=== PATIENT | female | born 1975 | race Caucasian/White ===

== ENCOUNTER 2019-09-29 21:25 | Inpatient (IN) | payer MEDICARE, MEDICAID, SELFPAY ==
[2019-09-29 21:58] VITALS: BP 129/64; PULSE 98; RESP 28; TEMP 37.4; O2SAT 93
[2019-09-29] MEDS: LORAZEPAM INJ 2 MG/ML VIAL IM ×2 (22:00→22:33)
[2019-09-29] MEDS: HALOPERIDOL LACTATE 5 MG/ML VIAL IM ×2 (22:00→22:33)
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
--- NOTE | 2019-09-29 23:14 | PC.NURSE ---
REPORT PROVIDED TO ONCOMING RNFANG
[2019-09-29 23:27] LABS: Add Urine Microscopic? NO; Appearance Urine Clear (Clear); Bilirubin Urine Negative (Negative); Blood Urine Negative (Negative); Color Urine Yellow (Yellow); Glucose Urine UA Negative (Negative); Ketones Urine Negative (Negative); Leukocyte Esterase Ur Negative LEU/UL (Negative); Nitrate Urine Negative (Negative); Protein Urine Negative (Negative); Specific Grav Ur 1.015 (1.010-1.020); Urobilinogen Urine 0.2 mg/dL (0.2-1.0)
[2019-09-29 23:27] LABS: Basophils Absolute Auto 0.04 K/mm3 (0.00-0.10); Basophils Percent Auto 0.2 % (0.0-1.0); Hematocrit 43.2 % (35.0-49.0); Hemoglobin 14.2 g/dL (12.0-15.0); Immature Granulocyte Absolute 0.07 K/mm3 (0.00-0.00); Immature Granulocyte Percent A 0.4 % (0.0-0.0); Lymphocytes Absolute Auto 1.12 K/mm3 (1.10-4.50); Lymphocytes Percent Auto 6.9 % (18.0-42.0); Mean Corpuscular HGB Conc 32.9 g/dL (32.0-36.0); Mean Corpuscular Hemoglobin 30.8 pg (27.0-31.0); Mean Corpuscular Volume 93.7 fL (78.0-102.0); Mean Platelet Volume 10.1 fl (9.2-11.8); Monocytes Absolute Auto 1.17 K/mm3 (0.10-0.90); Monocytes Percent Auto 7.3 % (2.0-11.0); Neutrophils Absolute Auto 13.7 K/mm3 (1.7-7.2); Neutrophils Percent Auto 85.2 % (50.0-70.0); Platelet Count Result 265 K/mm3 (150-420); Red Blood Count 4.61 M/mm3 (4.20-5.40); Red Cell Distribution Width 12.6 % (11.6-14.4); White Blood Count 16.1 K/mm3 (4.8-10.8)
[2019-09-29 23:30] LABS: Pregnancy On Board Control Positive; Specific Gravity Ur 1.015 (1.010-1.035); Urine Pregnancy Test Negative
[2019-09-29 23:32] LABS: Amphetamine Screen Urine Negative (Negative); Barbiturate Screen Urine Negative (Negative); Benzodiazepines Screen Urine Negative (Negative); Cannabinoid Screen Urine Negative (Negative); Cocaine Screen Urine Negative (Negative); Methadone Screen Urine Negative (Negative); Opiate Screen Urine Negative (Negative); Phencyclidine Screen Urine Negative (Negative)
[2019-09-29 23:43] LABS: Alanine Aminotransferase 28 U/L (14-59); Albumin Level 3.6 g/dL (3.4-5.0); Alkaline Phosphatase 72 U/L (46-116); Anion Gap 17.3 mmol/L (7-16); Aspartate Amino Transferase 30 U/L (15-37); Bilirubin,Total 0.4 mg/dL (0.00-1.00); Blood Urea Nitrogen 18 mg/dL (7-18); Calcium 9.3 mg/dL (8.5-10.1); Carbon Dioxide 25 mmol/L (21-32); Chloride 106 mmol/L (98-108); Estimated CRCL calculation 47 ml/min; Estimated Glomerular Filt Rate 47; Glucose 95 mg/dL (70-99); Osmolality Calculated 299 mOsm/kg (285-295); Potassium 4.3 mmol/L (3.5-5.1); Salicylate 0.9 mg/dL (2.8-20.0); Sodium 144 mmol/L (136-145); Thyroid Stimulating Hormone 4.52 uIU/mL (0.36-3.74); Total Protein 6.8 g/dL (6.4-8.2)
[2019-09-29 23:44] LABS: Acetaminophen 0 ug/mL (10-30); Creatine Kinase 553 U/L (26-192); Ethanol < 3 mg/dL (0-6)
--- NOTE | 2019-09-29 23:55 | PC.NURSE ---
Call placed to [facility] and obtained their advice to transfer to [facility] where her Neuro Drs. and psychiatrists are located. Parents request transfer to [facility] where her DrBlaire is located and mom states she has Health care POA. Call placed by Dr. Tran to [facility] for consult and possible transfer.
[2019-09-29 23:59] VITALS: BP 103/50; PULSE 94; RESP 20; O2SAT 99
[2019-09-30] VITALS (8 sets, daily range): BP systolic 106–145; BP diastolic 70–90; PULSE 72–108; RESP 16–20; TEMP 36.3–36.6; O2SAT 97–100; BMI 23.6
--- NOTE | 2019-09-30 00:16 | PC.NURSE ---
ERP discussing case c hospitalist at [facility]. Advised consult c psych at [facility] for possible transfer and admit. ERP Dr. Tran to speak c psych intake at [facility].
--- NOTE | 2019-09-30 00:36 | PC.NURSE ---
Call placed to floor for ER hold until psych consult in AM per [facility] advice. May need to re-evaluate in AM and call back for psych transfer. Call placed to [facility] and report given. Pt. will go to Rm 206 for close obs and Hold until bed placement is found.
--- NOTE | 2019-09-30 01:17 | PC.NURSE ---
0100 Pt. moved to ED hold Rm 206 and kept on cot in restraints, protocol followed for restraints and report given to Mary Murdock and SAMY Denis.
--- NOTE | 2019-09-30 02:00 | PC.NURSE ---
0100 Pt to 206 as an ER hold. Pt is agitated and disoriented and in 4 point restraints. Pt is attempting to hit and kick at caregivers at this time.
--- NOTE | 2019-09-30 02:13 | PC.NURSE ---
0100 [facility] room 206 from ER via stretcher, accompanied by physician, ER nurse & sitter. Pt thrashing, kicking yelling. MICHAEL wrist and ankle restraints in place.
--- NOTE | 2019-09-30 02:36 | PC.NURSE ---
Spo2 @ 0230 97% pulse 84.
--- NOTE | 2019-09-30 03:02 | PC.NURSE ---
0300 Dr. Tran here to see pt. Pt was given haldol 5mg and ativan 2 mg IM to the right thigh to relieve agitation.
[2019-09-30] MEDS: HALOPERIDOL LACTATE 5 MG/ML VIAL IM ×2 (03:08→08:45)
[2019-09-30] MEDS: LORAZEPAM INJ 2 MG/ML VIAL IM ×2 (03:08→11:46)
--- NOTE | 2019-09-30 03:35 | PC.NURSE ---
Spo2 98% pulse 90.
--- NOTE | 2019-09-30 04:30 | PC.NURSE ---
Spo2 100% pulse 84
--- NOTE | 2019-09-30 05:34 | PC.NURSE ---
Spo2 98% pulse 62.
--- NOTE | 2019-09-30 06:27 | PC.NURSE ---
Spo2 99% pulse 62.
--- NOTE | 2019-09-30 07:40 | PC.NURSE ---
Patient cooperative with nurse taking vital signs. Patient mumbling incoherently, restraints loosened, pulses/circulation good. Patient denies any pain. Sitter continue in room with patient.
--- NOTE | 2019-09-30 08:11 | PC.NURSE ---
Pt. returned to ER psych hold rm 5 and placed c camera on and sitter in place outside door.
--- NOTE | 2019-09-30 08:19 | PC.NURSE ---
0800 SITTING IN ROOM WITH PATIENT. PATIENT GETS RESTLESS WITH ANY VOICE STIMULI SHE HEARS FROM HALLWAY, NURSES STATION, OR PEOPLE WALKING BY (THE DOOR IS CLOSED). PATIENT ALSO STARTS TALKING UNRATIONAL WHEN SHE HEARS VOICES OR SOUNDS. KEEPS REPEATING I HEAR YOU, I HEAR YOU, I KNOW WHAT YOU ARE SAYING. I'M GOING TO TAKE CARE IT. LOTS OF TIMES SHE WAS TALKING INSENSIBLE-RAMBLING ON FLIGHT OF IDEAS.
[2019-09-30] MEDS: LORAZEPAM INJ 2 MG/ML VIAL IV PUSH ×4 (08:57→23:54)
--- NOTE | 2019-09-30 09:02 | PC.NURSE ---
0850 Pt. continues to thrash and yell in bed and talking nonsensicle garbled speech. Pt. uncoop. c care and unable to redirect or reorient. Orders obtained for Haldol and Ativan per ERP order. VSS,
--- NOTE | 2019-09-30 09:04 | PC.NURSE ---
ERp called [facility] psych center for bed placement and possible transfer. No beds at this time, # given to fax info on pt. for review and will call back when bed available.
--- NOTE | 2019-09-30 10:01 | PC.NURSE ---
Call back from Dr. Peña, speaking c ERP and advises transfer to someplace in [place]. Dr. Peña states she will speak c pts. mom (POA) to explain need for transfer to another facility.
--- NOTE | 2019-09-30 10:46 | PC.NURSE ---
ERP and this RN spoke c NALLELYA, pts. mom about transfer to appropriate facility that can care for her neuropsych issues. Mom agreeable to transfer to facility in [place] at [facility] if able to accept. Call placed to [facility].
--- NOTE | 2019-09-30 11:54 | PC.NURSE ---
Report to Mary Cameron
--- NOTE | 2019-09-30 12:24 | PC.NURSE ---
Pt continues to thrash, nonsensical speech. sitter at bedside. pt has some redness to wrists from fighting with restraints despite proper calming therapies and close observation. Pt has bruising noted to bilateral legs. Pt does not make sense when she is trying to communicate with staff. Mother asked to step away while we attempt to calm pt.
--- NOTE | 2019-09-30 13:36 | PC.NURSE ---
[facility] called and asked if we would like to speak with psych at [facility], transfered to psych rn charge and message left.
--- NOTE | 2019-09-30 13:45 | PC.NURSE ---
[facility] declined to accept pt.
--- NOTE | 2019-09-30 14:03 | PC.NURSE ---
[facility] contacted about medical bed. Dr Cordova speaking with access line.
--- NOTE | 2019-09-30 14:22 | PC.NURSE ---
[facility] to [facility] contacted.
--- NOTE | 2019-09-30 14:42 | ECG_ITS ---
Measurements Intervals Winter Rate: 65 P: 67 GA: 136 QRS: 58 QRSD: 90 T: 52 QT: 425 QTc: 443 Interpretive Statements SINUS RHYTHM [address] ELEVATION IN DIFFUSE LEADS- PROBABLY EARLY REPOLARIZATION BORDERLINE ECG Electronically Signed On 10-01-2019 7:26:28 CDT by Ramu Zuluaga D.O.
[2019-09-30] MEDS: SODIUM CHLORIDE 0.9% IV 1,000 ML 999 ML IV CONT ×2 (14:59→15:50)
[2019-09-30] MEDS: HALOPERIDOL LACTATE 5 MG/ML VIAL IV PUSH (14:59)
--- NOTE | 2019-09-30 15:00 | PC.NURSE ---
[facility] returned call to state they have no bed available.
[2019-09-30 15:01] LABS: Basophils Absolute Auto 0.03 K/mm3 (0.00-0.10); Basophils Percent Auto 0.3 % (0.0-1.0); Eosinophils Absolute Auto 0.01 K/mm3 (0.02-0.50); Eosinophils Percent Auto 0.1 % (1.0-6.0); Hemoglobin 14.4 g/dL (12.0-15.0); Immature Granulocyte Absolute 0.04 K/mm3 (0.00-0.00); Immature Granulocyte Percent A 0.4 % (0.0-0.0); Lymphocytes Absolute Auto 1.93 K/mm3 (1.10-4.50); Lymphocytes Percent Auto 18.6 % (18.0-42.0); Mean Corpuscular HGB Conc 32.7 g/dL (32.0-36.0); Mean Corpuscular Hemoglobin 30.6 pg (27.0-31.0); Mean Corpuscular Volume 93.6 fL (78.0-102.0); Mean Platelet Volume 10.1 fl (9.2-11.8); Monocytes Percent Auto 8.7 % (2.0-11.0); Neutrophils Absolute Auto 7.5 K/mm3 (1.7-7.2); Neutrophils Percent Auto 71.9 % (50.0-70.0); Platelet Count Result 261 K/mm3 (150-420); Red Cell Distribution Width 12.7 % (11.6-14.4); White Blood Count 10.4 K/mm3 (4.8-10.8)
[2019-09-30 15:24] LABS: Alanine Aminotransferase 52 U/L (14-59); Albumin Level 3.6 g/dL (3.4-5.0); Alkaline Phosphatase 73 U/L (46-116); Aspartate Amino Transferase 94 U/L (15-37); Bilirubin,Total 0.7 mg/dL (0.00-1.00); Blood Urea Nitrogen 12 mg/dL (7-18); Carbon Dioxide 26 mmol/L (21-32); Chloride 106 mmol/L (98-108); Estimated CRCL calculation 56 ml/min; Estimated Glomerular Filt Rate 58; Glucose 84 mg/dL (70-99); Osmolality Calculated 292 mOsm/kg (285-295); Sodium 142 mmol/L (136-145); Total Protein 6.7 g/dL (6.4-8.2)
[2019-09-30 15:35] LABS: Ammonia < 10 umol/L (11-32)
--- NOTE | 2019-09-30 16:50 | PC.NURSE ---
Valproic acid infusion completed. 110ml infused.
[2019-09-30] MEDS: OLANZapine 10 MG INJ VIAL IM (21:08)
--- NOTE | 2019-09-30 21:29 | PC.NURSE ---
dr najera called to recheck restraints, informed she was continent and catheter was not needed at this time, pt is kicking in bed and sitting up tugging at restraints, mumbling incoherently, x2 nurses to give pt IM injection, koban taken off and reapplied to iv site, ankle restraints reapplied, ok per dr najera, questioned pt as to need for bed lambert to which she replied no, restraints removed and loosened on wrists then reapplied
[2019-10-01] VITALS (11 sets, daily range): BP systolic 104–160; BP diastolic 48–93; PULSE 65–96; RESP 16–22; TEMP 36.2–36.9; O2SAT 96–100
[2019-10-01] MEDS: OLANZapine 10 MG INJ VIAL IM (04:41)
[2019-10-01] MEDS: LORAZEPAM INJ 2 MG/ML VIAL IV PUSH ×7 (04:41→23:36)
--- NOTE | 2019-10-01 07:26 | PC.NURSE ---
Ivett RT in room to do EKG. Patient refused. patient stated I had one yesterday I don't need one again today.
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
[2019-10-01] MEDS: CLONAZEPAM 0.5 MG TAB 1 MG PO ×3 (08:46→17:10)
[2019-10-01] MEDS: FERROUS SULFATE 324 MG TABLET PO (08:48)
[2019-10-01] MEDS: lamoTRIgine 100 MG TABLET 200 MG PO (08:48)
[2019-10-01] MEDS: TOPIRAMATE 25 MG TABLET 50 MG PO ×2 (08:48→17:09)
[2019-10-01] MEDS: MORPHINE SULFATE 2 MG/ML INJ IV PUSH ×2 (08:49→19:19)
[2019-10-01] MEDS: METOPROLOL TARTRATE 25 MG TABLET PO ×2 (08:54→17:09)
[2019-10-01 10:57] LABS: Basophils Absolute Auto 0.04 K/mm3 (0.00-0.10); Basophils Percent Auto 0.5 % (0.0-1.0); Hematocrit 42.3 % (35.0-49.0); Hemoglobin 13.8 g/dL (12.0-15.0); Immature Granulocyte Absolute 0.04 K/mm3 (0.00-0.00); Immature Granulocyte Percent A 0.5 % (0.0-0.0); Lymphocytes Absolute Auto 1.42 K/mm3 (1.10-4.50); Lymphocytes Percent Auto 16.9 % (18.0-42.0); Mean Corpuscular HGB Conc 32.6 g/dL (32.0-36.0); Mean Corpuscular Volume 95.1 fL (78.0-102.0); Mean Platelet Volume 9.9 fl (9.2-11.8); Monocytes Absolute Auto 0.56 K/mm3 (0.10-0.90); Monocytes Percent Auto 6.7 % (2.0-11.0); Neutrophils Absolute Auto 6.3 K/mm3 (1.7-7.2); Neutrophils Percent Auto 75.4 % (50.0-70.0); Platelet Count Result 224 K/mm3 (150-420); Red Blood Count 4.45 M/mm3 (4.20-5.40); Red Cell Distribution Width 12.7 % (11.6-14.4); White Blood Count 8.4 K/mm3 (4.8-10.8)
--- NOTE | 2019-10-01 11:15 | PC.NURSE ---
Patients wrists released one at a time for ROM and relief. Patient incontinent. bed linens/gown changed, adult diaper put on.
--- NOTE | 2019-10-01 11:48 | PC.NURSE ---
Patient mother at bedside. Right wrist released from restraint. Using right arm and hand appropriately to drink water with. Will continue to closly monitor.
[2019-10-01 11:56] LABS: Magnesium 2.1 mg/dL (1.8-2.4); Phosphorus 4.1 mg/dL (2.6-4.7)
[2019-10-01 11:57] LABS: Troponin I < 0.02 ng/mL (0.00-0.056)
--- NOTE | 2019-10-01 12:00 | PCDIET ---
Jaimee WHITLEY notified of [facility] 9.8.
[2019-10-01 12:01] LABS: Anion Gap 15.5 mmol/L (7-16); Carbon Dioxide 23 mmol/L (21-32); Chloride 110 mmol/L (98-108); Potassium 4.5 mmol/L (3.5-5.1); Sodium 144 mmol/L (136-145)
[2019-10-01 12:02] LABS: Alanine Aminotransferase 51 U/L (14-59); Albumin Level 3.3 g/dL (3.4-5.0); Alkaline Phosphatase 82 U/L (46-116); Aspartate Amino Transferase 71 U/L (15-37); Bilirubin,Total 0.7 mg/dL (0.00-1.00); Blood Urea Nitrogen 11 mg/dL (7-18); Estimated CRCL calculation 62 ml/min; Estimated Glomerular Filt Rate > 60; Glucose 67 mg/dL (70-99); Osmolality Calculated 295 mOsm/kg (285-295); Total Protein 6.1 g/dL (6.4-8.2)
[2019-10-01] MEDS: DIVALPROEX SODIUM 250 MG TABEC PO ×2 (12:03→17:11)
--- NOTE | 2019-10-01 12:42 | PC.NURSE ---
Pt able to release right wrist restraint. bilateral wrist restraints replaced with assist of 2. skin intact. no redness noted.
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
[2019-10-01 14:43] LABS: Creatine Kinase > 1000 U/L (26-192)
[2019-10-01 14:44] LABS: Creatine Kinase > 1000 U/L (26-192)
--- NOTE | 2019-10-01 21:20 | PC.NURSE ---
notified that patient was extremely agitated. New order received.
--- NOTE | 2019-10-01 22:10 | PC.NURSE ---
MD notified that wrong dose of Depakote given. Will continue to monitor. Lab obtained per MD order.
--- NOTE | 2019-10-01 22:11 | PC.NURSE ---
Patient extremely agitated throughout shift. Attempts made to release restraints. Able to release hands and legs for short period of times, but patient becomes agitated again and restraints reapplied.
--- NOTE | 2019-10-01 23:40 | PC.NURSE ---
Patient yelling and kicking, required 3 staff and mother's help to give Ativan 2mg IVP for agitation. Mother requests MD called to have Ativan changed to oral doseage in future as IVP medication aggitates patient. Patien remains on 1:1 observation and 4 point restraints.
[2019-10-02] VITALS: BP 107/73; PULSE 91; RESP 22; TEMP 37.1; O2SAT 98
[2019-10-02 01:57] LABS: Hematocrit 42.4 % (35.0-49.0); Mean Corpuscular Hemoglobin 30.9 pg (27.0-31.0); Mean Corpuscular Volume 93.6 fL (78.0-102.0); Mean Platelet Volume 9.7 fl (9.2-11.8); Platelet Count Result 256 K/mm3 (150-420); Red Blood Count 4.53 M/mm3 (4.20-5.40); Red Cell Distribution Width 12.6 % (11.6-14.4)
--- NOTE | 2019-10-02 02:22 | PC.NURSE ---
Mother here and voicing concerns about patient medical management at [place], [place]. Would like patient to go to [facility] for differential diagnosis of symptoms.
[2019-10-02 02:42] LABS: Alanine Aminotransferase 55 U/L (14-59); Albumin Level 3.4 g/dL (3.4-5.0); Alkaline Phosphatase 79 U/L (46-116); Anion Gap 15.2 mmol/L (7-16); Aspartate Amino Transferase 63 U/L (15-37); Bilirubin,Total 0.5 mg/dL (0.00-1.00); Blood Urea Nitrogen 14 mg/dL (7-18); Calcium 8.9 mg/dL (8.5-10.1); Carbon Dioxide 24 mmol/L (21-32); Chloride 110 mmol/L (98-108); Estimated CRCL calculation 56 ml/min; Estimated Glomerular Filt Rate 59; Glucose 98 mg/dL (70-99); Osmolality Calculated 300 mOsm/kg (285-295); Potassium 4.2 mmol/L (3.5-5.1); Sodium 145 mmol/L (136-145); Total Protein 6.7 g/dL (6.4-8.2)
--- NOTE | 2019-10-02 02:45 | PC.NURSE ---
Mother states she would like Ativan held if patient sleeping to promote rest. States plan to sleep on couch; Patient remains on continuous observation.
--- NOTE | 2019-10-02 02:45 | PC.NURSE ---
Mother requests staff wait until patient wakes up for Vital Signs and Ativan.
[2019-10-02 03:13] LABS: Troponin I < 0.02 ng/mL (0.00-0.056)
--- NOTE | 2019-10-02 04:31 | PC.NURSE ---
Sleeping, mother in room, sleeping on couch. Skin pink, respirations easy/unlabored. Vital Signs and Ativan held until patient awakens.
--- NOTE | 2019-10-02 05:26 | PC.NURSE ---
Spoke with [employer] PharmacistJaimee regarding order clarification: Ativan 2mg po q4 hours then change Ativan 2mg IVP prn if refuses po Ativan.
--- NOTE | 2019-10-02 06:19 | PC.NURSE ---
Mother going home; patient remains in loose restraints and close observation.
[2019-10-02 08:00] VITALS: BP 102/46; PULSE 74; RESP 18; TEMP 36.4; O2SAT 98
[2019-10-02 09:25] VITALS: PULSE 82
[2019-10-02] MEDS: TOPIRAMATE 25 MG TABLET 50 MG PO ×2 (09:25→17:10)
[2019-10-02] MEDS: METOPROLOL TARTRATE 25 MG TABLET PO (09:25)
[2019-10-02] MEDS: CLONAZEPAM 0.5 MG TAB 1 MG PO ×2 (09:25→15:33)
[2019-10-02] MEDS: lamoTRIgine 100 MG TABLET 200 MG PO (09:26)
[2019-10-02] MEDS: LORAZEPAM 1 MG TABLET 2 MG PO ×3 (09:26→17:10)
[2019-10-02] MEDS: FERROUS SULFATE 324 MG TABLET PO (09:27)
[2019-10-02 10:54] LABS: Creatine Kinase > 1000 U/L (26-192)
--- NOTE | 2019-10-02 11:06 | PC.NURSE ---
Addendum entered by Marisa Chen RN 10/02/19 11:24: @0700 patient is sound asleep. resp even and unlabored. Original Note: @0900 patient remains calm and four point restraints removed sitting up in bed. talks but words are jumbled. talks to someone that is not there. @ x's a few choice words that are come out clear and then back to jumbled. feeding self and drinks all of juice and ensure. eating ice cream. did get oral am meds down. plays with her genitals and claims she is good girl 1015 she is getting more agitated. rocking in bed. playing with the air. her chants of unrecognizable words are getting louder and more angry sounding. starts throwing ensure container across room. declines need to use bathroom. back in four point restraints. sitter with her. 1120 sits up in bed off and on yelling at someone that is not here. jerks at restraints and lies back down. restraints are checked
--- NOTE | 2019-10-02 13:01 | PM.IMPN ---
Progress Note: A&P Assessment and Plan (1) Dementia associated with other underlying disease with behavioral disturbance: Onset Date: Unknown <Jaimee Almeida NP - Last Filed: 10/02/19 15:35> Code(s): F02.81 - Dementia in other diseases classified elsewhere with behavioral disturbance <Jaimee Almeida NP - Last Filed: 10/02/19 15:35> Status: Acute <Jaimee Almeida NP - Last Filed: 10/02/19 15:35> Assessment and Plan: MRI results was 4 years ago in 2016 and showed Advanced volume loss of brain matter for her age at that time. Her PCP was hoping for patient to get to [place] or [facility] or [facility] for further advanced workup of Neuro/Psych matters. currently A and O x1-2. incontinent voids Talks, moves extremities, eats, drinks, voids. Walking on September 28, restraints at this time. <Jaimee Almeida NP - Last Filed: 10/02/19 15:35> (2) Schizo-affective schizophrenia, chronic condition with acute exacerbation: Onset Date: ~09/29/19 <Jaimee Almeida NP - Last Filed: 10/02/19 15:35> Code(s): F25.9 - Schizoaffective disorder, unspecified <Jaimee Almeida NP - Last Filed: 10/02/19 15:35> Status: Acute <Jaimee Almeida NP - Last Filed: 10/02/19 15:35> Assessment and Plan: continued hallucinations and delusions (auditory and visual - seeing and hearing multiple other humans or personalities alongside her bed in her hospital room) disorganized speech persistent with intermittent periods of clear and understandable speech flat affect and inability to look you in the eye impaired attention unable to test memory - but mother /grit blaster stated that Marisa is currently at her Alert and Orientation Baseline (unable to tell you Month/Date/year/Location) for the last several months. treating with Clozapine and Olanzapine; also had haldol and depakote at admission. no concerning tardive dyskinesia noted at this time (her mother stated in the past with multiple Zyprexa doses that she had started to show). continuous nursing checks and monitoring, bed alarm on, room by nurses station. Safety/Suicide/Fall Risk precautions ordered. <Jaimee Almeida NP - Last Filed: 10/02/19 15:35> (3) Seizure disorder: Onset Date: Unknown <Jaimee Almeida NP - Last Filed: 10/02/19 15:35> Code(s): G40.909 - Epilepsy, unspecified, not intractable, without status epilepticus <Jaimee Almeida NP - Last Filed: 10/02/19 15:35> Status: Acute <Jaimee Almeida NP - Last Filed: 10/02/19 15:35> Assessment and Plan: Seizure precautions placed nursing monitoring and sitter watch room at nurses station mother and grit blaster reports no generalized seizures noted in several weeks/months. Monitoring CBC, CMP with K/Mag/PHos, Cardiac Panel, TSH, urine drug panel completed. <Jaimee Almeida NP - Last Filed: 10/02/19 15:35> (4) Acute exacerbation of psychosis: Onset Date: ~09/29/19 <Jaimee Almeida NP - Last Filed: 10/02/19 15:35> Code(s): F29 - Unspecified psychosis not due to a substance or known physiological condition <Jaimee Almeida NP - Last Filed: 10/02/19 15:35> Status: Acute <Jaimee Almeida NP - Last Filed: 10/02/19 15:35> Assessment and Plan: see plan for Schizoaffective disorder, acute on chronic PRN Haldol as needed. titrating psych and anti-anxiety medications as patient's behavior and status warrant. Monitoring CBC, CMP with K/Mag/PHos, Cardiac Panel, TSH, urine drug panel completed. Ordered MRI on Friday, CT head was already ordered at admission Blood and urine cultures, ABG and Lactic ordered. <Jaimee Almeida NP - Last Filed: 10/02/19 15:35> (5) Menopausal symptoms: Onset Date: Unknown <Jaimee Almeida NP - Last Filed: 10/02/19 15:35> Code(s): N95.1 - Menopausal and female climacteric states <Jaimee Almeiad NP - Last Filed: 10/02/19 15:35> Status:
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
[2019-10-02 15:00] LABS: Lactate Dehydrogenase 454 U/L (81-234)
--- NOTE | 2019-10-02 15:19 | PC.NURSE ---
mental health dontae fajardo is here to speak with mother and karolinaal pt, pt is yelling and refusing to take her po meds in ice cream
--- NOTE | 2019-10-02 15:21 | PC.NURSE ---
[facility] here to eval her.
[2019-10-02 16:00] VITALS: BP 130/83; PULSE 108; RESP 20; TEMP 37.3
--- NOTE | 2019-10-02 16:12 | PC.NURSE ---
pt stated she had to pee, attempted to put her on bedpan, pt became extremely agitated and refused, able to reattach diaper once she calmed down, mother breezy is in waiting room speaking with mental health
--- NOTE | 2019-10-02 17:57 | PC.NURSE ---
mother in room, pt took some of her pills after multiple attempts with ice cream, pt continues to scream incoherently, dr is aware we are unable to place tele or fluids on her at this time
--- NOTE | 2019-10-02 18:34 | PC.NURSE ---
mental health advocate, reginaldo, has had no luck finding placement, 11 hospitals called, 2 she is supposed to call back at 1999 and let us know, she is with breezy now giving her an update before she leaves, pt is sitting up in bed, kicking legs, mumbling to herself
[2019-10-02 20:00] VITALS: BP 147/100; PULSE 105; RESP 24; TEMP 37.2; O2SAT 98
[2019-10-02] MEDS: LORAZEPAM INJ 2 MG/ML VIAL IV PUSH (21:41)
--- NOTE | 2019-10-02 21:45 | PC.NURSE ---
4 nurses required to start new iv, iv in L foot, infiltrated iv removed in R AC, catheter intact, ankle restraints removed and then repositioned, pt is hysterical and attempting to kick staff, pt is incontinent of urine, gown changed
[2019-10-02] MEDS: SODIUM CHLORIDE 0.9% IV 500 ML 300 ML (22:04)
[2019-10-03] VITALS: BP 116/72; PULSE 64; RESP 16; TEMP 36.3; O2SAT 100
--- NOTE | 2019-10-03 | PC.NURSE ---
Restraint released. Changed sheets. Changed gown. Deoderant. Transferred patient from bed to commode.
[2019-10-03] MEDS: LORAZEPAM INJ 2 MG/ML VIAL IV PUSH ×3 (01:24→11:16)
--- NOTE | 2019-10-03 01:51 | PC.NURSE ---
pt thrashing around in bed. Sobbing and crying. rambling on about how she is a manager star, calls herself Meghan Julio and wants nurse to call Florinda De León and tell him that we have her confused with someone else. reality orientation provided, unsuccessful. 4 point restraints remain in place. Ativan was given IVP since patient refused oral. no evidence of pain. circulation to all extremities WNL. fluids offered, pt refused.
--- NOTE | 2019-10-03 04:33 | PC.NURSE ---
pt uncooperative with vitals check. thrashing around in bed. rambling non stop. delusional, speaking to people who are not present. pt has 2 different voices that she uses. She speaks to a Kylee and then speaks to a Marisa. continuous rambling about child molesters, sex offenders, and people touching her, looking at her and taking photos. crying off and on. 4 point restraints continue. circulation to all extremities WNL. pt refuses fluids when offered, screams and thrashes when nurse approaches. repositions self in the bed. under continuous monitoring for safety.
--- NOTE | 2019-10-03 05:14 | PC.NURSE ---
pt refused po ativan. attempted to put pills in majic cup, pt cont to refuse to take. IVP ativan given instead as per order.
--- NOTE | 2019-10-03 07:26 | PC.NURSE ---
Brushed patient's hair. Attempted wash patient's face. Patient refused.
[2019-10-03 07:50] VITALS: BP 156/89; PULSE 100; TEMP 36.5; O2SAT 98
[2019-10-03] MEDS: ENOXAPARIN 40 MG/0.4 ML SYRINGE SUB-Q (08:15)
--- NOTE | 2019-10-03 08:45 | PC.NURSE ---
Patient transferred back to bed. Restraints replaced
--- NOTE | 2019-10-03 09:20 | PC.NURSE ---
Yonathan fajardo aware and working on placement
--- NOTE | 2019-10-03 09:34 | PM.IMPN ---
Progress Note: A&P Assessment and Plan (1) Dementia associated with other underlying disease with behavioral disturbance: Onset Date: Unknown <Jaimee Almeida NP - Last Filed: 10/03/19 15:06> Code(s): F02.81 - Dementia in other diseases classified elsewhere with behavioral disturbance <Jaimee Almeida NP - Last Filed: 10/03/19 15:06> Status: Acute <Jaimee Almeida NP - Last Filed: 10/03/19 15:06> Assessment and Plan: MILD. CHRONIC. PROGRESSIVE. Functional/ambulatory and completing ADLs at home prior to this admission, lived with parents. MRI results was 4 years ago in 2016 and showed Advanced volume loss of brain matter for her age at that time. Her PCP was hoping for patient to get to [place] or [facility] or [facility] for further advanced workup of Neuro/Psych matters. currently A and O x1-2. incontinent and continent voids Talks, moves extremities, eats, drinks, voids. Walking on September 28, restraints at this time. <Jaimee Almeida NP - Last Filed: 10/03/19 15:06> (2) Schizo-affective schizophrenia, chronic condition with acute exacerbation: Onset Date: ~09/29/19 <Jaimee Almeida NP - Last Filed: 10/03/19 15:06> Code(s): F25.9 - Schizoaffective disorder, unspecified <Jaimee Almeida NP - Last Filed: 10/03/19 15:06> Status: Acute <Jaimee Almeida NP - Last Filed: 10/03/19 15:06> Assessment and Plan: ACUTE on CHRONIC. continued hallucinations and delusions (auditory and visual - seeing and hearing multiple other humans or personalities alongside her bed in her hospital room) disorganized speech persistent with intermittent periods of clear and understandable speech flat affect and inability to look you in the eye impaired attention unable to test memory - but mother /assembly technician stated that Marisa is currently at her Alert and Orientation Baseline (unable to tell you Month/Date/year/Location) for the last several months. treating with Clozapine and Olanzapine; also had haldol and depakote at admission. no concerning tardive dyskinesia noted at this time (her mother stated in the past with multiple Zyprexa doses that she had started to show). continuous nursing checks and monitoring, bed alarm on, room by nurses station. Safety/Suicide/Fall Risk precautions ordered. <Jaimee Almeida NP - Last Filed: 10/03/19 15:06> (3) Seizure disorder: Onset Date: Unknown <Jaimee Almeida NP - Last Filed: 10/03/19 15:06> Code(s): G40.909 - Epilepsy, unspecified, not intractable, without status epilepticus <Jaimee Almeida NP - Last Filed: 10/03/19 15:06> Status: Acute <Jaimee Almeida NP - Last Filed: 10/03/19 15:06> Assessment and Plan: History of..... CONTROLLED at this time. Patient has not had any s/s of seizures since ED/ER evaluation on 09/28. Seizure precautions placed nursing monitoring and sitter watch room near nurses station mother and assembly technician reports no generalized or partial seizures noted in several weeks/months. Monitoring CBC, CMP with K/Mag/PHos, Cardiac Panel, TSH, urine drug panel completed. <Jaimee Almeida NP - Last Filed: 10/03/19 15:06> (4) Acute exacerbation of psychosis: Onset Date: ~09/29/19 <Jaimee Almeida NP - Last Filed: 10/03/19 15:06> Code(s): F29 - Unspecified psychosis not due to a substance or known physiological condition <Jaimee Almeida NP - Last Filed: 10/03/19 15:06> Status: Acute <Jaimee Almeida NP - Last Filed: 10/03/19 15:06> Assessment and Plan: IMPROVED. see plan for Schizoaffective disorder, acute on chronic PRN Haldol as needed. titrating psych and anti-anxiety medications as patient's behavior and status warrant. Monitoring CBC, CMP with K/Mag/PHos, Cardiac Panel, TSH, urine drug panel completed. Ordered MRI on Friday, CT head was already ordered at admission Blood and urine cultures and Lactic ordered. <Jaimee Henson
--- NOTE | 2019-10-03 09:35 | PC.NURSE ---
Jaimee Almeida, RETENTION SPECIALIST in with patient at this time.
--- NOTE | 2019-10-03 09:45 | PC.NURSE ---
Attempting multiple times to get patient to take medication. Patient refusing. Patient refusing all care. Thrashes, screams.
[2019-10-03 11:03] LABS: Hematocrit 44.4 % (35.0-49.0); Hemoglobin 14.3 g/dL (12.0-15.0); Mean Corpuscular HGB Conc 32.2 g/dL (32.0-36.0); Mean Corpuscular Hemoglobin 30.4 pg (27.0-31.0); Mean Corpuscular Volume 94.3 fL (78.0-102.0); Mean Platelet Volume 9.9 fl (9.2-11.8); Platelet Count Result 256 K/mm3 (150-420); Red Blood Count 4.71 M/mm3 (4.20-5.40); Red Cell Distribution Width 12.7 % (11.6-14.4); White Blood Count 9.6 K/mm3 (4.8-10.8)
[2019-10-03 11:31] LABS: Alanine Aminotransferase 50 U/L (14-59); Albumin Level 3.5 g/dL (3.4-5.0); Alkaline Phosphatase 78 U/L (46-116); Anion Gap 11.7 mmol/L (7-16); Aspartate Amino Transferase 45 U/L (15-37); Bilirubin,Total 0.5 mg/dL (0.00-1.00); Blood Urea Nitrogen 15 mg/dL (7-18); Calcium 9.7 mg/dL (8.5-10.1); Carbon Dioxide 28 mmol/L (21-32); Chloride 112 mmol/L (98-108); Estimated CRCL calculation 57 ml/min; Estimated Glomerular Filt Rate 60; Glucose 106 mg/dL (70-99); Osmolality Calculated 304 mOsm/kg (285-295); Potassium 4.7 mmol/L (3.5-5.1); Sodium 147 mmol/L (136-145)
[2019-10-03 11:32] LABS: Troponin I < 0.02 ng/mL (0.00-0.056)
[2019-10-03 11:33] LABS: Creatine Kinase > 1000 U/L (26-192)
[2019-10-03 11:34] LABS: Ammonia 12 umol/L (11-32)
[2019-10-03 11:35] LABS: Lactate Dehydrogenase 383 U/L (81-234)
[2019-10-03 11:36] LABS: Lactic Acid 2.5 mmol/L (0.4-2.0)
[2019-10-03 12:00] VITALS: BP 133/100; PULSE 107; RESP 24; TEMP 36.8; O2SAT 99
--- NOTE | 2019-10-03 12:33 | PC.NURSE ---
Left wrist restraint removed. Patient eating lunch. Sitter at bedside.
[2019-10-03] MEDS: lamoTRIgine 100 MG TABLET 200 MG PO (13:06)
[2019-10-03] MEDS: TOPIRAMATE 25 MG TABLET 50 MG PO (13:06)
--- NOTE | 2019-10-03 13:27 | PC.NURSE ---
Patient hallucinating and delusional throughout day. Patient talking, yelling, screaming at people that are not there. Several different personalities noticed.
[2019-10-03 13:35] LABS: Bilirubin Direct 0.2 mg/dL (0-0.2)
--- NOTE | 2019-10-03 13:35 | PC.NURSE ---
Patient's mother in room. Attempted to give PO medications. Patient refused.
--- NOTE | 2019-10-03 13:54 | PC.NURSE ---
l@ this time [facility] has no luck with bed. still open bed. they claims she is to check back in a couple hours to [facility]. all other claims no beds. Kyung from [facility] claims there is a neuro unit in [place] and they may have openings on friday.
[2019-10-03] MEDS: OLANZapine 10 MG INJ VIAL IM (13:56)
--- NOTE | 2019-10-03 14:18 | PC.NURSE ---
Depend placed with assistance from mother of patient
[2019-10-03] MEDS: LORAZEPAM INJ 2 MG/ML VIAL IM (15:11)
[2019-10-03] MEDS: MORPHINE SULFATE 2 MG/ML INJ IM (15:15)
--- NOTE | 2019-10-03 15:34 | PC.NURSE ---
Patient resting in bed
[2019-10-03 16:46] VITALS: BP 132/95; PULSE 104; RESP 22; TEMP 36.6; O2SAT 98
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
--- NOTE | 2019-10-03 17:15 | PC.NURSE ---
Patient continues to yell and scream at mother, staff, hallucinations
[2019-10-03 18:15] LABS: Topiramate 1.6 mcg/mL (***)
[2019-10-03 18:28] VITALS: PULSE 104
[2019-10-03] MEDS: METOPROLOL TARTRATE 25 MG TABLET PO (18:28)
[2019-10-03] MEDS: LORAZEPAM 1 MG TABLET 2 MG PO ×2 (18:29→20:24)
[2019-10-03] MEDS: CLONAZEPAM 0.5 MG TAB 1 MG PO (18:29)
[2019-10-03 20:00] VITALS: BP 118/87; PULSE 96; RESP 16; TEMP 37; O2SAT 100
[2019-10-04] MEDS: OLANZapine 10 MG INJ VIAL IM ×2 (00:38→06:03)
[2019-10-04] MEDS: LORAZEPAM 1 MG TABLET 2 MG PO ×4 (00:39→23:21)
[2019-10-04 00:41] LABS: Lamotrigine Lamictal 6.3 mcg/mL (4.0-18.0)
--- NOTE | 2019-10-04 06:12 | PC.NURSE ---
pt has slept all shift. continues under direct supervision. 4 point restraints continue as well. released and circulation assessed frequently. IM zyprexa given, po ativan not given, pt refuses to take.
--- NOTE | 2019-10-04 07:30 | PC.NURSE ---
Patient sleeping quietly in bed at present. Showing no signs of distress. Breathing even and unlabored. Nurse continue to oberserve patient closely.
--- NOTE | 2019-10-04 08:30 | PC.NURSE ---
Patient sleeping quietly and restfully. No signs of distress. Medication being held until patient wakes up per STERILE PREPARATION TECHNICIAN Jaimee.
[2019-10-04 08:45] VITALS: PULSE 58; RESP 20; O2SAT 100
[2019-10-04 09:07] LABS: T4 Thyroxine 12.7 mcg/dL (5.1-11.9)
--- NOTE | 2019-10-04 09:35 | PM.IMPN ---
Progress Note: A&P Assessment and Plan (1) Dementia associated with other underlying disease with behavioral disturbance: Onset Date: Unknown Code(s): F02.81 - Dementia in other diseases classified elsewhere with behavioral disturbance Status: Acute Assessment and Plan: MILD. CHRONIC. PROGRESSIVE. Functional/ambulatory and completing ADLs at home prior to this admission, lived with parents. MRI results was 4 years ago in 2016 and showed Advanced volume loss of brain matter for her age at that time. Her PCP was hoping for patient to get to [place] or [facility] or [facility] for further advanced workup of Neuro/Psych matters. currently A and O x1-2. incontinent and continent voids Talks, moves extremities, eats, drinks, voids. Walking on September 28, restraints at this time. (2) Schizo-affective schizophrenia, chronic condition with acute exacerbation: Onset Date: ~09/29/19 Code(s): F25.9 - Schizoaffective disorder, unspecified Status: Acute Assessment and Plan: ACUTE on CHRONIC. continued hallucinations and delusions (auditory and visual - seeing and hearing multiple other humans or personalities alongside her bed in her hospital room) disorganized speech persistent with intermittent periods of clear and understandable speech flat affect and inability to look you in the eye impaired attention unable to test memory - but mother /heating engineer stated that Marisa is currently at her Alert and Orientation Baseline (unable to tell you Month/Date/year/Location) for the last several months. treating with Clonazepam (same home oral scheduled doses) and Olanzapine (now reduced 5mg Q8hr IM doses); also haldol and depakote were tried at admission. continue home doses of lamotrigine 200mg daily (confirmed with patient's mother and PCP Dr. Peña over the phone) no concerning tardive dyskinesia or blepharitis noted at this time (her mother stated in the past with multiple Zyprexa doses that she had started to show). continuous nursing checks and monitoring, bed alarm on, room by nurses station. Safety/Suicide/Fall Risk precautions ordered. (3) Acute exacerbation of psychosis: Onset Date: ~09/29/19 Code(s): F29 - Unspecified psychosis not due to a substance or known physiological condition Status: Acute Assessment and Plan: IMPROVED. see plan for Schizoaffective disorder, acute on chronic PRN Haldol as needed. titrating psych and anti-anxiety medications as patient's behavior and status warrant. Monitoring CBC, CMP with K/Mag/PHos, Cardiac Panel, TSH, UA, Lactic, blood cultures, urine drug panel completed - stable and improved. CT head ordered (4) Menopausal symptoms: Onset Date: Unknown Code(s): N95.1 - Menopausal and female climacteric states Status: Acute Assessment and Plan: IMPROVING, CONTROLLED, RESOLVED at this time. noted on the first 1 to 2 days of admission: having Somatic Hallucinations with feelings of being touched and Distracted by touching/manipulating her Vagina; moaning and yelling that she is a midaged women going through menopause - RESOLVED - none noted for last 3 days of hospitalization. her mother stated that Marisa had not had a pelvic exam in several years history of grandparent with ovarian cancer unable to complete a pelvic exam or Pap smear at this time. possible hormone changes affecting behavior and Psych medication absorption/effectiveness - Transfer for CONSULTATION inpatient Psychiatrist and/or Psychologist to titrate and manage appropriate Mental health Medications. can be further worked up after Psych behaviours better controlled and patient on a more functional path. DEFERRED. (5) Elevated creatine kinase level: Code(s): R74.8 - Abnormal levels of other serum enzymes Status: Acute Assessment and Plan: CONSISTENT IMPROVEMENT. She is medically stable and ready for Discharge to an Inpatient Psych hospitalization.
--- NOTE | 2019-10-04 09:45 | PC.NURSE ---
Patient sleeping quietly in bed. No signs of distress noted. Breathing unlabored. shows no distress. Medication being held until patient wakes up per FULLING MILL OPERATOR Jaimee.
--- NOTE | 2019-10-04 10:15 | PC.NURSE ---
Patient resting in bed. Restraints remain released at present.
[2019-10-04 10:30] VITALS: BP 115/76; PULSE 99; RESP 20; TEMP 36.7; O2SAT 96
[2019-10-04] MEDS: CLONAZEPAM 0.5 MG TAB 1 MG PO ×3 (11:05→17:07)
[2019-10-04] MEDS: ENOXAPARIN 40 MG/0.4 ML SYRINGE SUB-Q (11:05)
[2019-10-04] MEDS: TOPIRAMATE 25 MG TABLET 50 MG PO ×2 (11:05→17:07)
[2019-10-04] MEDS: FERROUS SULFATE 324 MG TABLET PO (11:05)
[2019-10-04] MEDS: lamoTRIgine 100 MG TABLET 200 MG PO (11:05)
--- NOTE | 2019-10-04 11:05 | PC.NURSE ---
Patient given medication in peanutbutter on garaham crackers. Patient took medication with no issues. Sitting up in bed awake. Pt. unable to follow commands.
--- NOTE | 2019-10-04 11:20 | PC.NURSE ---
Lab here to draw patients blood. This nurse and 3x other nurses required to restraint patient in order to draw blood for labs. Patient tolerated poor to fair. Patient calmed down once labs drawn. Patient remains unrestrained at present.
[2019-10-04 11:29] LABS: Hematocrit 43.6 % (35.0-49.0); Hemoglobin 13.7 g/dL (12.0-15.0); Mean Corpuscular HGB Conc 31.4 g/dL (32.0-36.0); Mean Corpuscular Hemoglobin 30.4 pg (27.0-31.0); Mean Corpuscular Volume 96.9 fL (78.0-102.0); Platelet Count Result 230 K/mm3 (150-420); White Blood Count 7.8 K/mm3 (4.8-10.8)
[2019-10-04 11:45] LABS: Alanine Aminotransferase 44 U/L (14-59); Albumin Level 3.3 g/dL (3.4-5.0); Alkaline Phosphatase 66 U/L (46-116); Anion Gap 14.9 mmol/L (7-16); Aspartate Amino Transferase 38 U/L (15-37); Bilirubin,Total 0.4 mg/dL (0.00-1.00); Blood Urea Nitrogen 14 mg/dL (7-18); Calcium 9.8 mg/dL (8.5-10.1); Carbon Dioxide 27 mmol/L (21-32); Chloride 110 mmol/L (98-108); Estimated CRCL calculation 54 ml/min; Estimated Glomerular Filt Rate 56; Glucose 192 mg/dL (70-99); Osmolality Calculated 309 mOsm/kg (285-295); Potassium 4.9 mmol/L (3.5-5.1); Sodium 147 mmol/L (136-145); Total Protein 6.5 g/dL (6.4-8.2)
[2019-10-04 11:46] LABS: Creatine Kinase 982 U/L (26-192); Lactate Dehydrogenase 289 U/L (81-234)
[2019-10-04 11:49] LABS: Lactic Acid 4.9 mmol/L (0.4-2.0)
--- NOTE | 2019-10-04 12:10 | PC.NURSE ---
[facility] called. spoke with Kyung. no beds available at [facility] at this time. She will check again with Fro[facility] in a few hours.
--- NOTE | 2019-10-04 12:10 | PC.NURSE ---
restraints reapplied due to patient jumping out of bed, risk of falling/harming herself. Patient toelrated fair. Resting in bed with hob elevated.
--- NOTE | 2019-10-04 13:00 | PC.NURSE ---
Patients mother here to visit with patient.
--- NOTE | 2019-10-04 13:25 | PC.NURSE ---
Ativan given in peanut butter on garaham cracker to help calm agitation. Patient is to have CT this afternoon.
--- NOTE | 2019-10-04 14:14 | PC.NURSE ---
Patient resting in bed with hob elevated. Mother continue in room. Patient took medication in peanut butter on garaham crackers, took medication with no issues. Pt. moderatly calm at present. Continue to talk to self. Occasionally kicking/pulling/picking at things.
[2019-10-04 14:30] VITALS: PULSE 95; RESP 20; O2SAT 98
--- NOTE | 2019-10-04 15:30 | PC.NURSE ---
Dr. Haines in room to see patient and speak with patients mother.
--- NOTE | 2019-10-04 15:45 | PC.NURSE ---
patient resting quietly in bed at present. Restraints continue per orders.
[2019-10-04 16:45] VITALS: BP 114/82; PULSE 108; RESP 20; TEMP 37; O2SAT 99
--- NOTE | 2019-10-04 16:45 | PC.NURSE ---
Patient tugging/pulling at restraints. Pt. becoming more agitated and irritated with restraints. Restraints released to help ease agitation of patient. Patients agitation decreased greatly with release of restraints. Patient sitting up in bed. Continue having auditory/visual hallucinations. Nurse to continue to monitor patient closely.
--- NOTE | 2019-10-04 17:17 | PC.NURSE ---
Addendum entered by Becca Wesley RN 10/04/19 18:37: auditory hallucinations. Original Note: Patient took medication in food with no issues. Sitting up in bed with hob elevated. Pt. having outburts every few minutes. Restraints remain released at present. Pt. has attempted to get out of bed 2x, but scoots back into bed when nurse comes into room without any ques. Pt. continues to have vocal and visual hallucinations, speaking/holding conversations with people who are not present. Pt. ate 100% of supper with minimal assist.
[2019-10-04 20:00] VITALS: BP 124/86; PULSE 88; RESP 20; TEMP 36.7; O2SAT 97
[2019-10-04] MEDS: METOPROLOL TARTRATE 25 MG TABLET 12.5 MG PO (21:05)
[2019-10-04] MEDS: DOCUSATE SODIUM 100 MG CAPSULE PO (21:06)
--- NOTE | 2019-10-04 22:12 | PC.NURSE ---
Patient accepted at [facility] in [place], [place]. Dr. Moulton is the acceptiing phycisian. Several phone calls made for transportation from this hospital to [place], [place]. [facility] stated they may have a crew available in A.M. and to call back. Gregoria from [facility] notified of the delay of transfer.
--- NOTE | 2019-10-04 22:16 | PC.NURSE ---
Chart faxed to [facility] in [place]. Call made to [facility] to be sure they received the fax. Charge Nurse verified paperwork was received.
--- NOTE | 2019-10-04 22:30 | PM.EVENT ---
Event Note Event Note Event Note: Patient slept overnight after she was placed on Zyprexa yesterday. Patient was order for restraints for a considerable time this afternoon. Patient had modest agitation on waking for exam this morning. Does not give direct answers to questions. Lungs clear, cardiovascular exam is normal with good distal pulses and warm dry extremities. Abdomen is nontender. Appears to be a partially healed ulceration on her tailbone. Awaiting placement in psych facility. Discussed her care with Dr. 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 Kidney function is stable and CK levels are still EA decreasing. Concerns about intake persist as her lactic acid is increased over the last 24 hours. Will carefully watch her who take is supplement with IV fluids as needed. I have examined the patient reviewed the chart. I discussed the patient's care with A Juan Pablo BLOOM and agree with her assessment and plan.
--- NOTE | 2019-10-04 23:21 | PC.NURSE ---
Very agitated. 4 Staff members Required to hold patient and reapplication of restraints because patients kicking and trying to throw self out of bed. Ativan 2mg po given with peanut butter and yazmin crackers and swallowed it with sips of pepsi.
[2019-10-04 23:56] VITALS: BP 104/70; PULSE 60; RESP 20; TEMP 36.9; O2SAT 100
--- NOTE | 2019-10-05 00:50 | PC.NURSE ---
0045 Pt out of the left wrist restraint and attempting to untie the other wrist restraint. Pt also observed to be picking at a sore on top of her scalp. Left wrist restraint reapplied by two staff members.
--- NOTE | 2019-10-05 01:18 | PC.NURSE ---
Pt alternates between laying down and sitting up in bed. She still has occasional outbursts of yelling.
--- NOTE | 2019-10-05 02:24 | PC.NURSE ---
0158 Pt continues to yell and cry out as well as kick and pick at herself. Pt becoming more agitated and restless. Pt was given diphenhydramine 50 mg PO in soda to promote rest. Side rails up x4 and restraints remain in place x4.
[2019-10-05] MEDS: LORAZEPAM 1 MG TABLET 2 MG PO ×3 (04:06→11:26)
--- NOTE | 2019-10-05 04:18 | PC.NURSE ---
0404 Pt given Ativan 2 mg and Zyprexa 5 mg PO in peanut butter with a cracker. Bed linens were changed as was pt's gown.
--- NOTE | 2019-10-05 04:35 | PC.NURSE ---
0415 Attempted to take pt's vital signs but she refused.
--- NOTE | 2019-10-05 04:52 | PC.NURSE ---
Pt kicking the mattress and yelling quit looking at me even though no one is in the room.
--- NOTE | 2019-10-05 05:08 | PC.NURSE ---
Pt is agitated and yelling out; Two staff nurses went in to take pt's vital signs and pt became belligerent and started hitting at staff. Pt remains uncooperative at this time.
--- NOTE | 2019-10-05 05:32 | PC.NURSE ---
Cuong from the [facility] called and inquired about pt. Explained to him the transportation problem and he asked that we call the intake line at when we have pt ready to be transported to their facility.
--- NOTE | 2019-10-05 06:38 | PC.NURSE ---
0611 Dr. Haines notified of pt's agitation and yelling. orders recieved and noted.
--- NOTE | 2019-10-05 06:39 | PC.NURSE ---
0632 Pt given ativan 2 mg and zyprexa 5 mg PO as ordered. Pt remains in restraints at this time.
[2019-10-05 07:00] VITALS: BP 132/84; PULSE 98; RESP 20; TEMP 37; O2SAT 97
--- NOTE | 2019-10-05 07:33 | PC.NURSE ---
Called [facility]. spoke with Aleyda about transport to [facility]. She stated she will call back shortly with possible availability to transport patient.
[2019-10-05 08:01] VITALS: PULSE 98
[2019-10-05] MEDS: CLONAZEPAM 0.5 MG TAB 1 MG PO (08:01)
[2019-10-05] MEDS: METOPROLOL TARTRATE 25 MG TABLET 12.5 MG PO (08:01)
[2019-10-05] MEDS: lamoTRIgine 100 MG TABLET 200 MG PO (08:02)
[2019-10-05] MEDS: DOCUSATE SODIUM 100 MG CAPSULE PO (08:02)
[2019-10-05] MEDS: TOPIRAMATE 25 MG TABLET 50 MG PO (08:02)
--- NOTE | 2019-10-05 08:40 | PC.NURSE ---
Mother here to sit with patient. Patient continue to have auditory/visual hallucinations. Kicking/hitting bed. Attempting to hit self and staff at times. Yelling/screaming out. Mother sitting at bedside. Pt. took medication in peanutbutter on a garaham cracker.
--- NOTE | 2019-10-05 10:55 | PM.DS ---
DS: Diagnosis Admitting Diagnosis Admitting Diagnosis: Dementia in other diseases classified elsewhere with behavioral disturbance <Jaimee Almeida NP - Last Filed: 10/05/19 14:20> Discharge Diagnosis (1) Dementia associated with other underlying disease with behavioral disturbance: Onset Date: Unknown <Jaimee Almeida NP - Last Filed: 10/05/19 14:20> Code(s): F02.81 - Dementia in other diseases classified elsewhere with behavioral disturbance <Jaimee Almeida NP - Last Filed: 10/05/19 14:20> Status: Acute <Jaimee Almeida NP - Last Filed: 10/05/19 14:20> Assessment and Plan: MILD. CHRONIC. PROGRESSIVE. Functional/ambulatory and completing ADLs at home prior to this admission, lived with parents. MRI results was 4 years ago in 2016 and showed Advanced volume loss of brain matter for her age at that time. Her PCP was hoping for patient to get to [place] or [facility] or [facility] for further advanced workup of Neuro/Psych matters. currently A and O x2-3 today. incontinent and continent voids Talks, moves extremities, eats, drinks, voids. Walking on September 28, restraints at this time. <Jaimee Almeida NP - Last Filed: 10/05/19 14:20> (2) Schizo-affective schizophrenia, chronic condition with acute exacerbation: Onset Date: ~09/29/19 <Jaimee Almeida NP - Last Filed: 10/05/19 14:20> Code(s): F25.9 - Schizoaffective disorder, unspecified <Jaimee Almeida NP - Last Filed: 10/05/19 14:20> Status: Acute <Jaimee Almeida NP - Last Filed: 10/05/19 14:20> Assessment and Plan: ACUTE on CHRONIC. continued hallucinations and delusions (auditory and visual - seeing and hearing multiple other humans or personalities alongside her bed in her hospital room) disorganized speech persistent with intermittent periods of clear and understandable speech flat affect and inability to look you in the eye impaired attention unable to test memory - but mother /wellness guide stated that Marisa is currently at her Alert and Orientation Baseline (unable to tell you Month/Date/year/Location) for the last several months. treating with Clonazepam (same home oral scheduled doses) and Olanzapine (now reduced 5mg Q8hr IM doses); also haldol and depakote were tried at admission. continue home doses of lamotrigine 200mg daily (confirmed with patient's mother and PCP Dr. Peña over the phone) no concerning tardive dyskinesia or blepharitis noted at this time (her mother stated in the past with multiple Zyprexa doses that she had started to show). continuous nursing checks and monitoring, bed alarm on, room by nurses station. Safety/Suicide/Fall Risk precautions ordered. <Jaimee Almeida NP - Last Filed: 10/05/19 14:20> (3) Acute exacerbation of psychosis: Onset Date: ~09/29/19 <Jaimee Almeida NP - Last Filed: 10/05/19 14:20> Code(s): F29 - Unspecified psychosis not due to a substance or known physiological condition <Jaimee Almeida NP - Last Filed: 10/05/19 14:20> Status: Acute <Jaimee Almeida NP - Last Filed: 10/05/19 14:20> Assessment and Plan: IMPROVED. see plan for Schizoaffective disorder, acute on chronic PRN Haldol as needed. titrating psych and anti-anxiety medications as patient's behavior and status warrant. Monitoring CBC, CMP with K/Mag/PHos, Cardiac Panel, TSH, UA, Lactic, blood cultures, urine drug panel completed - stable and improved. CT head ordered <Jaimee Almeida NP - Last Filed: 10/05/19 14:20> (4) Menopausal symptoms: Onset Date: Unknown <Jaimee Almeida NP - Last Filed: 10/05/19 14:20> Code(s): N95.1 - Menopausal and female climacteric states <Jaimee Almeida NP - Last Filed: 10/05/19 14:20> Status: Acute <Jaimee Almeida NP - Last Filed: 10/05/19 14:20> Assessment and Plan: IMPROVING, CONTROLLED, RESOLVED at this time. noted on the first 1 to 2 days of admi
[2019-10-05 11:10] LABS: Lactic Acid 1.1 mmol/L (0.4-2.0)
[2019-10-05 11:18] LABS: Lactate Dehydrogenase 344 U/L (81-234)
[2019-10-05 11:21] LABS: Creatine Kinase 1661 U/L (26-192)
[2019-10-05 11:24] LABS: Valproic Acid 77.4 mg/L (50.0-100.0)
[2019-10-05 11:24] LABS: Valproic Acid 39.9 mg/L (50.0-100.0)
--- NOTE | 2019-10-05 11:25 | PC.NURSE ---
Patient given medication in peanut butter on a garaham cracker. Patient took medication with no issues. Patient very tearlful at present. Patient is to be transfered within the hour. Ativan given to help with agitation. Patient currently resting in bed with restraints on, loosened. Patient continue to have auditory and visual hallucinations.
--- NOTE | 2019-10-05 12:58 | PM.EVENT ---
Event Note Event Note Event Note: At 1:00 p.m. the patient agitated. Spoke with pharmacy. Patient does not have an IV. Will give Haldol 5 mg IM. If no response than olanzapine 5 mg IM. Depakote 1000 mg was given before IV pre because of the patient's agitation IV placed will be very difficult. Ambulance he is here preparing to transfer
[2019-10-05] MEDS: HALOPERIDOL LACTATE 5 MG/ML VIAL IM (13:00)
[2019-10-06 02:58] LABS: Hepatitis A Antibody IgM Nonreactive; Hepatitis B Core Antibody Nonreactive (Nonreactive); Hepatitis B Surface Antigen Nonreactive (Nonreactive); Hepatitis C Virus Antibody Nonreactive (Nonreactive)
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
== END 2019-10-05 14:00 | DRG 885 ==
LOC: CHSED 09-30 14:58 → CHS2ND 10-04 06:52
PROVIDERS: Emergency Medicine; Family Medicine; Nurse Practitioner; Admitting Provider Emergency Medicine; Emergency Provider Emergency Medicine; Visit Provider Emergency Medicine
DX: F25.9 Schizoaffective disorder, unspecified (principal); F02.81 Dementia in other diseases classified elsewhere, unspecified severity, with behavioral disturbance; G40.909 Epilepsy, unspecified, not intractable, without status epilepticus; F31.9 Bipolar disorder, unspecified; T79.6XXA Traumatic ischemia of muscle, initial encounter; F06.8 Other specified mental disorders due to known physiological condition; R73.03 Prediabetes; N95.1 Menopausal and female climacteric states
CPT/HCPCS: 36415; 51701; 80053; 80074; 80164; 80165; 80175; 80201; 80307; 81003; 81025; 82140; 82248; 82550; 82553; 83605; 83615; 83735; 84100; 84436; 84443; 84484; 85025; 85027; 87040; 93005; 96361; 96365; 96372; 96375; 96376; 99285; A9270; J1200; J1630; J1650; J2060; J2270; J3360; J7030; J7040

== ENCOUNTER 2020-12-16 00:32 | Emergency (ER) | payer MEDICARE, MEDICAID, SELFPAY ==
--- NOTE | ~2020-12-16 | XR_ITS ---
EXAMINATION: XR chest 1V portable EXAM DATE: 12/16/2020 01:48 INDICATION: seizure,ams,unresponsive/combative,incontinence . TECHNIQUE: Portable AP frontal chest x-ray was obtained. There is no prior study for comparison. FINDINGS: Small amount of ill-defined bilateral atelectasis or pneumonia. The lungs are otherwise ene ar. There are no pleural effusions. Cardiac silhouette is prominent but magnified on this AP techn ique. There is no pneumothorax suspected. The bones and soft tissues are unremarkable. IMPRESSION: Small amount of bilateral ill-defined atelectasis or pneumonia. Reviewed, dictated and finalized at location A.
--- NOTE | ~2020-12-16 | CT_ITS ---
EXAMINATION: CT brain wo con EXAM DATE: 12/16/2020 01:49 INDICATION: Seizure. Altered mental status. Unresponsive. Incontinence. TECHNIQUE: Spiral CT of the head was performed without contrast. Axial, coronal and sagittal images were reviewed. The dose-length product (DLP) for this examination was 1035.92 mGy-cm. The exposure was tailored according to patient size, and iterative reconstruction (ASIR) was used as additional do se reduction technique. Patient was scanned twice due to motion. FINDINGS: Study is limited due to patient motion. No evidence of acute intracranial hemorrhage, no si zable extra-axial collection. No obstructive no definite brain mass. Small left frontal sinus mucous retention cyst. Soft tissue is unremarkable. IMPRESSION: Limited exam. No definite acute findings. Reviewed, dictated and finalized at location A.
[2020-12-16 00:35] VITALS: BP 150/66; PULSE 85; RESP 19; TEMP 36.2; O2SAT 99
--- NOTE | 2020-12-16 00:40 | ED.SEIZURE ---
HPI - Seizure General Chief Complaint: Seizure Stated Complaint: SEIZURE ACTIVITY Time Seen by Provider: 12/16/20 00:32 Source: family and EMS Mode of arrival: EMS Limitations: altered mental status History of Present Illness HPI Narrative: 45-year-old woman with a history of seizures, hyponatremia and schizoaffective disorder brought to the emergency department by EMS after having had seizures this evening. Family states that they heard gurgling noise when in her room and found her on the floor with vomitus some blood in her mouth. She was minimally responsive (once looked at her mother) and had a tonic-clonic generalized seizure. They states that seizure lasted less than 5 minutes. It resolved spontaneously. And she had another seizure shortly thereafter that was also as brief period EMS also witnessed a 4 minutes seizure at the scene after their arrival. She has not recovered alertness since the onset of her seizures. She has had no recent illness, head injury, drug or alcohol use, or fever according to the family. She is on a 4 L per day fluid restriction and the family states that she drank approximately 8 L today. She took her usual medications today. complaint: seizure Onset (ago): hour(s) (3) Description of Episode: loss of consciousness and bowel incontinence Duration of episode: 5 Trauma: No Seizure History: Yes Place: home Possible Precipitating Event: other ( noncompliance with water restriction) Treatments prior to arrival: none Related Data Home Medications Medication Instructions Recorded Confirmed clonazepam 1 mg PO TID 09/29/19 12/16/20 ferrous sulfate 325 mg PO DAILY 09/29/19 12/16/20 lamotrigine 200 mg PO DAILY 09/29/19 12/16/20 metoprolol tartrate 25 mg PO BID 09/29/19 12/16/20 topiramate 50 mg PO BID 09/29/19 12/16/20 Allergies Allergy/AdvReac Type Severity Reaction Status Date / Time No Known Allergies Allergy Verified 09/30/19 00:41 Review of Systems Review of Systems: ROS unobtainable: Yes unobtainable due to mental status PMFSH Past Medical History Medical History Acetaminophen overdose Bipolar disorder Epilepsy Generalized seizure History of pineal cyst Partial seizure Prediabetes Seizure disorder (Unknown) Suicidal ideation Family History Family History (Updated 10/01/19 @ 15:31 by Jaimee Almeida NP) Mother Hypertension Father Diabetes mellitus Type 2, insulin dependent now Heart disease CABG x 3 in 1999 Neuropathy Agent orange exposure Sibling Diabetes mellitus Type I - childhood diagnosis Grandparent Ovarian cancer Grandparent , in her 90s Lewy body dementia Social History Social History Smoking status: Unknown if ever smoked Gender identity (if verbalized by the patient): Female Spiritual care concerns: No Exam Const: Nutritional Appearance: obese Limitations: altered mental status ( obtunded, opens eyes and localizes withdrawal to pain. GCS 8) HENMT: Head: normal to inspection Ears: external ears normal, TM's normal bilaterally and EAC's normal General nose exam: Normal nares present Face and sinus: normal facial exam Mouth: Yes moist mucous membranes Throat: posterior oropharynx normal Eyes: Conjunctivae: conjunctivae normal Other: pupil sluggish but reactive and consensual Resp: Effort & Inspection: normal respiratory effort Auscultation: rales bilateral and diffuse and rhonchi Cardio: Rate: regular rate Rhythm: regular rhythm Heart sounds: no murmurs GI: GI Palp: Yes Soft to palpation and No Tenderness to palpation present (GI) Skin: General skin exam: normal color, no jaundice and no pallor Rashes: no rashes Extrem: General: normal to inspection and no clubbing, cyanosis or edema Course Course Emergency Course: Discussed findings
[2020-12-16 01:05] VITALS: BP 140/88; PULSE 87; RESP 18; O2SAT 98
[2020-12-16 01:06] LABS: Base Excess ABG -6.3 mmol/L (0-2); HCO3 ABG 17.9 mmol/L (23-29); Oxygen Content ABG 18.4 %vol (16.0-22.0); Oxyhemoglobin 97.6 % (94-100); PCO2 ABG 31.8 mmHg (35-45); PO2 ABG 112.1 mmHg (80-90); Total Hemoglobin 13.3 g/dL; pH ABG 7.37 (7.35-7.45)
[2020-12-16 01:13] LABS: Device ROOM AIR; Modified Allen's Test Pass; Site Drawn LEFT RADIAL
[2020-12-16 01:18] LABS: Basophils Absolute Auto 0.02 K/mm3 (0.00-0.10); Basophils Percent Auto 0.1 % (0.0-1.0); Hematocrit 34.3 % (35.0-49.0); Hemoglobin 12.6 g/dL (12.0-15.0); Immature Granulocyte Absolute 0.08 K/mm3 (0.00-0.00); Immature Granulocyte Percent A 0.6 % (0.0-0.0); Lymphocytes Absolute Auto 0.76 K/mm3 (1.10-4.50); Lymphocytes Percent Auto 5.6 % (18.0-42.0); Mean Corpuscular HGB Conc 36.7 g/dL (32.0-36.0); Mean Corpuscular Hemoglobin 31.5 pg (27.0-31.0); Mean Corpuscular Volume 85.8 fL (78.0-102.0); Mean Platelet Volume 9.7 fl (9.2-11.8); Monocytes Absolute Auto 0.53 K/mm3 (0.10-0.90); Monocytes Percent Auto 3.9 % (2.0-11.0); Neutrophils Absolute Auto 12.3 K/mm3 (1.7-7.2); Neutrophils Percent Auto 89.8 % (50.0-70.0); Platelet Count Result 281 K/mm3 (150-420); Red Cell Distribution Width 10.8 % (11.6-14.4); White Blood Count 13.7 K/mm3 (4.8-10.8)
[2020-12-16 01:26] LABS: Add Urine Microscopic? YES; Appearance Urine Clear (Clear); Bilirubin Urine Negative (Negative); Blood Urine Negative (Negative); Color Urine Yellow (Yellow); Glucose Urine UA 1+ (Negative); Ketones Urine Negative (Negative); Leukocyte Esterase Ur Negative LEU/UL (Negative); Nitrate Urine Negative (Negative); Protein Urine Negative (Negative); Urobilinogen Urine 0.2 mg/dL (0.2-1.0)
[2020-12-16 01:27] LABS: INR 1.1; Partial Thromboplastin Time 31.6 SEC (23.90-30.70); Prothrombin Time 11.3 Seconds (9.50-12.10)
[2020-12-16 01:28] LABS: Alanine Aminotransferase 22 U/L (14-59); Albumin Level 3.5 g/dL (3.4-5.0); Alkaline Phosphatase 101 U/L (46-116); Ammonia 34 umol/L (11-32); Anion Gap 14 mmol/L (8-16); Aspartate Amino Transferase 27 U/L (15-37); Bilirubin,Total 0.6 mg/dL (0.00-1.00); Blood Urea Nitrogen 4 mg/dL (7-18); Calcium 8.1 mg/dL (8.5-10.1); Carbon Dioxide 17 mmol/L (21-32); Chloride 80 mmol/L (98-108); Creatine Kinase 996 U/L (26-192); Estimated Glomerular Filt Rate > 60; Ethanol 8 mg/dL (0-6); Glucose 140 mg/dL (70-99); Osmolality Calculated 230 mOsm/kg (285-295); Potassium 4.4 mmol/L (3.5-5.1); Salicylate 0.4 mg/dL (2.8-20.0); Total Protein 6.7 g/dL (6.4-8.2)
[2020-12-16 01:30] VITALS: BP 150/67; PULSE 80; RESP 16; TEMP 36.6; O2SAT 97
[2020-12-16 01:30] LABS: Acetaminophen < 2 ug/mL (10-30)
[2020-12-16 01:32] LABS: Amphetamine Screen Urine Negative (Negative); Barbiturate Screen Urine Negative (Negative); Benzodiazepines Screen Urine Negative (Negative); Cannabinoid Screen Urine Negative (Negative); Cocaine Screen Urine Negative (Negative); Methadone Screen Urine Negative (Negative); Opiate Screen Urine Negative (Negative); Phencyclidine Screen Urine Negative (Negative)
[2020-12-16 01:32] LABS: Sodium 111 mmol/L (136-145)
[2020-12-16 01:39] LABS: RBC Urine None seen /hpf (0-2); WBC Urine None seen /hpf (0-3)
[2020-12-16 01:43] LABS: Lactic Acid Reflex 6.2 mmol/L (0.4-2.0)
[2020-12-16] MEDS: LORazepam INJ (*CRX) 2 MG/ML VIAL 1 MG IV PUSH (01:45)
[2020-12-16 01:51] LABS: Magnesium 1.4 mg/dL (1.8-2.4); Phosphorus 1.4 mg/dL (2.6-4.7)
[2020-12-16 02:00] VITALS: BP 129/82; PULSE 82; RESP 16; O2SAT 96
[2020-12-16 02:02] LABS: SARS-CoV-2 Ag Negative (Negative)
--- NOTE | 2020-12-16 02:11 | PC.NURSE ---
patient able to pinch staff, during care. None verbal, speech garbled
[2020-12-16 04:10] LABS: Reflex Lactic Acid Yes or No Add Lactic
[2020-12-16 04:17] VITALS: BP 150/70; PULSE 78; RESP 16; TEMP 36.6; O2SAT 96
== END 2020-12-16 04:21 | disposition short-term general hospital (02) ==
PROVIDERS: Emergency Provider Emergency Medicine
DX: G40.909 Epilepsy, unspecified, not intractable, without status epilepticus (principal); E87.1 Hypo-osmolality and hyponatremia; R41.82 Altered mental status, unspecified; Z79.899 Other long term (current) drug therapy
CPT/HCPCS: 36415; 36600; 70450; 71045; 80053; 80307; 81001; 82140; 82550; 82805; 83605; 83735; 84100; 85025; 85610; 85730; 87040; 87086; 87426; 96365; 96375; 99285; C9803; J2060; J2543

== ENCOUNTER 2021-03-03 18:54 | Emergency (ER) | payer MEDICARE, MEDICAID, SELFPAY ==
[2021-03-03 19:33] VITALS: BP 172/113; PULSE 118; RESP 20; TEMP 37; O2SAT 97
[2021-03-03 20:06] LABS: Basophils Absolute Auto 0.02 K/mm3 (0.00-0.10); Basophils Percent Auto 0.2 % (0.0-1.0); Hematocrit 38.9 % (35.0-49.0); Hemoglobin 13.6 g/dL (12.0-15.0); Immature Granulocyte Absolute 0.05 K/mm3 (0.00-0.00); Immature Granulocyte Percent A 0.4 % (0.0-0.0); Lymphocytes Absolute Auto 0.99 K/mm3 (1.10-4.50); Lymphocytes Percent Auto 8.9 % (18.0-42.0); Mean Corpuscular Hemoglobin 31.1 pg (27.0-31.0); Mean Platelet Volume 9.4 fl (9.2-11.8); Monocytes Absolute Auto 0.59 K/mm3 (0.10-0.90); Monocytes Percent Auto 5.3 % (2.0-11.0); Neutrophils Absolute Auto 9.5 K/mm3 (1.7-7.2); Neutrophils Percent Auto 85.2 % (50.0-70.0); Platelet Count Result 267 K/mm3 (150-420); Red Blood Count 4.37 M/mm3 (4.20-5.40); Red Cell Distribution Width 11.7 % (11.6-14.4); White Blood Count 11.1 K/mm3 (4.8-10.8)
[2021-03-03 20:28] LABS: Alanine Aminotransferase 26 U/L (14-59); Albumin Level 4.1 g/dL (3.4-5.0); Alkaline Phosphatase 99 U/L (46-116); Anion Gap 15 mmol/L (8-16); Aspartate Amino Transferase 17 U/L (15-37); Bilirubin,Total 0.4 mg/dL (0.00-1.00); Blood Urea Nitrogen 14 mg/dL (7-18); Calcium 9.2 mg/dL (8.5-10.1); Carbon Dioxide 20 mmol/L (21-32); Chloride 97 mmol/L (98-108); Estimated CRCL calculation 78 ml/min; Estimated Glomerular Filt Rate > 60; Glucose 103 mg/dL (70-99); Osmolality Calculated 274 mOsm/kg (285-295); Potassium 4.7 mmol/L (3.5-5.1); Sodium 132 mmol/L (136-145); Thyroid Stimulating Hormone 1.87 uIU/mL (0.36-3.74); Total Protein 7.6 g/dL (6.4-8.2)
--- NOTE | 2021-03-03 20:32 | ED.ANXIETY ---
HPI - Anxiety General Chief Complaint: Anxiety Stated Complaint: over fluid intake Source: patient and family History of Present Illness HPI narrative: This is a 45-year-old female with a history of schizoaffective disorder anxiety and psychosis with a history of hyponatremia and is currently on a fluid-restricted diet, her fluid restriction is 4000 mL daily and the patient according to the mother increased her food intake over an 8hour. Eight thousand and is concerned about hyponatremia. Currently the patient is doing well no headache no blurry vision no nausea vomiting no abdominal pain no dysuria. complaint: anxiety Onset (ago): hour(s) Severity: mild Quality: intermittent Place: home History of similar episodes: Yes Provoking factors: none known Relieving factors: medication Associated symptoms: denies other symptoms Related Data Home Medications Medication Instructions Recorded Confirmed lamotrigine 200 mg PO DAILY 09/29/19 12/16/20 benztropine 0.5 mg PO BID 03/03/21 03/03/21 haloperidol 10 mg PO HS 03/03/21 03/03/21 lorazepam 1.5 mg PO QACBREAK PRN 03/03/21 03/03/21 lorazepam 2 mg PO HS 03/03/21 03/03/21 quetiapine See Rx Instructions .ROUTE .COMPLEX 03/03/21 03/03/21 Allergies Allergy/AdvReac Type Severity Reaction Status Date / Time No Known Allergies Allergy Verified 03/03/21 19:47 Review of Systems Review of Systems: All systems reviewed & are unremarkable except as noted in HPI and below PMFSH Past Medical History Medical History Acetaminophen overdose Bipolar disorder Epilepsy Generalized seizure History of pineal cyst Partial seizure Prediabetes Seizure disorder (Unknown) Suicidal ideation Family History Family History Mother Hypertension Father Diabetes mellitus Type 2, insulin dependent now Heart disease CABG x 3 in 1999 Neuropathy Agent orange exposure Sibling Diabetes mellitus Type I - childhood diagnosis Grandparent Ovarian cancer Grandparent , in her 90s Lewy body dementia Social History Social History Smoking status: Unknown if ever smoked Gender identity (if verbalized by the patient): Female Spiritual care concerns: No Exam Const: General: no acute distress and alert Orientation/consciousness: patient oriented x3 HENMT: Head: normal to inspection Eyes: Conjunctivae: conjunctivae normal Pupils: Equal, round and reactive pupils present EOM: EOMs intact bilaterally Resp: Effort & Inspection: normal respiratory effort Cardio: Rate: regular rate Rhythm: regular rhythm GI: GI Palp: Yes Soft to palpation Percussion: Yes normal to percussion Back/Spine/Pelvis: Back: no CVA tenderness Skin: General skin exam: normal color Rashes: no rashes Neuro: General: patient oriented x3 and moves all extremities Extrem: General: normal to inspection and no pedal edema Psych: Appearance: grossly normal Mental Status: mental status grossly normal Affect: normal affect Course Course Emergency Course: Reassessment of patient, patient is doing well resting comfortably labs reviewed with patient and family. Vital Signs Vital signs: Vital Signs Temperature 37.0 C 03/03/21 19:33 Pulse Rate 118 H 03/03/21 19:33 Respiratory Rate 20 03/03/21 19:33 Blood Pressure 172/113 H 03/03/21 19:33 Pulse Oximetry 97 03/03/21 19:33 Temperature 37.0 C 03/03/21 19:33 Pulse Rate 118 H 03/03/21 19:33 Respiratory Rate 20 03/03/21 19:33 Blood Pressure 172/113 H 03/03/21 19:33 Pulse Oximetry 97 03/03/21 19:33 MDM - Anxiety Lab Data Result diagrams: 03/03/21 20:01 03/03/21 20:01 Labs: Lab Results 03/03/21 03/03/21 Range/Units 20:01 20:01 WBC 11.1 H (4.8-10.
[2021-03-03 20:33] VITALS: BP 158/98; PULSE 115; RESP 20; TEMP 36.7; O2SAT 97
== END 2021-03-03 20:43 | disposition home or self-care (01) ==
PROVIDERS: Emergency Provider Emergency Medicine
DX: F41.9 Anxiety disorder, unspecified (principal); Z79.899 Other long term (current) drug therapy
CPT/HCPCS: 36415; 80053; 84443; 85025; 99282; 99283

== ENCOUNTER 2021-05-12 19:08 | Emergency (ER) | payer MEDICARE, MEDICAID, SELFPAY ==
--- NOTE | ~2021-05-12 | XR_ITS ---
EXAMINATION: XR chest 1V portable EXAM DATE: 05/12/2021 21:58 INDICATION: Nausea and vomiting TECHNIQUE: Portable AP frontal chest x-ray was obtained. Comparison is made to prior examination from 12/16/2020. FINDINGS: The lungs are clear. There are no pleural effusions. The cardiomediastinal silhouette is within normal limits. There is no pneumothorax suspected. The bones and soft tissues are unremarkab le. IMPRESSION: No acute cardiopulmonary findings. Reviewed, dictated and finalized at location A.
--- NOTE | ~2021-05-12 | CT_ITS ---
EXAMINATION: CT brain wo con EXAM DATE: 05/12/2021 21:58 INDICATION: Seizure activity. TECHNIQUE: Spiral CT of the head was performed without contrast. Axial, coronal and sagittal images were reviewed. The dose-length product (DLP) for this examination was 1362.00 mGy-cm. The exposure was tailored according to patient size, and iterative reconstruction (ASIR) was used as additional do se reduction technique. Comparison is made to prior examination from 12/16/2020. FINDINGS: Study is limited due to patient motion, patient was scanned twice. There is no acute intrap arenchymal hemorrhage. No evidence of intraparenchymal brain mass lesion. No evidence of acute infa rction. There is no mass effect or midline shift. The ventricles are normal in size. There are no extra-axial collections. There are no acute calvarial fractures. The orbits are unremarkable. Soft tissue is unremarkable. The visualized sinuses and mastoid air cells are well aerated. IMPRESSION: No Limited exam but no acute intracranial findings identified. Reviewed, dictated and finalized at location A.
[2021-05-12 19:10] VITALS: BP 133/88; PULSE 72; RESP 20; TEMP 35.7; O2SAT 100
--- NOTE | 2021-05-12 19:20 | ECG_ITS ---
Measurements Intervals [place] Rate: 75 P: 70 MI: 161 QRS: 53 QRSD: 80 T: 56 QT: 371 QTc: 415 Interpretive Statements SINUS RHYTHM ATRIAL PREMATURE COMPLEX BASELINE ARTIFACT- I, II, AVR, AVL, AVF, V1-V6 BORDERLINE ECG Electronically Signed On 05-14-2021 7:49:39 CDT by Ramu Zuluaga D.O.
[2021-05-12] MEDS: LORazepam INJ (*CRX) 2 MG/ML VIAL IV PUSH (19:26)
[2021-05-12 19:30] VITALS: PULSE 72
[2021-05-12] MEDS: ONDANSETRON INJ 4 MG/2 ML VIAL IV PUSH (19:35)
[2021-05-12 19:46] LABS: Basophils Absolute Auto 0.02 K/mm3 (0.00-0.10); Basophils Percent Auto 0.1 % (0.0-1.0); Hematocrit 32.4 % (35.0-49.0); Hemoglobin 11.8 g/dL (12.0-15.0); Immature Granulocyte Absolute 0.07 K/mm3 (0.00-0.00); Immature Granulocyte Percent A 0.5 % (0.0-0.0); Lymphocytes Absolute Auto 0.95 K/mm3 (1.10-4.50); Lymphocytes Percent Auto 6.6 % (18.0-42.0); Mean Corpuscular HGB Conc 36.4 g/dL (32.0-36.0); Mean Corpuscular Hemoglobin 31.3 pg (27.0-31.0); Mean Corpuscular Volume 85.9 fL (78.0-102.0); Mean Platelet Volume 9.5 fl (9.2-11.8); Monocytes Absolute Auto 0.55 K/mm3 (0.10-0.90); Monocytes Percent Auto 3.8 % (2.0-11.0); Neutrophils Absolute Auto 12.8 K/mm3 (1.7-7.2); Platelet Count Result 200 K/mm3 (150-420); Red Blood Count 3.77 M/mm3 (4.20-5.40); Red Cell Distribution Width 11.7 % (11.6-14.4); White Blood Count 14.4 K/mm3 (4.8-10.8)
[2021-05-12 20:02] LABS: Alanine Aminotransferase 29 U/L (14-59); Albumin Level 3.5 g/dL (3.4-5.0); Alkaline Phosphatase 91 U/L (46-116); Anion Gap 9 mmol/L (8-16); Aspartate Amino Transferase 25 U/L (15-37); Bilirubin,Total 0.8 mg/dL (0.00-1.00); Blood Urea Nitrogen 6 mg/dL (7-18); Calcium 7.3 mg/dL (8.5-10.1); Carbon Dioxide 23 mmol/L (21-32); Chloride 78 mmol/L (98-108); Estimated Glomerular Filt Rate > 60; Glucose 130 mg/dL (70-99); Osmolality Calculated 229 mOsm/kg (285-295); Total Protein 6.3 g/dL (6.4-8.2)
[2021-05-12 20:04] LABS: Sodium 110 mmol/L (136-145)
[2021-05-12 20:05] LABS: Creatine Kinase 309 U/L (26-192)
[2021-05-12 20:05] LABS: Ethanol < 3 mg/dL (0-6)
[2021-05-12] MEDS: SODIUM CHLORIDE 3% 500 ML 50 ML IV CONT (20:25)
--- NOTE | 2021-05-12 20:30 | PC.NURSE ---
Call placed to [facility] for ICU bed. Pts has neuro Drs. in [place], No beds available in [facility] or [facility]. Call placed to [facility] for transfer to ICU. Spoke to william Kidd and will await callback from
--- NOTE | 2021-05-12 20:53 | ED.SEIZURE ---
HPI - Seizure General Chief Complaint: Seizure Stated Complaint: unknown Source: patient, family and EMS Mode of arrival: EMS Limitations: altered mental status History of Present Illness HPI Narrative: this is a 45-year-old female that presents to the emergency department via EMS with altered mental status and short duration of seizure disorder that occurred earlier this afternoon, the patient appears to be postictal ictal with some history of seizures, history of primary polydipsia and history of psychosis with temporal lobe dementia, the patient apparently is on a fluid restriction and occasionally is attempted and drink some more fluid than usual. Apparently family states that she does drink more water at times than she should and today this was the case and she developed seizure activity according to her mother that lasted 10 to 15 seconds but subsequent and later on during the day the patient did develop an altered mental status an EMS was called. Patient's vital or stable she is incoherent but awake alert responsive but mumbling and not making any sense verbally. The patient O2 sats 100% did have an episode of vomiting, there is currently no fever or chills patient is afebrile with a stable blood pressure. Patient takes seizure medication is on a fluid restricted diet secondary to primary polydipsia history of psychosis. MD complaint: seizure Onset (ago): hour(s) Description of Episode: loss of consciousness and tonic-clonic movement -: second(s) Witnessed: Yes - by Bystander Trauma: No Seizure History: Yes Place: home Possible Precipitating Event: other ( hyponatremia) Associated symptoms: weakness Related Data Home Medications Medication Instructions Recorded Confirmed lamotrigine 300 mg PO DAILY 09/29/19 05/12/21 benztropine 0.5 mg PO BID 03/03/21 05/12/21 haloperidol 10 mg PO HS 03/03/21 05/12/21 lorazepam 1.5 mg PO BID 03/03/21 05/12/21 lorazepam 2 mg PO HS 03/03/21 05/12/21 quetiapine See Rx Instructions .ROUTE .COMPLEX 03/03/21 05/12/21 cholecalciferol (vitamin D3) 25 mcg PO DAILY 05/12/21 05/12/21 [Vitamin D3] Allergies Allergy/AdvReac Type Severity Reaction Status Date / Time carbamazepine [From Tegretol] Allergy Unknown Verified 05/12/21 19:52 olanzapine [From Zyprexa] Allergy Unknown Verified 05/12/21 19:53 trifluoperazine Allergy Unknown Verified 05/12/21 19:53 Review of Systems Review of Systems: All systems reviewed & are unremarkable except as noted in HPI and below PMFSH Past Medical History Medical History Acetaminophen overdose Bipolar disorder Epilepsy Generalized seizure History of pineal cyst Partial seizure Prediabetes Seizure disorder (Unknown) Suicidal ideation Family History Family History Mother Hypertension Father Diabetes mellitus Type 2, insulin dependent now Heart disease CABG x 3 in 1999 Neuropathy Agent orange exposure Sibling Diabetes mellitus Type I - childhood diagnosis Grandparent Ovarian cancer Grandparent , in her 90s Lewy body dementia Social History Social History Smoking status: Unknown if ever smoked Gender identity (if verbalized by the patient): Female Spiritual care concerns: No Exam Const: General: no acute distress and ill appearing Orientation/consciousness: confusion Limitations: altered mental status HENMT: Head: normal to inspection Eyes: Conjunctivae: conjunctivae normal Pupils: Equal, round and reactive pupils present Neck: Neck: normal visual inspection, no lymphadenopathy and no meningeal signs Chest: Chest palpation & inspection: normal inspection of the chest Resp: Effort & Inspection: normal respiratory effort Auscultation: clear to auscultation bilaterally Cardio: Rat
[2021-05-12 21:25] LABS: Sodium 116 mmol/L (136-145)
[2021-05-12] MEDS: SODIUM CHLORIDE 0.9% IV 1,000 ML 50 ML IV CONT (21:40)
[2021-05-12] MEDS: LORazepam INJ (*CRX) 2 MG/ML VIAL 1 MG IV PUSH ×2 (21:46→23:00)
--- NOTE | 2021-05-12 21:52 | PC.NURSE ---
Pt taken to Xray c assist of 3 staff and moved to table for head CT. Pt is incoherent and unable to follow commands. Pt keeps attempting to roll to Lt side and unable to comprehend any instructions given. Pt kept safe c pillows and padding to side rails. Monitor shows NSR, VSS at this time. ERP Dr Cordova spoke c folder and notcher Dr Ortega who accepts for transfer. Awaiting call back for bed placement.
[2021-05-12 22:40] VITALS: BP 140/94; PULSE 78; RESP 20; TEMP 35.7; O2SAT 99
--- NOTE | 2021-05-12 23:00 | PC.NURSE ---
Pt remains in incoherent state and unable to comprehend instructions. Pt loaded to [facility] cot for transfer.
== END 2021-05-12 23:14 | disposition short-term general hospital (02) ==
PROVIDERS: Emergency Provider Emergency Medicine
DX: E87.1 Hypo-osmolality and hyponatremia (principal); G40.909 Epilepsy, unspecified, not intractable, without status epilepticus
CPT/HCPCS: 36415; 70450; 71045; 80053; 80307; 82550; 84295; 85025; 93005; 96361; 96374; 96375; 96376; 99285; J2060; J2405; J7030; J7131

== ENCOUNTER 2021-05-13 01:18 | Inpatient (IN) | payer MEDICARE, MEDICAID, SELFPAY ==
[2021-05-13] VITALS (18 sets, daily range): BP systolic 137–160; BP diastolic 64–101; PULSE 85–103; RESP 12–21; TEMP 36.7–38.7; O2SAT 97–100; BMI 29.7
--- NOTE | ~2021-05-13 | XR_ITS ---
EXAMINATION: XR barium swallow modified EXAM DATE: 05/18/2021 13:31 INDICATION: Dysphagia. Seizure. TECHNIQUE: Modified barium esophagram was performed by speech pathologist with radiologist Dr. Rusty Mosher present to administered fluoroscopy. Speech pathologist administered barium in varying consis tencies as per speech pathologist documentation. This was recorded on tape. There was total fluorosc opic time of 1.2 minutes. The DAP for this procedure was 1.4 Gycm2. A total of 1 images sent to PAC S from the exam. FINDINGS: Oral stage: Adequate function. Pharyngeal phase: Sinus residual. Laryngeal penetration: None. Aspiration: None. Laryngeal sensitivity: Present. IMPRESSION: Patient tolerated oral feedings in the upright position. Please refer to speech patholo gist findings and specific feeding recommendations. Reviewed, dictated and finalized at location A. IMPRESSION: Patient tolerated oral feedings in the upright position. Please r efer to speech pathologist findings and specific feeding recommendations.
--- NOTE | ~2021-05-13 | XR_ITS ---
EXAMINATION: XR chest 1V portable EXAM DATE: 05/13/2021 05:47 INDICATION: AMS, Transient Alteration Of Awareness. TECHNIQUE: Portable AP frontal chest x-ray was obtained. Comparison is made to prior examination from 05/12/2021. FINDINGS: The lungs are clear. There are no pleural effusions. The cardiomediastinal silhouette is within normal limits. There is no pneumothorax suspected. The bones and soft tissues are unremarkab le. IMPRESSION: No acute cardiopulmonary findings. Reviewed, dictated and finalized at location A.
[2021-05-13] MEDS: HALOPERIDOL LACTATE 5 MG/ML VIAL IM ×2 (00:15)
--- NOTE | 2021-05-13 00:44 | PC.NURSE ---
Addendum entered by Yanira Jacobs RN 05/13/21 00:45: Patient arrived on 05/12/2021 at 2338. Original Note: This patient, aMrisa Deleon, was admitted to Intensive Care Unit-7 as a direct admit from [place]. Report received from Chastity SOLIS. Patient/family oriented to hospital policies and general routines including ID bracelet, bed and alarms, visiting hours, pain management, procedures, bathroom and other care routines, personal items, smoking policy, room service/diet, and visiting hours. Information on how to activate the Rapid Response Team has been discussed. Patient/Family are encouraged to report perceived risks to care and to ask questions if they do not understand what they are told or what they should do.
[2021-05-13 01:15] LABS: Sodium 121 mmol/L (137-145)
--- NOTE | 2021-05-13 01:17 | PM.IMHP ---
H&P: HPI History of Present Illness Date/Time: 05/13/21 01:17 Chief Complaint: Seizure Narrative: This is a 45-year-old female with past medical history significant for 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 Patient came as a transfer from [facility] where she was taken after she suffered a seizure at home upon arrival to emergency room status showed that her sodium was 110 patient was placed on 3% NS and decision was made to transfer the patient to our hospital for further management evaluation and treatment. At the time of my visit Marisa was in bed under restraints she was moving her legs and trying to sitting bed her eyes were closed and she was pronouncing unintelligible words. As per history that I gather from a emergency room doctor patient had been drinking large amounts of plain water and had a seizure she is known to have this problem before. Rest of workup has been and essentially nonrevealing. Review of Systems Review of Systems: ROS unobtainable: Yes unobtainable due to medical condition (Patient with frontotemporal dementia) and unobtainable due to mental status PMFSH Past Medical History Medical History Acetaminophen overdose Bipolar disorder Epilepsy Generalized seizure History of pineal cyst Partial seizure Prediabetes Seizure disorder (Unknown) Suicidal ideation Family History Family History Mother Hypertension Father Diabetes mellitus Type 2, insulin dependent now Heart disease CABG x 3 in 1999 Neuropathy Agent orange exposure Sibling Diabetes mellitus Type I - childhood diagnosis Grandparent Ovarian cancer Grandparent , in her 90s Lewy body dementia Social History Social History Smoking status: Unknown if ever smoked Alcohol intake: unknown Substance use: unknown Gender identity (if verbalized by the patient): Female Spiritual care concerns: No Meds Home Medications and Allergies Home Medications Medication Instructions Recorded Confirmed Type lamotrigine 300 mg PO DAILY 09/29/19 05/13/21 History benztropine 0.5 mg PO BID 03/03/21 05/13/21 History haloperidol 10 mg PO HS 03/03/21 05/13/21 History lorazepam 1.5 mg PO BID 03/03/21 05/13/21 History lorazepam 2 mg PO HS 03/03/21 05/13/21 History cholecalciferol (vitamin D3) 25 mcg PO BID 05/12/21 05/13/21 History [Vitamin D3] quetiapine 200 mg PO QAM 05/13/21 05/13/21 History quetiapine 300 mg PO QNOON 05/13/21 05/13/21 History quetiapine 400 mg PO HS 05/13/21 05/13/21 History Allergies Allergy/AdvReac Type Severity Reaction Status Date / Time carbamazepine [From Tegretol] Allergy Unknown Verified 05/12/21 19:52 olanzapine [From Zyprexa] Allergy Unknown Verified 05/12/21 19:53 trifluoperazine Allergy Unknown Verified 05/12/21 19:53 Exam Const: General: well developed and other (Delirious) Nutritional Appearance: average body habitus Orientation/consciousness: Other orientation findings (Delirious) HENMT: Head: normal to inspection, normocephalic and atraumatic Ears: hearing grossly normal bilaterally General nose exam: Normal external nose present Face and sinus: normal facial exam Mouth: Yes Normal oral and palatal mucosa present Eyes: General: appearance normal, both eyes and all related structures Alignment and Position: alignment normal Pupils: Equal, round and reactive pupils present and Dilated pupils bilaterally (4 mm) EOM: EOMs intact bilaterally Neck: Neck: normal visual inspection, full ROM, no lymphadenopathy, supple and no JVD Thyroid: thyroid normal Lymphatic: no lymphadenopathy noted Resp: Effort & Inspection: normal respiratory effort and able to speak in complete sentences Auscult
--- NOTE | 2021-05-13 01:20 | ECG_ITS ---
Measurements Intervals [place] Rate: 91 P: 69 MI: 141 QRS: 54 QRSD: 93 T: 48 QT: 372 QTc: 458 Interpretive Statements SINUS RHYTHM BASELINE ARTIFACT- I, II, III, AVR, AVL, AVF, V4-V6 NORMAL ECG Electronically Signed On 05-13-2021 7:38:02 CDT by Ramu Zuluaga D.O.
[2021-05-13] MEDS: DEXTROSE 5% IN WATER 500 ML 250 ML IV CONT ×2 (02:31→13:39)
[2021-05-13] MEDS: DESMOPRESSIN ACETATE 4 MCG/ML AMP 2 MCG IV PUSH ×3 (02:33→18:53)
[2021-05-13 04:58] LABS: Hematocrit 39.6 % (37.0-47.0); Hemoglobin 14.2 g/dL (12.0-15.0); Mean Corpuscular HGB Conc 35.9 g/dl (32-36); Mean Corpuscular Hemoglobin 31.7 pg (26-34); Mean Corpuscular Volume 88.4 fl (80-100); Mean Platelet Volume 9.9 fl (7.4-10.4); Platelet Count Result 239 k/mm3 (150-375); Red Blood Count 4.48 M/mm3 (4.2-5.4); White Blood Count 15.4 K/mm3 (4.5-10.0)
[2021-05-13 05:12] LABS: Anion Gap 10 mmol/L (8-16); Blood Urea Nitrogen 5 mg/dL (7-17); Calcium 9.1 mg/dL (8.4-10.2); Carbon Dioxide 22 mmol/L (22-30); Chloride 92 mmol/L (98-107); Estimated CRCL calculation 103 ml/min; Estimated Glomerular Filt Rate > 60; Glucose 154 mg/dL (65-110); Magnesium 1.9 mg/dL (1.6-2.3); Phosphorus 2.6 mg/dL (2.5-4.5); Potassium 4.2 mmol/L (3.4-5.0); Sodium 124 mmol/L (137-145)
[2021-05-13] MEDS: DEXTROSE 5% 250 ML IV CONT ×2 (05:49→09:56)
--- NOTE | 2021-05-13 06:42 | PM.CNNEP ---
Assessment and Plan Assessment and plan (1) Hyponatremia: Code(s): E87.1 - Hypo-osmolality and hyponatremia Status: Acute Assessment and Plan: the patient has severe hyponatremia. She had a seizure at home. In the chart there is a past history of seizures. It is unclear whether these are related to former episodes of hyponatremia or if she has just a primary seizure disorder. The patient did receive 3% saline in the emergency room because of the seizures. the amount of hypertonic saline should have just corrected her sodium by about 3. However the sodium corrected up to 116. The patient was making lots of urine when she came in. Fact that she overcorrected and was making lots of urine and has a history of psychogenic polydipsia suggest that this is another episode of the same. she still has mental status changes. It is very likely that the hyponatremia has been going on for a few days because it is difficult to drink enough fluid to overwhelm the kidneys capability of free water excretion and bring it down to 110 within just a day or 2. So I think it is safest to assume that this is not acute hyponatremia. Therefore we should not have the Sodium corrected by more than 8 per day. The patient has overcorrected. Most of this was spontaneous because of her urine osmolality due to the nature of this disorder. She has been given DDAVP and her urine output has decreased substantially. She is currently getting D5W to bring the sodium back down to about 116 are 117 and then we will proceed from there. The patient will get 3 hours of D5W at 3 mils per kg per hour and repeat the sodium level after that. the nurse will call me with the sodium level. (2) Encephalopathy due to metabolic factor or toxin: Status: Acute Assessment and Plan: Most likely due to the hyponatremia. CT brain was done at [facility]. The report is not back yet. Just looking at the images, there is a lot of motion artifact but there does not seem to be any major mass affect or bleeding. (3) Elevated creatine kinase level: Code(s): R74.8 - Abnormal levels of other serum enzymes Status: Acute Assessment and Plan: her CPK may be due to the seizure. Will repeat 1 later today and tomorrow. It is not high enough to cause any damage to the kidneys. (4) Dementia associated with other underlying disease with behavioral disturbance: Onset Date: Unknown Code(s): F02.81 - Dementia in other diseases classified elsewhere with behavioral disturbance Status: Acute Assessment and Plan: This is apparently unchanged (5) Schizo-affective schizophrenia, chronic condition with acute exacerbation: Onset Date: ~09/29/19 Code(s): F25.9 - Schizoaffective disorder, unspecified Status: Acute Assessment and Plan: she is on multiple medicines for this (6) Fever: Code(s): R50.9 - Fever, unspecified Status: Acute Assessment and Plan: the patient has a fever. Blood cultures were checked and she is on vancomycin plus Zosyn. Perhaps she aspirated. Will also check a urinalysis History of Present Illness Reason for Consult Consult date: 05/13/21 Chief Complaint Chief complaint: Hyponatremia History of Present Illness Narrative: Marisa is an unfortunate 47-year-old lady who has multiple medical problems including frontal temporal dementia, potomania, bipolar disorder, pre diabetes, seizure disorder, history of Tylenol overdose. Information was gleaned from the chart. The patient cannot give a history The patient has been in out of various hospitals due to hyponatremia. This is due to her psychogenic polydipsia. None of these admissions have been here at [place]. She typically goes to [facility] in [place]. The patient has been drinking a lot of water lately. she had a seizure at home on the day of admission and so EMS was called and she was t
[2021-05-13 08:25] LABS: Add Urine Microscopic? YES; Appearance Urine Clear (Clear); Bilirubin Urine Negative (Negative); Blood Urine Negative (Negative); Color Urine Yellow (Yellow); Glucose Urine UA 1+ mg/dL (Negative); Ketones Urine Negative (Negative); Leukocyte Esterase Ur Negative LEU/UL (NEGATIVE); Mucus Urine Rare /lpf; Nitrate Urine Negative (Negative); Protein Urine 1+ mg/dL (Negative); Specific Grav Ur 1.024 (1.001-1.035); Squamous Epithelial Cell Urine Rare /hpf (Few); Urobilinogen Urine Negative mg/dL (<2.0); WBC Urine 0-3 /hpf (0-3)
[2021-05-13 08:26] LABS: Creatinine Urine 104.7 mg/dL; Total Protein Urine Random 21 mg/dL
[2021-05-13 08:29] LABS: Sodium Urine Random 121 meq/L
[2021-05-13] MEDS: ENOXAPARIN 40 MG/0.4 ML SYRINGE SUB-Q (09:08)
[2021-05-13] MEDS: PANTOPRAZOLE SODIUM IV 40 MG VIAL IV PUSH (09:08)
[2021-05-13 09:39] LABS: Sodium 120 mmol/L (137-145)
--- NOTE | 2021-05-13 11:01 | PM.IMPN ---
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 Patient came as a transfer from [facility] where she was taken after she suffered a seizure at home upon arrival to emergency room status showed that her sodium was 110 patient was placed on 3% NS and decision was made to transfer the patient to our hospital for further management evaluation and treatment. At the time of my visit Marisa was in bed under restraints she was moving her legs and trying to sitting bed her eyes were closed and she was pronouncing unintelligible words. As per history that I gather from a emergency room doctor patient had been drinking large amounts of plain water and had a seizure she is known to have this problem before. Rest of workup has been and essentially nonrevealing. 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 Haldol p.r.n. for agitation or restlessness (4) Schizo-affective schizophrenia, chronic condition with acute exacerbation: Onset Date: ~09/29/19 Code(s): F25.9 - Schizoaffective disorder, unspecified Status: Acute Assessment and Plan: Likely brought up due to hyponatremia Patient was drinking copious amounts of plain water at home (5) Seizure disorder: Onset Date: Unknown Code(s): G40.909 - Epilepsy, unspecified, not intractable, without status epilepticus Status: Acute Assessment and Plan: Exacerbated by hyponatremia Received Ativan Seizure-free while at our facility Subjective Date/time seen: 05/13/21 11:01 Chief Complaint: Seizure Narrative: This is a 45-year-old female with past medical history significant for 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 Patient came as a transfer from [facility] where she was taken after she suffered a seizure at home upon arrival to emergency room status showed that her sodium was 110 patient was placed on 3% NS and decision was made to transfer the patient to our hospital for further management evaluation and treatment. At the time of my visit Marisa was in bed under restraints she was moving her legs and trying to sitting bed her eyes were closed and she was pronouncing unintelligible words. As per history that I gather from a emergency room doctor patient had been drinking large amounts of plain water and had a seizure she is known to have this problem before. Rest of workup has been and essentially nonrevealing. 05/13/2021 Interval history: patient with history recurrent hyponatremia
--- NOTE | 2021-05-13 11:09 | WPDCNINT ---
Assessment and Plan Assessment and plan (1) Hyponatremia: Code(s): E87.1 - Hypo-osmolality and hyponatremia Status: Acute Assessment and Plan: Patient with hyponatremia likely related to psychogenic polydipsia, according to the mother the patient drinks a lot of water daily basis and this has happened multiple times the past with having to be admitted to the hospital for hyponatremia -appreciate Nephrology following the patient -sodium levels trending up gradually -would like sodium levels to increase by 8-12 mEq in 24 hours -patient was also given DDAVP (2) Encephalopathy due to metabolic factor or toxin: Status: Acute Assessment and Plan: Encephalopathy could be related to sepsis, hyponatremia -CT scan of the brain did not show any acute intracranial processes (3) Seizure disorder: Onset Date: Unknown Code(s): G40.909 - Epilepsy, unspecified, not intractable, without status epilepticus Status: Acute Assessment and Plan: History of seizure disorders, patient on lamotrigine and Ativan 0 home -will start patient on Keppra IV, continue p.r.n. Ativan (4) Schizo-affective schizophrenia, chronic condition with acute exacerbation: Onset Date: ~09/29/19 Code(s): F25.9 - Schizoaffective disorder, unspecified Status: Acute Assessment and Plan: Patient on p.o. Seroquel which is currently on hold, will restart once patient is awake and able to take oral medications (5) Dementia associated with other underlying disease with behavioral disturbance: Onset Date: Unknown Code(s): F02.81 - Dementia in other diseases classified elsewhere with behavioral disturbance Status: Acute (6) Fever: Code(s): R50.9 - Fever, unspecified Status: Acute Assessment and Plan: Patient febrile, likely related to seizures, could be also related to aspiration pneumonitis -continue vancomycin and Zosyn Additional Plan Code status: Full code Critical care time spent: 41 minutes This dictation may have been done utilizing a voice recognition system. Attempts have been made to correct errors. However, there may be uncorrected grammatical, spelling, and recognition errors present. Due to a high probability of clinically significant, life threatening deterioration, the patient required my highest level of preparedness to intervene emergently and I personally spent this critical care time directly and personally managing the patient. This critical care time included obtaining a history; examining the patient; pulse oximetry; ordering and review of studies; arranging urgent treatment with development of a management plan; evaluation of patient's response to treatment; frequent reassessment; and discussions with other providers. It was exclusive of separately billable procedures and treating other patients and teaching time. Please see Assessment and Plan section and the rest of the note for further information on patient assessment and treatment Emergency Medical Service Manager Consult Note Consult date: 05/13/21 Time Seen: 06:54 Reason for consult: Severe acute hyponatremia, seizures HPI: Marisa Deleon is a 45 year old female with significant past medical history of bipolar disorder, seizures, hyponatremia, suicideal behavior, psychogenic polydipsia presented to the ED at [facility] after having seizures at home. Patient lives with her mother who stated that she has had seizures when she has low sodium levels and has been intubated to various hospitals for hyponatremia but none of these admissions have been here at [facility]. Typically goes to [facility] in [facility]. At the outside hospital was sodium was 110 and was given 3% saline, 200 mL. When she arrived to our ICU her sodium levels of 121 in a short amount of time it patient was given DDAVP on free water. Later the sodium levels increased to 124 was given another round of D5
[2021-05-13] MEDS: levETIRAcetam 1000MG/NACL100ML 1,000 MG/100 ML BAG 400 MG IVPB ×2 (12:18→21:38)
[2021-05-13 12:35] LABS: Creatine Kinase 1212 U/L (30-135); Sodium 119 mmol/L (137-145)
[2021-05-13] MEDS: LORazepam INJ (*CRX) 2 MG/ML VIAL 0.5 MG IV PUSH (13:05)
[2021-05-13 17:41] LABS: Sodium 124 mmol/L (137-145)
[2021-05-13] MEDS: DEXTROSE 5% 1,000 ML 1,000 ML 300 ML IV CONT (18:00)
[2021-05-13] MEDS: ONDANSETRON INJ 4 MG/2 ML VIAL IV PUSH (20:48)
[2021-05-13] MEDS: SALINE LOCK FLUSH 10 ML IV PUSH (21:46)
[2021-05-13 23:15] LABS: Sodium 113 mmol/L (137-145)
[2021-05-14] VITALS (15 sets, daily range): BP systolic 134–159; BP diastolic 67–110; PULSE 58–89; RESP 14–23; TEMP 36.6–37.1; O2SAT 97–100
[2021-05-14 00:26] LABS: Sodium 113 mmol/L (137-145)
[2021-05-14] MEDS: DESMOPRESSIN ACETATE 4 MCG/ML AMP 2 MCG IV PUSH ×4 (00:54→17:29)
[2021-05-14] MEDS: SODIUM CHLORIDE 3% 150 ML 50 ML IV CONT (01:13)
[2021-05-14 05:25] LABS: Hematocrit 31.4 % (37.0-47.0); Hemoglobin 11.8 g/dL (12.0-15.0); Mean Corpuscular HGB Conc 37.6 g/dl (32-36); Mean Corpuscular Hemoglobin 31.5 pg (26-34); Mean Corpuscular Volume 83.7 fl (80-100); Mean Platelet Volume 9.7 fl (7.4-10.4); Platelet Count Result 268 k/mm3 (150-375); Red Blood Count 3.75 M/mm3 (4.2-5.4); Red Cell Distribution Width 11.9 % (11.5-14.5); White Blood Count 10.3 K/mm3 (4.5-10.0)
[2021-05-14] MEDS: ONDANSETRON INJ 4 MG/2 ML VIAL IV PUSH ×2 (05:25→19:47)
[2021-05-14] MEDS: SALINE LOCK FLUSH 10 ML IV PUSH ×3 (05:28→21:53)
[2021-05-14 05:51] LABS: Lactic Acid Reflex 0.8 mmol/L (0.7-2.1)
[2021-05-14 06:19] LABS: Albumin Level 3.8 g/dL (3.5-5.1); Anion Gap 8 mmol/L (8-16); Blood Urea Nitrogen 3 mg/dL (7-17); Calcium 8.5 mg/dL (8.4-10.2); Carbon Dioxide 24 mmol/L (22-30); Chloride 83 mmol/L (98-107); Creatine Kinase 1368 U/L (30-135); Estimated CRCL calculation 121 ml/min; Estimated Glomerular Filt Rate > 60; Glucose 150 mg/dL (65-110); Magnesium 1.4 mg/dL (1.6-2.3); Phosphorus 1.9 mg/dL (2.5-4.5); Potassium 3.3 mmol/L (3.4-5.0); Sodium 115 mmol/L (137-145)
[2021-05-14] MEDS: levETIRAcetam 1000MG/NACL100ML 1,000 MG/100 ML BAG 400 MG IVPB ×2 (07:41→21:55)
[2021-05-14] MEDS: PANTOPRAZOLE SODIUM IV 40 MG VIAL IV PUSH (07:44)
[2021-05-14] MEDS: ENOXAPARIN 40 MG/0.4 ML SYRINGE SUB-Q (07:44)
[2021-05-14 08:41] LABS: Sodium 113 mmol/L (137-145)
[2021-05-14] MEDS: SODIUM CHLORIDE 3% 500 ML 70 ML IV CONT (09:17)
[2021-05-14 12:37] LABS: Sodium 122 mmol/L (137-145)
--- NOTE | 2021-05-14 13:30 | WPDINTPN ---
Progress Note: A&P Assessment and Plan (1) Hyponatremia: Code(s): E87.1 - Hypo-osmolality and hyponatremia Status: Acute Assessment and Plan: Patient with hyponatremia likely related to psychogenic polydipsia, according to the mother the patient drinks a lot of water daily basis and this has happened multiple times the past with having to be admitted to the hospital for hyponatremia -appreciate Nephrology following the patien monitoring and managing the sodium levels -sodium levels trending up gradually -would like sodium levels to increase by 8 mEq in 24 hours -patient on DDAVP -patient being given 3% saline today (2) Encephalopathy due to metabolic factor or toxin: Status: Acute Assessment and Plan: Encephalopathy could be related to sepsis, hyponatremia -CT scan of the brain did not show any acute intracranial processes (3) Seizure disorder: Onset Date: Unknown Code(s): G40.909 - Epilepsy, unspecified, not intractable, without status epilepticus Status: Acute Assessment and Plan: History of seizure disorders, patient on lamotrigine and Ativan 0 home -will start patient on Keppra IV, continue p.r.n. Ativan (4) Schizo-affective schizophrenia, chronic condition with acute exacerbation: Onset Date: ~09/29/19 Code(s): F25.9 - Schizoaffective disorder, unspecified Status: Acute Assessment and Plan: Patient on p.o. Seroquel which is currently on hold, will restart once patient is awake and able to take oral medications (5) Dementia associated with other underlying disease with behavioral disturbance: Onset Date: Unknown Code(s): F02.81 - Dementia in other diseases classified elsewhere with behavioral disturbance Status: Acute (6) Fever: Code(s): R50.9 - Fever, unspecified Status: Acute Assessment and Plan: Patient febrile, likely related to seizures, could be also related to aspiration pneumonitis -continue vancomycin and Zosyn -05/13/2021: Blood cultures x2 negative Additional Plan Code status: Full code Critical care time spent: 32 minutes This dictation may have been done utilizing a voice recognition system. Attempts have been made to correct errors. However, there may be uncorrected grammatical, spelling, and recognition errors present. Due to a high probability of clinically significant, life threatening deterioration, the patient required my highest level of preparedness to intervene emergently and I personally spent this critical care time directly and personally managing the patient. This critical care time included obtaining a history; examining the patient; pulse oximetry; ordering and review of studies; arranging urgent treatment with development of a management plan; evaluation of patient's response to treatment; frequent reassessment; and discussions with other providers. It was exclusive of separately billable procedures and treating other patients and teaching time. Please see Assessment and Plan section and the rest of the note for further information on patient assessment and treatment Subjective Date/time seen: 05/14/21 13:30 Interval history: Reason for consult: Severe acute hyponatremia, seizures 05/14/2021: Patient seen and examined the ICU, opens her eyes, is awake but confused, does not answer questions, moves all extremities spontaneously patient is hemodynamically stable, on room air with good O2 sats, urine output has been adequate, afebrile. White count is down. Sodium levels increased yesterday but patient was given D5 water as the rate of increase of sodium was high. Nephrology is managing the sodium levels Review of Systems Review of Systems: ROS unobtainable: Yes unobtainable due to medical condition and unobtainable due to mental status Exam Const: General: no acute distress and uncomfortable HENMT: Mouth: Yes moist mucous membranes Eyes: Sclera: sclerae normal Pupils: Eq
--- NOTE | 2021-05-14 14:08 | PM.PNNEP ---
Progress Note: A&P Assessment and Plan (1) Hyponatremia: Code(s): E87.1 - Hypo-osmolality and hyponatremia Status: Acute Assessment and Plan: the patient has severe hyponatremia. This is psychogenic polydipsia. This auto corrected too quickly. So she was given DDAVP and D5W. she still continued to correct in spite of D5W infusion but then suddenly her sodium went down to 113. This was repeated and still was 113 so she was given a small amount of 3% saline to get her up to the goal level of 116. This morning her sodium dropped to 113 again so she is being given some hypertonic saline. She had a seizure at home. She is getting Keppra. discussed with Dr. Ortega (2) Encephalopathy due to metabolic factor or toxin: Status: Acute Assessment and Plan: Most likely due to the hyponatremia. CT brain was done at [facility]. Limited exam but no acute intracranial findings identified. (3) Elevated creatine kinase level: Code(s): R74.8 - Abnormal levels of other serum enzymes Status: Acute Assessment and Plan: her CPK may be due to the seizure. CK a little bit higher. (4) Dementia associated with other underlying disease with behavioral disturbance: Onset Date: Unknown Code(s): F02.81 - Dementia in other diseases classified elsewhere with behavioral disturbance Status: Acute Assessment and Plan: This is apparently unchanged (5) Schizo-affective schizophrenia, chronic condition with acute exacerbation: Onset Date: ~09/29/19 Code(s): F25.9 - Schizoaffective disorder, unspecified Status: Acute Assessment and Plan: she is on multiple medicines for this (6) Fever: Code(s): R50.9 - Fever, unspecified Status: Acute Assessment and Plan: the patient has a fever. Blood cultures are negative. on antibiotics Subjective Date/time seen: 05/14/21 14:08 Interval history: Roxi is resting comfortably. Not quite is agitated. She opens her eyes when I call her name and she fix it is a little bit on some objects in the room but does not answer questions or follow commands. Exam Narrative: WDWN in NAD skin no rash head ncat lungs clear cor reg no rub abd BS+ nontender and soft ext no edema. Objective Data Vital Signs Vital Signs: Vital Signs - 24 hr 05/13/21 16:00 05/13/21 18:00 05/13/21 20:00 Temperature 37.2 C 37.2 C Pulse Rate 96 99 85 Respiratory Rate 16 12 18 Blood Pressure 156/98 H 153/82 H 160/87 H Pulse Oximetry 100 97 99 05/13/21 22:00 05/14/21 00:00 05/14/21 02:00 Temperature 36.6 C Pulse Rate 90 89 62 Respiratory Rate 16 14 16 Blood Pressure 148/81 H 149/67 H 134/87 Pulse Oximetry 99 98 99 05/14/21 04:00 05/14/21 06:00 05/14/21 07:36 Temperature 36.6 C Pulse Rate 84 76 79 Respiratory Rate 16 16 16 Blood Pressure 146/93 H 150/90 H Pulse Oximetry 99 99 99 05/14/21 08:00 05/14/21 10:00 05/14/21 11:17 Temperature 36.8 C Pulse Rate 78 77 75 Respiratory Rate 23 H 23 H 15 Blood Pressure 157/110 H 152/103 H Pulse Oximetry 97 99 99 05/14/21 12:00 05/14/21 14:00 Temperature 36.9 C Pulse Rate 74 66 Respiratory Rate 16 15 Blood Pressure 151/106 H 159/103 H Pulse Oximetry 99 100 Intake/Output Intake/Output: Intake & Output 05/11/21 05/12/21 05/13/21 05/14/21 23:59 23:59 23:59 23:59 Intake Total 4250 560 Output Total 4300 750 Balance -50 -190 Meds/Results Medications: Active Medications Generic Name Dose Route Start Last Admin Trade Name Ze PRN Reason Stop Dose Admin Benztropine Mesylate 0.5 mg 05/13/21 09:00 05/13/21 11:25 Benztropine Mesylate 0.5 Mg Tablet PO Not Given BID MILLIE Desmopressin Acetate 2 mcg 05/13/21 18:00 05/14/21 12:17 Desmopressin Acetate 4 Mcg/Ml Amp IV PUSH 2 mcg Q6HR MILLIE Administration Enoxaparin Sodium 40 mg 05/13/21 09:00 05/14/21 07:44 Enoxaparin 40 Mg/0.
[2021-05-14 16:50] LABS: Sodium 117 mmol/L (137-145); Vancomycin Trough 5.4 ug/mL (10.0-20.0)
[2021-05-14 18:50] LABS: Sodium 118 mmol/L (137-145)
[2021-05-14] MEDS: SODIUM CHLORIDE 3% 70 ML IV CONT (19:27)
[2021-05-14 22:49] LABS: Sodium 119 mmol/L (137-145)
--- NOTE | 2021-05-14 23:17 | PC.NURSE ---
[id number] rodgers regarding Na level. orders received.
[2021-05-14] MEDS: DESMOPRESSIN ACETATE 4 MCG/ML AMP 1 MCG IV PUSH (23:59)
[2021-05-15] VITALS (13 sets, daily range): BP systolic 145–166; BP diastolic 91–104; PULSE 56–97; RESP 14–21; TEMP 36.6–37.2; O2SAT 99–100; BMI 28.8
[2021-05-15 04:59] LABS: Hematocrit 34.5 % (37.0-47.0); Hemoglobin 12.8 g/dL (12.0-15.0); Mean Corpuscular HGB Conc 37.1 g/dl (32-36); Mean Corpuscular Volume 86.3 fl (80-100); Mean Platelet Volume 9.3 fl (7.4-10.4); Platelet Count Result 224 k/mm3 (150-375); Red Cell Distribution Width 11.9 % (11.5-14.5); White Blood Count 13.5 K/mm3 (4.5-10.0)
[2021-05-15] MEDS: DESMOPRESSIN ACETATE 4 MCG/ML AMP 1 MCG IV PUSH ×4 (05:18→23:30)
[2021-05-15] MEDS: SALINE LOCK FLUSH 10 ML IV PUSH ×3 (05:18→21:30)
[2021-05-15 05:47] LABS: Anion Gap 9 mmol/L (8-16); Blood Urea Nitrogen 5 mg/dL (7-17); Calcium 8.8 mg/dL (8.4-10.2); Carbon Dioxide 23 mmol/L (22-30); Chloride 88 mmol/L (98-107); Creatine Kinase 1510 U/L (30-135); Estimated CRCL calculation 80 ml/min; Estimated Glomerular Filt Rate > 60; Glucose 102 mg/dL (65-110); Magnesium 1.7 mg/dL (1.6-2.3); Phosphorus 2.7 mg/dL (2.5-4.5); Potassium 3.3 mmol/L (3.4-5.0); Sodium 120 mmol/L (137-145)
[2021-05-15] MEDS: levETIRAcetam 1000MG/NACL100ML 1,000 MG/100 ML BAG 400 MG IVPB ×2 (08:35→21:28)
[2021-05-15] MEDS: PANTOPRAZOLE SODIUM IV 40 MG VIAL IV PUSH (08:36)
[2021-05-15] MEDS: ENOXAPARIN 40 MG/0.4 ML SYRINGE SUB-Q (08:36)
--- NOTE | 2021-05-15 09:34 | WPDINTPN ---
Progress Note: A&P Assessment and Plan (1) Encephalopathy due to metabolic factor or toxin: Status: Acute Assessment and Plan: Encephalopathy could be related to sepsis, hyponatremia -CT scan of the brain did not show any acute intracranial processes -she is improving slowly. I am not sure what is her baseline is but she is awake alert and follows commands. She is not oriented but does answer questions seems to be improvement over her presentation. -in light of improvement will hold further imaging and testing at this point and continue to monitor. -avoid sedatives (2) Hyponatremia: Code(s): E87.1 - Hypo-osmolality and hyponatremia Status: Acute Assessment and Plan: Patient with hyponatremia likely related to psychogenic polydipsia, according to the mother the patient drinks a lot of water daily basis and this has happened multiple times the past with having to be admitted to the hospital for hyponatremia -appreciate Nephrology following the patient and monitoring and managing the sodium levels -sodium levels trending up gradually -patient on DDAVP -patient being given 3% saline today (3) Seizure disorder: Onset Date: Unknown Code(s): G40.909 - Epilepsy, unspecified, not intractable, without status epilepticus Status: Acute Assessment and Plan: History of seizure disorders, patient on lamotrigine and Ativan at home -continue Keppra IV, continue p.r.n. Ativan -will resume lamotrigine (4) Schizo-affective schizophrenia, chronic condition with acute exacerbation: Onset Date: ~09/29/19 Code(s): F25.9 - Schizoaffective disorder, unspecified Status: Acute Assessment and Plan: Patient on p.o. Seroquel which is currently on hold, will restart (5) Dementia associated with other underlying disease with behavioral disturbance: Onset Date: Unknown Code(s): F02.81 - Dementia in other diseases classified elsewhere with behavioral disturbance Status: Acute (6) Fever: Code(s): R50.9 - Fever, unspecified Status: Acute Assessment and Plan: Patient febrile, likely related to seizures, could be also related to aspiration pneumonitis -05/13/2021: Blood cultures x2 negative -DC vancomycin but continue Zosyn at this time (7) Electrolyte abnormality: Code(s): E87.8 - Other disorders of electrolyte and fluid balance, not elsewhere classified Status: Acute Assessment and Plan: Replace low potassium (8) Elevated creatine kinase level: Code(s): R74.8 - Abnormal levels of other serum enzymes Status: Acute Assessment and Plan: Patient has mild rhabdomyolysis on presentation which could be from seizures and hyponatremia Fluid management has been conservative due to hyponatremia to avoid significant shift since sodium Monitor renal function Additional Plan Code status: Full code DVT prophylaxis -Lovenox subQ Critical care time spent: 30 minutes This dictation may have been done utilizing a voice recognition system. Attempts have been made to correct errors. However, there may be uncorrected grammatical, spelling, and recognition errors present. Due to a high probability of clinically significant, life threatening deterioration, the patient required my highest level of preparedness to intervene emergently and I personally spent this critical care time directly and personally managing the patient. This critical care time included obtaining a history; examining the patient; pulse oximetry; ordering and review of studies; arranging urgent treatment with development of a management plan; evaluation of patient's response to treatment; frequent reassessment; and discussions with other providers. It was exclusive of separately billable procedures and treating other patients and teaching time. Please see Assessment and Plan section and the rest of the note for further information on patient assessment and treat
--- NOTE | 2021-05-15 09:45 | PM.PNNEP ---
Progress Note: A&P Assessment and Plan (1) Hyponatremia: Code(s): E87.1 - Hypo-osmolality and hyponatremia Status: Acute Assessment and Plan: the patient has severe hyponatremia. This is psychogenic polydipsia. Early on had auto correction so placed on DDAVP. In last 24hours things have settled down. Sodium level was in the high teens for the last 24hours. So I am giving 3% saline him to bring the sodium level up to the low 120s. Sodium level 120 today repeat this at noon after the 3% saline (2) Encephalopathy due to metabolic factor or toxin: Status: Acute Assessment and Plan: Most likely due to the hyponatremia. CT brain was done at [place]. Limited exam but no acute intracranial findings identified. (3) Elevated creatine kinase level: Code(s): R74.8 - Abnormal levels of other serum enzymes Status: Acute Assessment and Plan: her CPK angelica again slightly. UA showed no blood (4) Dementia associated with other underlying disease with behavioral disturbance: Onset Date: Unknown Code(s): F02.81 - Dementia in other diseases classified elsewhere with behavioral disturbance Status: Acute Assessment and Plan: This is apparently unchanged (5) Schizo-affective schizophrenia, chronic condition with acute exacerbation: Onset Date: ~09/29/19 Code(s): F25.9 - Schizoaffective disorder, unspecified Status: Acute Assessment and Plan: she is on multiple medicines for this (6) Fever: Code(s): R50.9 - Fever, unspecified Status: Acute Assessment and Plan: the patient had a fever. Blood cultures are negative. on antibiotics no fevers the last 48 hours Subjective Date/time seen: 05/15/21 09:45 Interval history: Roxi is resting comfortably. Calmer. Her glasses are on. She maintains eye contact and answers some question but speech is somewhat garbled. Exam Narrative: WDWN in NAD skin no rash head ncat lungs clear bilaterally cor reg no rub or gallop abd BS+ nontender and soft ext no edema. Objective Data Vital Signs Vital Signs: Vital Signs - 24 hr 05/14/21 10:00 05/14/21 11:17 05/14/21 12:00 Temperature 36.9 C Pulse Rate 77 75 74 Respiratory Rate 23 H 15 16 Blood Pressure 152/103 H 151/106 H Pulse Oximetry 99 99 99 05/14/21 14:00 05/14/21 15:09 05/14/21 16:00 Temperature 37.1 C Pulse Rate 66 74 72 Respiratory Rate 15 19 14 Blood Pressure 159/103 H 155/99 H Pulse Oximetry 100 100 100 05/14/21 18:00 05/14/21 20:00 05/14/21 22:00 Temperature 36.9 C Pulse Rate 65 74 72 Respiratory Rate 20 18 16 Blood Pressure 156/98 H 153/96 H 155/100 H Pulse Oximetry 100 100 100 05/15/21 00:00 05/15/21 02:00 05/15/21 04:00 Temperature 36.9 C 36.6 C Pulse Rate 71 70 72 Respiratory Rate 18 18 16 Blood Pressure 147/94 H 159/97 H 154/102 H Pulse Oximetry 100 100 100 05/15/21 06:00 05/15/21 08:00 Temperature 36.7 C 37.2 C Pulse Rate 56 L 68 Respiratory Rate 14 18 Blood Pressure 149/99 H 153/103 H Pulse Oximetry 100 100 Intake/Output Intake/Output: Intake & Output 05/12/21 05/13/21 05/14/21 05/15/21 23:59 23:59 23:59 23:59 Intake Total 4250 1210 550 Output Total 4300 1950 1250 Balance -50 740 -700 Meds/Results Medications: Active Medications Generic Name Dose Route Start Last Admin Trade Name Freq PRN Reason Stop Dose Admin Benztropine Mesylate 0.5 mg 05/13/21 09:00 05/13/21 11:25 Benztropine Mesylate 0.5 Mg Tablet PO Not Given BID MILLIE Desmopressin Acetate 1 mcg 05/15/21 00:00 05/15/21 08:36 Desmopressin Acetate 4 Mcg/Ml Amp IV PUSH 1 mcg Q6HR MILLIE Administration Enoxaparin Sodium 40 mg 05/13/21 09:00 05/15/21 08:36 Enoxaparin 40 Mg/0.4 Ml Syringe SUB-Q 40 mg DAILY MILLIE Administration Haloperidol 10 mg 05/13/21 21:00 Haloperidol 5 Mg Tablet PO 06/12/21 20:59 HS MILLIE Piperacillin/
[2021-05-15] MEDS: MAGNESIUM SULF 2 GM/WATER 50ML 2 GM/50 ML BAG IVPB (11:01)
[2021-05-15 11:21] LABS: Sodium 126 mmol/L (137-145)
--- NOTE | 2021-05-15 12:50 | PCSTNOTE ---
Please refer to the Bedside Swallow Evaluation in the EMR. Please note, silent aspiration cannot be ruled out at bedside.
[2021-05-15] MEDS: POTASSIUM CHLORIDE 20 MEQ PACKET (FOR LIQUID) 40 MEQ PO (13:55)
--- NOTE | 2021-05-15 16:59 | PM.IMPN ---
Progress Note: A&P Assessment and Plan (1) Acute hyponatremia: Code(s): E87.1 - Hypo-osmolality and hyponatremia Status: Acute (2) Encephalopathy due to metabolic factor or toxin: Status: Acute (3) History of epilepsy: Code(s): Z86.69 - Personal history of other diseases of the nervous system and sense organs Status: Acute (4) Rhabdomyolysis: Qualifiers: Rhabdomyolysis type: traumatic Encounter type: initial encounter Qualified Code(s): T79.6XXA - Traumatic ischemia of muscle, initial encounter Code(s): M62.82 - Rhabdomyolysis Status: Acute (5) Dementia associated with other underlying disease with behavioral disturbance: Onset Date: Unknown Code(s): F02.81 - Dementia in other diseases classified elsewhere with behavioral disturbance Status: Acute (6) Schizo-affective schizophrenia, chronic condition with acute exacerbation: Onset Date: ~09/29/19 Code(s): F25.9 - Schizoaffective disorder, unspecified Status: Acute (7) Seizure disorder: Onset Date: Unknown Code(s): G40.909 - Epilepsy, unspecified, not intractable, without status epilepticus Status: Acute (8) Psychogenic polydipsia: Code(s): R63.1 - Polydipsia; F54 - Psychological and behavioral factors associated with disorders or diseases classified elsewhere Status: Acute (9) Leukocytosis: Qualifiers: Leukocytosis type: unspecified Qualified Code(s): D72.829 - Elevated white blood cell count, unspecified Code(s): D72.829 - Elevated white blood cell count, unspecified Status: Acute (10) Fever: Qualifiers: Fever type: unspecified Qualified Code(s): R50.9 - Fever, unspecified Code(s): R50.9 - Fever, unspecified Status: Acute Additional Plan 1. Acute hyponatremia: -presented with acute hyponatremia secondary to psychogenic polydipsia -initially received 3% saline, however then Na was noted to have corrected rather too fast and hence patent received D5 at that time. She later continued to require another dose of 3% saline - She is currently on DDAVP for hyponatremia management as per Nephrology recommendation - today her Na level is better and appropriately corrected to 120 - nephrology recommendations are appreciated 2. Episode of fever: - was started on Vanc and Zosyn and is now continued with Zosyn monotherapy due to concerns with aspiration pneumonia - CXR is stable at this time however would likely be repeated regularly to monitor for changes 3. Rhabdomyolysis: - possibly sec to seizures - continue to monitor - unable to liberalize IV fluids or free water at this time 4. Polyuria: - noted after Na was started to be corrected; concluded ti be secondary to possibly free water diuresis - Nephrology following - less likely DI, however is receiving DDAVP Time Spent With Patient Time with patient: 15 - 25 minutes Subjective Date/time seen: 05/15/21 16:59 Interval history: 45-year-old female with past medical history significant for temporal lobe seizures, psychogenic polydipsia, bipolar disorder, some concerning history of frontotemporal dementia presented with complains of seizures and altered mental status. Patient was managed for seizures secondary to hyponatremia, given sodium levels of 110 on arrival. Patient is being followed by Nephrology and is currently being managed in the ICU. Her sodium level is noted to be finally correcting gradually and today it is noted to be 120. She is also noted to have rhabdomyolysis with CK level was elevated to 1500. Some moderate WBC elevation is noted as well. Review of Systems Review of Systems: A 10 point review of systems conducted was otherwise negative Exam Narrative: General: no acute distress and uncomfortable Mouth: Yes moist mucous membranes Eyes: pupils Equal, round and reactive pupils present Neck: supple Lungs: clear to auscultation sina
[2021-05-15 17:22] LABS: Sodium 127 mmol/L (137-145)
[2021-05-15] MEDS: ONDANSETRON INJ 4 MG/2 ML VIAL IV PUSH (21:36)
[2021-05-15 22:48] LABS: Sodium 129 mmol/L (137-145)
[2021-05-16] VITALS (15 sets, daily range): BP systolic 115–170; BP diastolic 85–106; PULSE 56–108; RESP 14–21; TEMP 36.8–37.1; O2SAT 98–100
[2021-05-16] MEDS: DESMOPRESSIN ACETATE 4 MCG/ML AMP 1 MCG IV PUSH ×3 (05:01→17:00)
[2021-05-16] MEDS: SALINE LOCK FLUSH 10 ML IV PUSH ×3 (05:01→20:21)
[2021-05-16 05:02] LABS: Hematocrit 34.3 % (37.0-47.0); Hemoglobin 12.6 g/dL (12.0-15.0); Mean Corpuscular HGB Conc 36.7 g/dl (32-36); Mean Corpuscular Hemoglobin 32.4 pg (26-34); Mean Corpuscular Volume 88.2 fl (80-100); Mean Platelet Volume 9.3 fl (7.4-10.4); Platelet Count Result 234 k/mm3 (150-375); Red Blood Count 3.89 M/mm3 (4.2-5.4); Red Cell Distribution Width 12.3 % (11.5-14.5)
[2021-05-16 05:16] LABS: Alanine Aminotransferase 28 U/L (4-35); Albumin Level 3.9 g/dL (3.5-5.1); Alkaline Phosphatase 80 U/L (38-126); Anion Gap 8 mmol/L (8-16); Aspartate Amino Transferase 39 U/L (14-36); Bilirubin,Total 0.5 mg/dL (0.2-1.3); Blood Urea Nitrogen 6 mg/dL (7-17); Calcium 8.8 mg/dL (8.4-10.2); Carbon Dioxide 24 mmol/L (22-30); Chloride 97 mmol/L (98-107); Creatine Kinase 1328 U/L (30-135); Estimated CRCL calculation 65 ml/min; Estimated Glomerular Filt Rate 60; Glucose 105 mg/dL (65-110); Magnesium 2.3 mg/dL (1.6-2.3); Phosphorus 3.1 mg/dL (2.5-4.5); Potassium 3.2 mmol/L (3.4-5.0); Sodium 129 mmol/L (137-145)
[2021-05-16 05:57] LABS: Vancomycin Trough < 5.0 ug/mL (10.0-20.0)
[2021-05-16] MEDS: levETIRAcetam 1000MG/NACL100ML 1,000 MG/100 ML BAG 400 MG IVPB ×2 (08:10→20:20)
[2021-05-16] MEDS: PANTOPRAZOLE SODIUM IV 40 MG VIAL IV PUSH (08:11)
[2021-05-16] MEDS: ENOXAPARIN 40 MG/0.4 ML SYRINGE SUB-Q (08:11)
[2021-05-16] MEDS: lamoTRIgine 100 MG TABLET 300 MG PO (09:30)
[2021-05-16] MEDS: CHOLECALCIFEROL 1,000 UNITS TABLET 1000 UNITS PO (09:30)
[2021-05-16] MEDS: POTASSIUM CHLORIDE 20 MEQ PACKET (FOR LIQUID) 40 MEQ PO (09:30)
[2021-05-16] MEDS: hydrALAZINE HCL 20 MG/ML VIAL IV PUSH ×2 (10:04→21:35)
--- NOTE | 2021-05-16 10:15 | WPDINTPN ---
Progress Note: A&P Assessment and Plan (1) Encephalopathy due to metabolic factor or toxin: Status: Acute Assessment and Plan: Encephalopathy could be related to sepsis, hyponatremia -CT scan of the brain did not show any acute intracranial processes -she is improving. I am not sure what is her baseline is but she is awake alert and follows commands. She is not oriented but does answer questions seems to be improvement over her presentation. -in light of improvement will hold further imaging and testing at this point and continue to monitor. - Continue to avoid sedatives (2) Hyponatremia: Code(s): E87.1 - Hypo-osmolality and hyponatremia Status: Acute Assessment and Plan: Patient with hyponatremia likely related to psychogenic polydipsia, according to the mother the patient drinks a lot of water daily basis and this has happened multiple times the past with having to be admitted to the hospital for hyponatremia -appreciate Nephrology following the patient and monitoring and managing the sodium levels -sodium levels 129 - patient is will get 500 cc of D5 water and repeat sodium is ordered for later today -patient was on DDAVP and 3% saline earlier in the course (3) Seizure disorder: Onset Date: Unknown Code(s): G40.909 - Epilepsy, unspecified, not intractable, without status epilepticus Status: Acute Assessment and Plan: History of seizure disorders, patient on lamotrigine and Ativan at home -continue Keppra IV, continue p.r.n. Ativan -will resume lamotrigine (4) Schizo-affective schizophrenia, chronic condition with acute exacerbation: Onset Date: ~09/29/19 Code(s): F25.9 - Schizoaffective disorder, unspecified Status: Acute Assessment and Plan: Patient on p.o. Seroquel which is currently on hold, will restart once able to take p.o. Patient will be transferred to inpatient psychiatry once her medical issues are resolved (5) Fever: Qualifiers: Fever type: unspecified Qualified Code(s): R50.9 - Fever, unspecified Code(s): R50.9 - Fever, unspecified Status: Acute Assessment and Plan: Patient febrile, likely related to seizures, could be also related to aspiration pneumonitis -05/13/2021: Blood cultures x2 negative -DC vancomycin but continue Zosyn at this time. will continue for 7 days. I will change antibiotics to p.o. once patient consistently starts taking her p.o. medications (6) Electrolyte abnormality: Code(s): E87.8 - Other disorders of electrolyte and fluid balance, not elsewhere classified Status: Acute Assessment and Plan: Replace low potassium and phosphate (7) Elevated creatine kinase level: Code(s): R74.8 - Abnormal levels of other serum enzymes Status: Acute Assessment and Plan: Patient has mild rhabdomyolysis on presentation which could be from seizures and hyponatremia Fluid management has been conservative due to hyponatremia to avoid significant shift since sodium Monitor renal function (8) Dysphagia: Code(s): R13.10 - Dysphagia, unspecified Status: Acute Assessment and Plan: partly secondary to encephalopathy and partly lack of cooperation with by patient. I spoke to patient again emphasized the importance of nutrition and taking her pills and timely fashion. Speech will again evaluate patient today. requested nurse danial try to give her medications with applesauce.. I would like to avoid placing NG unless absolutely have to. Additional Plan Code status: Full code DVT prophylaxis -Lovenox subQ Subjective Date/time seen: 05/16/21 10:15 overnight events reviewed. Vital signs stable except elevated blood pressure. Yesterday patient had a swallow eval but she was not fully cooperative. Patient was started on pills with applesauce but patient is reluctant to take any medication despite several requests by nurse. This morning
[2021-05-16 13:37] LABS: Sodium 129 mmol/L (137-145)
--- NOTE | 2021-05-16 13:39 | PCDIET ---
Nutrition Follow-Up Complete: Nutrition Diagnosis: Inadequate oral intake related to mental status as evidenced by NPO x 3 days. Nutrition Goal: Patient to meet estimated nutritional needs. Goal not met. No recommendation for diet advancement today, per [facility]. Continue to recommend tube feeding if unable to advance diet. Last recorded weight is 77.4 kg which is down from last review. -I/O. Bowel Motility: No documented BM as of yet. Labs Reviewed: WBC (11.0), RBC (3.89), Hct (34.3), BUN (6), K (3.2), Na (129) Meds Noted: Ddvap Injection, KCl, Vitamin D, Keppra, Protonix, Zosyn Additional Notes: No documented skin breakdown. Will continue to monitor with same goal. Nutrition Monitoring and Evaluation: Follow up every 3 days. Follow daily in ICU rounds.
[2021-05-16] MEDS: DEXTROSE 5% IN WATER 500 ML 240 ML IV CONT (14:49)
[2021-05-16] MEDS: LORazepam INJ (*CRX) 2 MG/ML VIAL 0.5 MG IV PUSH (14:52)
--- NOTE | 2021-05-16 15:56 | PM.PNNEP ---
Progress Note: A&P Assessment and Plan (1) Hyponatremia: Code(s): E87.1 - Hypo-osmolality and hyponatremia Status: Acute Assessment and Plan: the patient has severe hyponatremia. This is psychogenic polydipsia. Early on had auto correction so placed on DDAVP. sodium level stable during the day yesterday. Given 3% saline to bring the sodium up a little bit. It came up to 126. This morning was 129. I would prefer not to be this high so I will give her D5W to bring it down. repeat the sodium after the D5W (2) Encephalopathy due to metabolic factor or toxin: Status: Acute Assessment and Plan: Most likely due to the hyponatremia. CT brain was done at [place]. Limited exam but no acute intracranial findings identified. (3) Elevated creatine kinase level: Code(s): R74.8 - Abnormal levels of other serum enzymes Status: Acute Assessment and Plan: her CPK angelica again slightly. UA showed no blood (4) Dementia associated with other underlying disease with behavioral disturbance: Onset Date: Unknown Code(s): F02.81 - Dementia in other diseases classified elsewhere with behavioral disturbance Status: Acute Assessment and Plan: This is apparently unchanged (5) Schizo-affective schizophrenia, chronic condition with acute exacerbation: Onset Date: ~09/29/19 Code(s): F25.9 - Schizoaffective disorder, unspecified Status: Acute Assessment and Plan: she is on multiple medicines for this (6) Fever: Qualifiers: Fever type: unspecified Qualified Code(s): R50.9 - Fever, unspecified Code(s): R50.9 - Fever, unspecified Status: Acute Assessment and Plan: the patient had a fever. Blood cultures are negative. white cell count is a little bit high. She is on antibiotics no fevers the last 48 hours Subjective Date/time seen: 05/16/21 15:56 Interval history: Roxi is resting comfortably. She seems more with that today. she knows she is in a hospital. Still has a delay and response. Exam Narrative: WDWN in NAD skin no rash head ncat lungs clear bilaterally cor reg no rub or gallop abd BS+ nontender and soft ext no edema. Objective Data Vital Signs Vital Signs: Vital Signs - 24 hr 05/15/21 16:00 05/15/21 18:00 05/15/21 20:00 Temperature 37.0 C 36.6 C Pulse Rate 74 83 63 Respiratory Rate 19 18 16 Blood Pressure 153/98 H 156/96 H 149/97 H Pulse Oximetry 100 99 99 05/15/21 22:00 05/16/21 00:00 05/16/21 02:00 Temperature 37.1 C Pulse Rate 72 62 68 Respiratory Rate 16 16 14 Blood Pressure 145/95 H 141/106 H 115/85 Pulse Oximetry 99 100 100 05/16/21 04:00 05/16/21 06:00 05/16/21 08:00 Temperature 36.9 C Pulse Rate 70 56 L 63 Respiratory Rate 16 16 Blood Pressure 149/101 H 149/92 H Pulse Oximetry 99 100 05/16/21 08:12 05/16/21 09:57 05/16/21 10:00 Temperature 36.9 C Pulse Rate 63 67 74 Respiratory Rate 19 21 H Blood Pressure 153/94 H 170/94 H Pulse Oximetry 99 100 05/16/21 12:00 05/16/21 13:58 05/16/21 14:00 Temperature 37.1 C Pulse Rate 101 H 98 91 Respiratory Rate 14 20 Blood Pressure 157/104 H 167/106 H Pulse Oximetry 99 98 Intake/Output Intake/Output: Intake & Output 05/13/21 05/14/21 05/15/21 05/16/21 23:59 23:59 23:59 23:59 Intake Total 4250 1210 1220 750 Output Total 4300 1950 2500 650 Balance -50 -850 1280 100 Meds/Results Medications: Active Medications Generic Name Dose Route Start Last Admin Trade Name Ze PRN Reason Stop Dose Admin Benztropine Mesylate 0.5 mg 05/13/21 09:00 05/13/21 11:25 Benztropine Mesylate 0.5 Mg Tablet PO Not Given BID MILLIE Desmopressin Acetate 1 mcg 05/15/21 00:00 05/16/21 12:08 Desmopressin Acetate 4 Mcg/Ml Amp IV PUSH 1 mcg Q6HR MILLIE Administration Enoxaparin Sodium 40 mg 05/13/21 09:00 05/16/21 08:11 Enoxaparin 40 Mg/0
[2021-05-16 17:15] LABS: Sodium 128 mmol/L (137-145)
[2021-05-16] MEDS: DEXTROSE 5% 1,000 ML 1,000 ML 240 ML IV CONT (18:00)
[2021-05-16 19:34] LABS: Albumin 4.1 g/dL (3.8-4.8); Alpha 1 Globulin 0.3 g/dL (0.2-0.3); Alpha 2 Globulin 0.6 g/dL (0.5-0.9); Beta 1 Globulin 0.5 g/dL (0.4-0.6); Gamma Globulin 0.8 g/dL (0.8-1.7); Protein, Total 6.5 g/dL (6.1-8.1)
[2021-05-16 21:05] LABS: Sodium 127 mmol/L (137-145)
[2021-05-17] VITALS (13 sets, daily range): BP systolic 129–165; BP diastolic 78–111; PULSE 57–124; RESP 14–23; TEMP 36.6–37.1; O2SAT 97–99
[2021-05-17] MEDS: DESMOPRESSIN ACETATE 4 MCG/ML AMP 1 MCG IV PUSH ×3 (00:08→10:02)
[2021-05-17 04:02] LABS: Hemoglobin 12.5 g/dL (12.0-15.0); Mean Corpuscular HGB Conc 35.7 g/dl (32-36); Mean Corpuscular Hemoglobin 32.1 pg (26-34); Mean Corpuscular Volume 89.7 fl (80-100); Platelet Count Result 268 k/mm3 (150-375); White Blood Count 11.9 K/mm3 (4.5-10.0)
[2021-05-17 04:24] LABS: Anion Gap 9 mmol/L (8-16); Blood Urea Nitrogen 5 mg/dL (7-17); Calcium 8.6 mg/dL (8.4-10.2); Carbon Dioxide 25 mmol/L (22-30); Chloride 95 mmol/L (98-107); Glucose 123 mg/dL (65-110); Phosphorus 2.7 mg/dL (2.5-4.5); Potassium 3.1 mmol/L (3.4-5.0); Sodium 129 mmol/L (137-145)
[2021-05-17] MEDS: SALINE LOCK FLUSH 10 ML IV PUSH ×3 (05:41→22:51)
[2021-05-17 08:13] LABS: Estimated CRCL calculation 148 ml/min; Estimated Glomerular Filt Rate > 60
[2021-05-17] MEDS: PANTOPRAZOLE SODIUM IV 40 MG VIAL IV PUSH (09:57)
[2021-05-17] MEDS: ENOXAPARIN 40 MG/0.4 ML SYRINGE SUB-Q (09:57)
[2021-05-17] MEDS: levETIRAcetam 1000MG/NACL100ML 1,000 MG/100 ML BAG 400 MG IVPB ×2 (09:57→23:22)
[2021-05-17] MEDS: POTASSIUM CHLORIDE 20 MEQ PACKET (FOR LIQUID) 40 MEQ PO ×2 (09:58→15:47)
[2021-05-17] MEDS: lamoTRIgine 100 MG TABLET 300 MG PO (13:11)
[2021-05-17] MEDS: CHOLECALCIFEROL 1,000 UNITS TABLET 1000 UNITS PO ×2 (13:12→17:55)
--- NOTE | 2021-05-17 13:53 | PM.PNNEP ---
Progress Note: A&P Assessment and Plan (1) Hyponatremia: Code(s): E87.1 - Hypo-osmolality and hyponatremia Status: Acute Assessment and Plan: the patient has severe hyponatremia. This is psychogenic polydipsia. Early on had auto correction so placed on DDAVP. Sodium level dropped down to 127 yesterday. Now it is 129. I will decrease the DDAVP to q.12 hours. Will check another sodium level now. (2) Encephalopathy due to metabolic factor or toxin: Status: Acute Assessment and Plan: Most likely due to the hyponatremia. CT brain was done at [place]. Limited exam but no acute intracranial findings identified. Slowly improving. (3) Elevated creatine kinase level: Code(s): R74.8 - Abnormal levels of other serum enzymes Status: Acute Assessment and Plan: her CPK angelica again slightly. UA showed no blood (4) Dementia associated with other underlying disease with behavioral disturbance: Onset Date: Unknown Code(s): F02.81 - Dementia in other diseases classified elsewhere with behavioral disturbance Status: Acute Assessment and Plan: This is apparently unchanged (5) Schizo-affective schizophrenia, chronic condition with acute exacerbation: Onset Date: ~09/29/19 Code(s): F25.9 - Schizoaffective disorder, unspecified Status: Acute Assessment and Plan: she is on multiple medicines for this (6) Fever: Qualifiers: Fever type: unspecified Qualified Code(s): R50.9 - Fever, unspecified Code(s): R50.9 - Fever, unspecified Status: Acute Assessment and Plan: the patient had a fever. Blood cultures are negative. white cell count is a little bit high. She is on antibiotics no fevers lately. Subjective Date/time seen: 05/17/21 13:53 Interval history: Roxi is resting comfortably. She seems more with that today. Speech is a little more fluent today. Still has a delayed response. Exam Narrative: WDWN in NAD skin no rash or subQ nodules head ncat lungs clear bilaterally cor reg no rub or gallop abd BS+ nontender and soft ext no edema. Or cyanosis Objective Data Vital Signs Vital Signs: Vital Signs - 24 hr 05/16/21 13:58 05/16/21 14:00 05/16/21 16:00 Temperature 37.1 C Pulse Rate 98 91 89 Respiratory Rate 20 19 Blood Pressure 167/106 H 156/93 H Pulse Oximetry 98 99 05/16/21 18:00 05/16/21 20:00 05/16/21 22:00 Temperature 36.8 C Pulse Rate 86 81 108 H Respiratory Rate 16 15 19 Blood Pressure 158/104 H 160/101 H 157/96 H Pulse Oximetry 99 100 98 05/17/21 00:00 05/17/21 02:00 05/17/21 04:00 Temperature 37.1 C 36.9 C Pulse Rate 104 H 99 79 Respiratory Rate 23 H 22 H 14 Blood Pressure 162/99 H 147/83 H 137/88 Pulse Oximetry 98 99 98 05/17/21 06:00 05/17/21 08:00 05/17/21 10:00 Temperature 37.1 C Pulse Rate 60 57 L 86 Respiratory Rate 20 18 19 Blood Pressure 133/78 148/88 H 154/96 H Pulse Oximetry 97 98 98 Intake/Output Intake/Output: Intake & Output 05/14/21 05/15/21 05/16/21 05/17/21 23:59 23:59 23:59 23:59 Intake Total 1210 1220 1380 100 Output Total 1950 2500 1500 900 Balance -740 -1280 -120 -800 Meds/Results Medications: Active Medications Generic Name Dose Route Start Last Admin Trade Name Ze PRN Reason Stop Dose Admin Benztropine Mesylate 0.5 mg 05/13/21 09:00 05/13/21 11:25 Benztropine Mesylate 0.5 Mg Tablet PO Not Given BID MILLIE Desmopressin Acetate 1 mcg 05/17/21 09:00 05/17/21 10:02 Desmopressin Acetate 4 Mcg/Ml Amp IV PUSH 1 mcg Q12HR MILLIE Administration Enoxaparin Sodium 40 mg 05/13/21 09:00 05/17/21 09:57 Enoxaparin 40 Mg/0.4 Ml Syringe SUB-Q 40 mg DAILY MILLIE Administration Haloperidol 10 mg 05/13/21 21:00 Haloperidol 5 Mg Tablet PO 06/12/21 20:59 HS MILLIE Hydralazine HCl 20 mg 05/15/21 20:30 05/16/21 21:35 Hydralazine Hcl 20
--- NOTE | 2021-05-17 14:04 | WPDINTPN ---
Progress Note: A&P Assessment and Plan (1) Encephalopathy due to metabolic factor or toxin: Status: Acute Assessment and Plan: Encephalopathy could be related to sepsis, hyponatremia -CT scan of the brain did not show any acute intracranial processes -she is improving. I am not sure what is her baseline is but she is awake alert and follows commands. She is partially oriented but does answer questions seems to be improvement over her presentation. - Continue to avoid sedatives (2) Hyponatremia: Code(s): E87.1 - Hypo-osmolality and hyponatremia Status: Acute Assessment and Plan: Patient with hyponatremia likely related to psychogenic polydipsia, according to the mother the patient drinks a lot of water daily basis and this has happened multiple times the past with having to be admitted to the hospital for hyponatremia -appreciate Nephrology following the patient and monitoring and managing the sodium levels -sodium levels 129 today (3) Seizure disorder: Onset Date: Unknown Code(s): G40.909 - Epilepsy, unspecified, not intractable, without status epilepticus Status: Acute Assessment and Plan: History of seizure disorders, patient on lamotrigine and Ativan at home -continue Keppra IV, continue p.r.n. Ativan - resumed lamotrigine (4) Schizo-affective schizophrenia, chronic condition with acute exacerbation: Onset Date: ~09/29/19 Code(s): F25.9 - Schizoaffective disorder, unspecified Status: Acute Assessment and Plan: Patient on p.o. Seroquel which is currently on hold, will restart once able to take p.o. Patient will be transferred to inpatient psychiatry once her medical issues are resolved (5) Fever: Qualifiers: Fever type: unspecified Qualified Code(s): R50.9 - Fever, unspecified Code(s): R50.9 - Fever, unspecified Status: Acute Assessment and Plan: Patient febrile, likely related to seizures, could be also related to aspiration pneumonitis -05/13/2021: Blood cultures x2 negative -DC vancomycin but continue Zosyn at this time. will continue for 7 days. I will change antibiotics to p.o. once patient consistently starts taking her p.o. medications (6) Electrolyte abnormality: Code(s): E87.8 - Other disorders of electrolyte and fluid balance, not elsewhere classified Status: Acute Assessment and Plan: Replace low potassium and phosphate (7) Elevated creatine kinase level: Code(s): R74.8 - Abnormal levels of other serum enzymes Status: Acute Assessment and Plan: Patient has mild rhabdomyolysis on presentation which could be from seizures and hyponatremia Fluid management has been conservative due to hyponatremia to avoid significant shift since sodium Monitor renal function (8) Dysphagia: Code(s): R13.10 - Dysphagia, unspecified Status: Acute Assessment and Plan: partly secondary to encephalopathy and partly lack of cooperation with by patient. I spoke to patient again today emphasized the importance of nutrition and taking her pills in timely fashion. she states she is willing to eat food and would like to have applesauce this morning. Speech will again evaluate patient today. Requested nurse to try to give her medications with applesauce. I would like to avoid placing NG unless absolutely have to. Additional Plan Code status: Full code DVT prophylaxis -Lovenox subQ Transfer out of ICU today Subjective Date/time seen: 05/17/21 14:04 Patient states she feels fine and denies any medical complaints. She Answers no to all questions for review of systems. She states she would like to eat some applesauce this morning. Her orientation is slightly better as she is aware of where she is right now Review of Systems Review of Systems: All systems reviewed & are unremarkable except as noted in HPI and below (Subjective) Exam Const: General:
[2021-05-17 15:21] LABS: Sodium 130 mmol/L (137-145)
[2021-05-17] MEDS: LORazepam INJ (*CRX) 2 MG/ML VIAL 0.5 MG IV PUSH (16:16)
[2021-05-17] MEDS: hydrALAZINE HCL 20 MG/ML VIAL IV PUSH (16:34)
--- NOTE | 2021-05-17 18:35 | PC.NURSE ---
This patient, Marisa Deleon, was received from ICU 7 on 05/17/21 at 1835. Patient/family oriented to unit policies and routines.
--- NOTE | 2021-05-17 18:50 | PC.NURSE ---
Report given to IRMA Dukes. Patient transferred to 204 via bed. Belongings sent with patient.
[2021-05-18] VITALS (14 sets, daily range): BP systolic 135–172; BP diastolic 77–110; PULSE 60–110; RESP 16–22; TEMP 36.5–37.5; O2SAT 98–100
[2021-05-18] MEDS: SALINE LOCK FLUSH 10 ML IV PUSH ×3 (06:41→21:28)
[2021-05-18] MEDS: SALINE LOCK FLUSH 20 ML IV PUSH (06:42)
--- NOTE | 2021-05-18 09:29 | PM.IMPN ---
Progress Note: A&P Assessment and Plan (1) Encephalopathy due to metabolic factor or toxin: Status: Acute Assessment and Plan: Encephalopathy could be related to sepsis, hyponatremia -CT scan of the brain did not show any acute intracranial processes -she is improving. I am not sure what is her baseline is but she is awake alert and follows commands. She is partially oriented but does answer questions seems to be improvement over her presentation. - Continue to avoid sedatives (2) Hyponatremia: Code(s): E87.1 - Hypo-osmolality and hyponatremia Status: Acute Assessment and Plan: Patient with severe hyponatremia likely related to psychogenic polydipsia, according to the mother the patient drinks a lot of water daily basis and this has happened multiple times the past with having to be admitted to the hospital for hyponatremia -appreciate Nephrology following the patient and monitoring and managing the sodium levels -sodium levels gone up to 130 yesterday will repeat the levels and monitor (3) Seizure disorder: Onset Date: Unknown Code(s): G40.909 - Epilepsy, unspecified, not intractable, without status epilepticus Status: Acute Assessment and Plan: History of seizure disorders, patient on lamotrigine and Ativan at home -continue Keppra IV, continue p.r.n. Ativan - resumed lamotrigine (4) Schizo-affective schizophrenia, chronic condition with acute exacerbation: Onset Date: ~09/29/19 Code(s): F25.9 - Schizoaffective disorder, unspecified Status: Acute Assessment and Plan: Patient on p.o. Seroquel which is currently on hold, will restart once able to take p.o. Patient will be transferred to inpatient psychiatry once her medical issues are resolved voluntarily (5) Fever: Qualifiers: Fever type: unspecified Qualified Code(s): R50.9 - Fever, unspecified Code(s): R50.9 - Fever, unspecified Status: Acute Assessment and Plan: Patient febrile, likely related to seizures, could be also related to aspiration pneumonitis -05/13/2021: Blood cultures x2 negative -DC vancomycin but continue Zosyn at this time. will continue for 7 days. I will change antibiotics to p.o. once patient consistently starts taking her p.o. medications (6) Electrolyte abnormality: Code(s): E87.8 - Other disorders of electrolyte and fluid balance, not elsewhere classified Status: Acute Assessment and Plan: Replace low potassium and phosphate (7) Elevated creatine kinase level: Code(s): R74.8 - Abnormal levels of other serum enzymes Status: Acute Assessment and Plan: Patient has mild rhabdomyolysis on presentation which could be from seizures and hyponatremia Fluid management has been conservative due to hyponatremia to avoid significant shift since sodium Monitor renal function (8) Dysphagia: Code(s): R13.10 - Dysphagia, unspecified Status: Acute Assessment and Plan: partly secondary to encephalopathy and partly lack of cooperation with by patient. Discussed by previous physician regarding the importance of nutrition and taking her pills in timely fashion. She remains NPO and will go for modified barium swallow test for further evaluation. Additional Plan Code status: Full code DVT prophylaxis -Lovenox subQ Subjective Date/time seen: 05/18/21 09:29 Interval history: 45-year-old female with past medical history significant for temporal lobe seizures, psychogenic polydipsia, bipolar disorder, some concerning history of frontotemporal dementia presented with complains of seizures and altered mental status. Patient was managed for seizures secondary to hyponatremia, given sodium levels of 110 on arrival. Patient is being followed by Nephrology She is also noted to have rhabdomyolysis with CK level was elevated to 1500. Some moderate WBC elevation is noted as well. Interval history is she
[2021-05-18] MEDS: lamoTRIgine 100 MG TABLET 300 MG PO (09:36)
[2021-05-18] MEDS: CHOLECALCIFEROL 1,000 UNITS TABLET 1000 UNITS PO ×2 (09:36→18:45)
[2021-05-18] MEDS: levETIRAcetam 1000MG/NACL100ML 1,000 MG/100 ML BAG 400 MG IVPB ×2 (09:37→21:28)
[2021-05-18] MEDS: PANTOPRAZOLE SODIUM IV 40 MG VIAL IV PUSH (09:38)
[2021-05-18] MEDS: ENOXAPARIN 40 MG/0.4 ML SYRINGE SUB-Q (09:38)
--- NOTE | 2021-05-18 09:40 | PCDIET ---
Nutrition Follow-Up Complete: Nutrition Diagnosis: Inadequate oral intake related to mental status as evidenced by NPO x 3 days. Nutrition Goal: Patient to meet estimated nutritional needs. Goal in progress. Patient remains NPO with plan for [facility] to re-evaluate today. If unable to safely advance diet, continue to recommend Two Yoel HN at goal of 40mL/hr. Last recorded weight is 77.1 kg which is stable with last review. -I/O. Bowel Motility: Last documented BM on 05/14/21. Labs Reviewed: Pending. Meds Noted: Ddavp Injection, Haldol, Protonix, Zosyn, Apresoline, Lamictal, Keppra, Vitamin D Additional Notes: No documented skin breakdown. Will continue to monitor with same goal. Nutrition Monitoring and Evaluation: Follow up every 3 days.
[2021-05-18 09:57] LABS: Anion Gap 7 mmol/L (8-16); Blood Urea Nitrogen 6 mg/dL (7-17); Calcium 9.8 mg/dL (8.4-10.2); Carbon Dioxide 29 mmol/L (22-30); Chloride 101 mmol/L (98-107); Estimated CRCL calculation 59 ml/min; Estimated Glomerular Filt Rate 54; Glucose 108 mg/dL (65-110); Potassium 3.6 mmol/L (3.4-5.0); Sodium 137 mmol/L (137-145)
[2021-05-18] MEDS: DESMOPRESSIN ACETATE 4 MCG/ML AMP 1 MCG IV PUSH ×2 (10:02→21:25)
[2021-05-18] MEDS: DEXTROSE 5% IN WATER 500 ML 250 ML IV CONT (12:40)
[2021-05-18 13:47] LABS: Anion Gap 10 mmol/L (8-16); Blood Urea Nitrogen 6 mg/dL (7-17); Calcium 9.4 mg/dL (8.4-10.2); Carbon Dioxide 26 mmol/L (22-30); Chloride 99 mmol/L (98-107); Estimated CRCL calculation 64 ml/min; Estimated Glomerular Filt Rate 60; Glucose 127 mg/dL (65-110); Potassium 3.5 mmol/L (3.4-5.0); Sodium 135 mmol/L (137-145)
--- NOTE | 2021-05-18 14:25 | PC.NURSE ---
On 05/18/21, the student, [Bev Wright], provided care and completed [facility] documentation on this patient. I have reviewed the student's documentation and agree with the findings.
--- NOTE | 2021-05-18 14:42 | PCSTNOTE ---
Please refer to the Modified Barium Swallow Evaluation in the EMR.
--- NOTE | 2021-05-18 22:09 | PM.PNNEP ---
Progress Note: A&P Assessment and Plan (1) Hyponatremia: Code(s): E87.1 - Hypo-osmolality and hyponatremia Status: Acute Assessment and Plan: the patient has severe hyponatremia. This is psychogenic polydipsia. Early on had auto correction so placed on DDAVP. Sodium level dropped down to 127 friday, 130 yesterday, [id number] today but corrected by 7over 12 hours from yesterday pm to this morning so given d5w and now 135. will check again this evening. contineu DDAVP q.12 hours. (2) Encephalopathy due to metabolic factor or toxin: Status: Acute Assessment and Plan: Most likely due to the hyponatremia. CT brain was done at [place]. Limited exam but no acute intracranial findings identified. Slowly improving. (3) Elevated creatine kinase level: Code(s): R74.8 - Abnormal levels of other serum enzymes Status: Acute Assessment and Plan: her CPK angelica again slightly. UA showed no blood (4) Dementia associated with other underlying disease with behavioral disturbance: Onset Date: Unknown Code(s): F02.81 - Dementia in other diseases classified elsewhere with behavioral disturbance Status: Acute Assessment and Plan: This is apparently unchanged (5) Schizo-affective schizophrenia, chronic condition with acute exacerbation: Onset Date: ~09/29/19 Code(s): F25.9 - Schizoaffective disorder, unspecified Status: Acute Assessment and Plan: she is on multiple medicines for this (6) Fever: Qualifiers: Fever type: unspecified Qualified Code(s): R50.9 - Fever, unspecified Code(s): R50.9 - Fever, unspecified Status: Acute Assessment and Plan: the patient had a fever. Blood cultures are negative. white cell count is a little bit high. She is on antibiotics no fevers lately. Subjective Date/time seen: 05/18/21 22:09 Interval history: Roxi is resting comfortably. working with physical therapy. walked in the halls with help. Still has a delayed response. Exam Narrative: WDWN in NAD skin no rash or subQ nodules head ncat lungs clear bilaterally cor reg no rub or gallop abd BS+ nontender and soft ext no edema Objective Data Vital Signs Vital Signs: Vital Signs - 24 hr 05/18/21 00:00 05/18/21 02:00 05/18/21 04:00 Temperature 37.0 C 37.0 C 37.1 C Pulse Rate 95 94 60 Respiratory Rate 20 19 20 Blood Pressure 147/85 H 151/96 H 165/99 H Pulse Oximetry 99 100 100 05/18/21 06:00 05/18/21 07:55 05/18/21 08:00 Temperature 37.1 C 36.5 C Pulse Rate 61 79 85 Respiratory Rate 19 16 Blood Pressure 168/77 H 135/92 H Pulse Oximetry 99 99 05/18/21 09:00 05/18/21 10:00 05/18/21 12:00 Temperature 36.8 C Pulse Rate 72 80 78 Respiratory Rate 22 H Blood Pressure 150/91 H Pulse Oximetry 100 05/18/21 12:38 05/18/21 14:00 05/18/21 16:00 Temperature 37.5 C Pulse Rate 78 92 95 Respiratory Rate 22 H Blood Pressure 150/95 H Pulse Oximetry 100 05/18/21 16:30 05/18/21 20:00 Temperature 36.9 C 37.0 C Pulse Rate 109 H 110 H Respiratory Rate 20 20 Blood Pressure 137/97 H 172/110 H Pulse Oximetry 98 Intake/Output Intake/Output: Intake & Output 05/15/21 05/16/21 05/17/21 05/18/21 23:59 23:59 23:59 23:59 Intake Total 1220 1380 400 630 Output Total 2500 1500 1800 1900 Balance -1280 -120 -1400 -1270 Meds/Results Medications: Active Medications Generic Name Dose Route Start Last Admin Trade Name Johnq PRN Reason Stop Dose Admin Benztropine Mesylate 0.5 mg 05/13/21 09:00 05/13/21 11:25 Benztropine Mesylate 0.5 Mg Tablet PO Not Given BID MILLIE Desmopressin Acetate 1 mcg 05/17/21 09:00 05/18/21 21:25 Desmopressin Acetate 4 Mcg/Ml Amp IV PUSH 1 mcg Q12HR MILLIE Administration Enoxaparin Sodium 40 mg 05/13/21 09:00 05/18/21 09:38 Enoxaparin 40 Mg/0.4 Ml Syringe SUB-Q 40 mg DAILY MILLIE
[2021-05-18 23:43] LABS: Magnesium 2.1 mg/dL (1.6-2.3); Phosphorus 3.9 mg/dL (2.5-4.5)
[2021-05-19] VITALS (8 sets, daily range): BP systolic 120–198; BP diastolic 68–110; PULSE 78–122; RESP 17–21; TEMP 36.3–37.6; O2SAT 95–100
[2021-05-19] MEDS: LORazepam INJ (*CRX) 2 MG/ML VIAL 0.5 MG IV PUSH (01:18)
[2021-05-19 01:36] LABS: Hematocrit 33.8 % (37.0-47.0); Hemoglobin 11.9 g/dL (12.0-15.0); Mean Corpuscular HGB Conc 35.2 g/dl (32-36); Mean Corpuscular Hemoglobin 31.6 pg (26-34); Mean Corpuscular Volume 89.9 fl (80-100); Mean Platelet Volume 9.4 fl (7.4-10.4); Platelet Count Result 302 k/mm3 (150-375); Red Blood Count 3.76 M/mm3 (4.2-5.4); Red Cell Distribution Width 13.4 % (11.5-14.5); White Blood Count 20.6 K/mm3 (4.5-10.0)
[2021-05-19 01:45] LABS: Sodium 133 mmol/L (137-145)
[2021-05-19 05:41] LABS: Basophils Percent Auto 0.2 % (0.2-1.2); Eosinophils Percent Auto 0.2 % (0-4.4); Hematocrit 32.1 % (37.0-47.0); Immature Granulocyte Absolute 0.13 K/mm3 (0.00-0.031); Immature Granulocyte Percent A 0.8 % (0-0.5); Lymphocytes Absolute Auto 1.55 K/mm3 (0.9-3.2); Mean Corpuscular HGB Conc 34.3 g/dl (32-36); Mean Corpuscular Hemoglobin 31.3 pg (26-34); Mean Corpuscular Volume 91.2 fl (80-100); Mean Platelet Volume 9.5 fl (7.4-10.4); Monocytes Absolute Auto 1.7 K/mm3 (0.1-0.6); Neutrophils Absolute Auto 13.7 K/mm3 (1.3-6.7); Neutrophils Percent Auto 79.8 % (45.5-73.1); Platelet Count Result 281 k/mm3 (150-375); Red Blood Count 3.52 M/mm3 (4.2-5.4); Red Cell Distribution Width 13.4 % (11.5-14.5); White Blood Count 17.1 K/mm3 (4.5-10.0)
[2021-05-19 05:53] LABS: Albumin Level 3.9 g/dL (3.5-5.1); Anion Gap 8 mmol/L (8-16); Blood Urea Nitrogen 7 mg/dL (7-17); Calcium 9.2 mg/dL (8.4-10.2); Carbon Dioxide 25 mmol/L (22-30); Chloride 97 mmol/L (98-107); Estimated CRCL calculation 64 ml/min; Estimated Glomerular Filt Rate 60; Glucose 106 mg/dL (65-110); Phosphorus 4.7 mg/dL (2.5-4.5); Potassium 3.4 mmol/L (3.4-5.0); Sodium 130 mmol/L (137-145)
[2021-05-19] MEDS: SALINE LOCK FLUSH 10 ML IV PUSH ×3 (07:08→22:36)
--- NOTE | 2021-05-19 07:16 | PC.NURSE ---
This patient, Marisa Deleon, was transferred to [room 341-1 at 0640] on 05/19/21 at 0717. Personal belongings sent with patient. Report given to [IRMA Harrison]. Appropriate documentation sent with patient.
[2021-05-19] MEDS: levETIRAcetam 1000MG/NACL100ML 1,000 MG/100 ML BAG 400 MG IVPB ×2 (08:24→22:33)
[2021-05-19] MEDS: CHOLECALCIFEROL 1,000 UNITS TABLET 1000 UNITS PO ×2 (08:25→17:15)
[2021-05-19] MEDS: DESMOPRESSIN ACETATE 4 MCG/ML AMP 1 MCG IV PUSH (08:25)
[2021-05-19] MEDS: lamoTRIgine 100 MG TABLET 300 MG PO (08:25)
[2021-05-19] MEDS: ENOXAPARIN 40 MG/0.4 ML SYRINGE SUB-Q (08:25)
[2021-05-19] MEDS: PANTOPRAZOLE SODIUM IV 40 MG VIAL IV PUSH (08:26)
--- NOTE | 2021-05-19 11:15 | PM.PNNEP ---
Progress Note: A&P Assessment and Plan (1) Hyponatremia: Code(s): E87.1 - Hypo-osmolality and hyponatremia Status: Acute Assessment and Plan: the patient had severe hyponatremia. This is psychogenic polydipsia. recently sodium corrected to 137 and then 135. The whole time she was NPO. Now she has been given water ad lacie and her sodium came down to 130 by this morning. Will employ fluid restriction. (2) Encephalopathy due to metabolic factor or toxin: Status: Acute Assessment and Plan: Gradually better (3) Elevated creatine kinase level: Code(s): R74.8 - Abnormal levels of other serum enzymes Status: Acute Assessment and Plan: her CPK angelica again slightly. UA showed no blood (4) Dementia associated with other underlying disease with behavioral disturbance: Onset Date: Unknown Code(s): F02.81 - Dementia in other diseases classified elsewhere with behavioral disturbance Status: Acute Assessment and Plan: This is apparently unchanged (5) Schizo-affective schizophrenia, chronic condition with acute exacerbation: Onset Date: ~09/29/19 Code(s): F25.9 - Schizoaffective disorder, unspecified Status: Acute Assessment and Plan: she is on multiple medicines for this (6) Fever: Qualifiers: Fever type: unspecified Qualified Code(s): R50.9 - Fever, unspecified Code(s): R50.9 - Fever, unspecified Status: Acute Assessment and Plan: the patient had a fever. Blood cultures are negative. white cell count angelica yesterday but is back down to 17 today. She is on antibiotics no fevers lately. Subjective Date/time seen: 05/19/21 11:16 Interval history: patient feels better. no cp or sob. she was NPO yesterday. However in the afternoon she was given free access to water and she started drinking large amounts of water and is doing so again this morning She had a sodium level done last evening but the nurses did not give me a call. It was 137 then 135 and now is 130 again. I talked with the patient at length. She needs to be on a fluid restriction now. For now I will put her on 1000cc per day but in the future as the sodium level stabilizes we can give her more water. We discussed the importance of how sick she gets when she drink so much water. Exam Narrative: WDWN in NAD skin no rash or subQ nodules head ncat lungs clear bilaterally cor reg no rub or gallop abd BS+ nontender and soft ext no edema Objective Data Vital Signs Vital Signs: Vital Signs - 24 hr 05/18/21 12:00 05/18/21 12:38 05/18/21 14:00 Temperature 37.5 C Pulse Rate 78 78 92 Respiratory Rate 22 H Blood Pressure 150/95 H Pulse Oximetry 100 05/18/21 16:00 05/18/21 16:30 05/18/21 20:00 Temperature 36.9 C 37.0 C Pulse Rate 95 109 H 110 H Respiratory Rate 20 20 Blood Pressure 137/97 H 172/110 H Pulse Oximetry 98 05/19/21 00:00 05/19/21 04:00 05/19/21 08:00 Temperature 37.0 C 37.1 C 36.3 C L Pulse Rate 90 96 87 Respiratory Rate 21 H 20 20 Blood Pressure 162/98 H 153/90 H 144/93 H Pulse Oximetry 99 98 100 Intake/Output Intake/Output: Intake & Output 05/16/21 05/17/21 05/18/21 05/19/21 23:59 23:59 23:59 23:59 Intake Total 1380 768 721 4597 Output Total 1500 1800 1900 1000 Balance -120 -1400 -1270 2060 Meds/Results Medications: Active Medications Generic Name Dose Route Start Last Admin Trade Name Ze PRN Reason Stop Dose Admin Benztropine Mesylate 0.5 mg 05/13/21 09:00 05/13/21 11:25 Benztropine Mesylate 0.5 Mg Tablet PO Not Given BID MILLIE Desmopressin Acetate 1 mcg 05/17/21 09:00 05/19/21 08:25 Desmopressin Acetate 4 Mcg/Ml Amp IV PUSH 1 mcg Q12HR MILLIE Administration Enoxaparin Sodium 40 mg 05/13/21 09:00 05/19/21 08:25 Enoxaparin 40 Mg/0.4 Ml Syringe SUB-Q 40 mg DAILY MILLIE Administration Yobani
[2021-05-19] MEDS: hydrALAZINE HCL 20 MG/ML VIAL IV PUSH (12:30)
--- NOTE | 2021-05-19 16:04 | PM.IMPN ---
Progress Note: A&P Assessment and Plan (1) Encephalopathy due to metabolic factor or toxin: Status: Acute Assessment and Plan: Encephalopathy could be related to sepsis, hyponatremia -CT scan of the brain did not show any acute intracranial processes -she is improving. I am not sure what is her baseline is but she is awake alert and follows commands. She is partially oriented but does answer questions seems to be improvement over her presentation. - Continue to avoid sedatives Discussed with her mother. Will need to start her back on her antipsychotics slowly Hyponatremia likely due to psychogenic polydipsia likely needs inpatient psychiatry treatment. (2) Hyponatremia: Code(s): E87.1 - Hypo-osmolality and hyponatremia Status: Acute Assessment and Plan: Patient with severe hyponatremia likely related to psychogenic polydipsia, according to the mother the patient drinks a lot of water daily basis and this has happened multiple times the past with having to be admitted to the hospital for hyponatremia -appreciate Nephrology following the patient and monitoring and managing the sodium levels -sodium levels gone up to 130 yesterday will repeat the levels and monitor Sodium level give down from 137 with open access to water conforming the diagnosis again Fluid restriction to 1000 cc a day added continue to monitor sodium level (3) Seizure disorder: Onset Date: Unknown Code(s): G40.909 - Epilepsy, unspecified, not intractable, without status epilepticus Status: Acute Assessment and Plan: History of seizure disorders, patient on lamotrigine and Ativan at home -continue Keppra IV, continue p.r.n. Ativan - resumed lamotrigine (4) Schizo-affective schizophrenia, chronic condition with acute exacerbation: Onset Date: ~09/29/19 Code(s): F25.9 - Schizoaffective disorder, unspecified Status: Acute Assessment and Plan: Patient on p.o. Seroquel which is currently on hold, will restart once able to take p.o. Patient will be transferred to inpatient psychiatry once her medical issues are resolved voluntarily Will benefit from inpatient psychiatry treatment Will resume her Seroquel as she is able to take p.o. now and monitor sodium level (5) Fever: Qualifiers: Fever type: unspecified Qualified Code(s): R50.9 - Fever, unspecified Code(s): R50.9 - Fever, unspecified Status: Acute Assessment and Plan: Patient febrile, likely related to seizures, could be also related to aspiration pneumonitis -05/13/2021: Blood cultures x2 negative -DC vancomycin but continue Zosyn at this time. will continue for 7 days. I will change antibiotics to p.o. once patient consistently starts taking her p.o. medications (6) Electrolyte abnormality: Code(s): E87.8 - Other disorders of electrolyte and fluid balance, not elsewhere classified Status: Acute Assessment and Plan: Replace low potassium and phosphate (7) Elevated creatine kinase level: Code(s): R74.8 - Abnormal levels of other serum enzymes Status: Acute Assessment and Plan: Patient has mild rhabdomyolysis on presentation which could be from seizures and hyponatremia Fluid management has been conservative due to hyponatremia to avoid significant shift since sodium Monitor renal function (8) Dysphagia: Code(s): R13.10 - Dysphagia, unspecified Status: Acute Assessment and Plan: partly secondary to encephalopathy and partly lack of cooperation with by patient. Discussed by previous physician regarding the importance of nutrition and taking her pills in timely fashion. She remains NPO and will go for modified barium swallow test for further evaluation. Passed modified barium swallow and now on diet Additional Plan Code status: Full code DVT prophylaxis -Lovenox subQ Subjective Date/time seen: 05/19/21 16:04 Interval history: 45-yea
[2021-05-19 19:19] LABS: Sodium 130 mmol/L (137-145)
[2021-05-19] MEDS: QUEtiapine FUMARATE 100 MG TABLET 400 MG PO (22:36)
--- NOTE | 2021-05-20 01:15 | PC.NURSE ---
Daylight Savings Time For Daylight Savings Time Ending in the Fall - Clocks are moved back. For Daylight Savings Time Beginning in the Spring - Clocks are moved ahead. For [facility], the time of change occurs at 0200 hrs. Time is taken from the title searcher. This entry on the patient's chart recognizes the change in time reflected during documentation. Example: 2 entries for vital signs may be charted for 0200 hrs.
[2021-05-20 04:00] VITALS: BP 149/94; PULSE 86; RESP 16; TEMP 36.4; O2SAT 100
[2021-05-20] MEDS: SALINE LOCK FLUSH 10 ML IV PUSH ×3 (06:18→21:28)
[2021-05-20 08:00] VITALS: BP 151/91; PULSE 91; RESP 18; TEMP 37; O2SAT 99
[2021-05-20 08:08] LABS: Anion Gap 8 mmol/L (8-16); Blood Urea Nitrogen 8 mg/dL (7-17); Calcium 9.5 mg/dL (8.4-10.2); Carbon Dioxide 31 mmol/L (22-30); Chloride 100 mmol/L (98-107); Estimated CRCL calculation 58 ml/min; Estimated Glomerular Filt Rate 54; Glucose 102 mg/dL (65-110); Potassium 3.4 mmol/L (3.4-5.0); Sodium 139 mmol/L (137-145)
[2021-05-20 08:34] LABS: Basophils Percent Auto 0.3 % (0.2-1.2); Eosinophils Percent Auto 0.4 % (0-4.4); Hematocrit 36.6 % (37.0-47.0); Hemoglobin 12.3 g/dL (12.0-15.0); Immature Granulocyte Absolute 0.09 K/mm3 (0.00-0.031); Immature Granulocyte Percent A 0.8 % (0-0.5); Lymphocytes Absolute Auto 1.67 K/mm3 (0.9-3.2); Lymphocytes Percent Auto 15.6 % (18.3-44.2); Mean Corpuscular HGB Conc 33.6 g/dl (32-36); Mean Corpuscular Hemoglobin 31.4 pg (26-34); Mean Corpuscular Volume 93.4 fl (80-100); Mean Platelet Volume 9.6 fl (7.4-10.4); Monocytes Percent Auto 9.6 % (2.6-8.5); Neutrophils Absolute Auto 7.8 K/mm3 (1.3-6.7); Neutrophils Percent Auto 73.3 % (45.5-73.1); Platelet Count Result 292 k/mm3 (150-375); Red Blood Count 3.92 M/mm3 (4.2-5.4); Red Cell Distribution Width 13.5 % (11.5-14.5); White Blood Count 10.7 K/mm3 (4.5-10.0)
[2021-05-20] MEDS: CHOLECALCIFEROL 1,000 UNITS TABLET 1000 UNITS PO ×2 (08:36→17:11)
[2021-05-20] MEDS: ENOXAPARIN 40 MG/0.4 ML SYRINGE SUB-Q (08:36)
[2021-05-20] MEDS: lamoTRIgine 100 MG TABLET 300 MG PO (08:36)
[2021-05-20] MEDS: PANTOPRAZOLE SODIUM IV 40 MG VIAL IV PUSH (08:36)
[2021-05-20] MEDS: levETIRAcetam 1000MG/NACL100ML 1,000 MG/100 ML BAG 400 MG IVPB ×2 (08:36→21:28)
--- NOTE | 2021-05-20 08:57 | PCPTNOTE ---
Attempted to see patient for Physical Therapy treatment. Patient initially agreed to participate and performed seated ankle pumps x 10; after exercise, patient returned to supine position. Requested that patient return to sitting after she rested to continue with exercises; patient returned to seated position at EOB and performed 5 reps of LAQ on each leg before returning to supine and refusing further exercises. When patient was asked to perform supine exercise, patient refused stating No. I need a rest. Will attempt again at a later time.
[2021-05-20] MEDS: DESMOPRESSIN ACETATE 4 MCG/ML AMP 2 MCG IV PUSH (10:50)
[2021-05-20] MEDS: QUEtiapine FUMARATE 100 MG TABLET 300 MG PO (11:41)
--- NOTE | 2021-05-20 11:43 | PM.PNNEP ---
Progress Note: A&P Assessment and Plan (1) Hyponatremia: Code(s): E87.1 - Hypo-osmolality and hyponatremia Status: Acute Assessment and Plan: the patient had severe hyponatremia. This is psychogenic polydipsia. recently sodium corrected to 137 and then 135 then 130 and now 139. given ddavp one time and 500cc fluids PO (which she guzzled down). repeat sodium level in 2 hours. (2) Encephalopathy due to metabolic factor or toxin: Status: Acute Assessment and Plan: Seems to have reached a baseline. (3) Elevated creatine kinase level: Code(s): R74.8 - Abnormal levels of other serum enzymes Status: Acute Assessment and Plan: her CPK angelica again slightly. UA showed no blood (4) Dementia associated with other underlying disease with behavioral disturbance: Onset Date: Unknown Code(s): F02.81 - Dementia in other diseases classified elsewhere with behavioral disturbance Status: Acute Assessment and Plan: This is apparently unchanged (5) Schizo-affective schizophrenia, chronic condition with acute exacerbation: Onset Date: ~09/29/19 Code(s): F25.9 - Schizoaffective disorder, unspecified Status: Acute Assessment and Plan: she is on multiple medicines for this (6) Fever: Qualifiers: Fever type: unspecified Qualified Code(s): R50.9 - Fever, unspecified Code(s): R50.9 - Fever, unspecified Status: Acute Assessment and Plan: the patient had a fever. Blood cultures are negative. on Zosyn. Subjective Date/time seen: 05/20/21 11:43 Interval history: patient feels better. no cp or sob. she was NPO yesterday. However in the afternoon she was given free access to water and she started drinking large amounts of water and is doing so again this morning She had a sodium level done last evening but the nurses did not give me a call. sodium level improved to 139. her sodiums are up and down quite a bit so it is hard to know what her exact baseline is. But I felt more comfortable just giving her some water and 1 shot of DDAVP to bring her sodium level back down to about 137 and keep it there. I am going to increase fluid restriction to 2000 and see how her sodium does. Exam Narrative: WDWN in NAD skin no rash or subQ nodules head ncat lungs clear bilaterally cor reg no rub or gallop abd BS+ nontender and soft ext no edema Objective Data Vital Signs Vital Signs: Vital Signs - 24 hr 05/19/21 13:11 05/19/21 16:00 05/19/21 19:46 Temperature 37.6 C H 36.6 C Pulse Rate 119 H 103 H Respiratory Rate 20 17 Blood Pressure 148/78 H 142/77 H 151/89 H Pulse Oximetry 99 98 05/19/21 23:11 05/20/21 04:00 05/20/21 08:00 Temperature 36.8 C 36.4 C L 37.0 C Pulse Rate 122 H 86 91 Respiratory Rate 18 16 18 Blood Pressure 120/68 149/94 H 151/91 H Pulse Oximetry 95 100 99 Intake/Output Intake/Output: Intake & Output 05/17/21 05/18/21 05/19/21 05/20/21 23:59 23:59 23:59 22:59 Intake Total 271 693 8794 290 Output Total 1800 1900 4000 1250 Balance -1400 -1270 -120 -960 Meds/Results Medications: Active Medications Generic Name Dose Route Start Last Admin Trade Name Freq PRN Reason Stop Dose Admin Benztropine Mesylate 0.5 mg 05/13/21 09:00 05/13/21 11:25 Benztropine Mesylate 0.5 Mg Tablet PO Not Given BID MILLIE Enoxaparin Sodium 40 mg 05/13/21 09:00 05/20/21 08:36 Enoxaparin 40 Mg/0.4 Ml Syringe SUB-Q 40 mg DAILY MILLIE Administration Haloperidol 10 mg 05/13/21 21:00 Haloperidol 5 Mg Tablet PO 06/12/21 20:59 HS MILLIE Hydralazine HCl 20 mg 05/15/21 20:30 05/19/21 12:30 Hydralazine Hcl 20 Mg/Ml Vial IV PUSH 20 mg Q4HR PRN Administration Blood Pressure - High Levetiracetam 1,000 mg in 100 mls @ 400 mls/hr 05/13/21 11:25 05/20/21 08:36 Keppra Iv IVPB 400 mls/hr Q12HR MILLIE Administration Lamotrigine 300
--- NOTE | 2021-05-20 11:46 | PM.IMPN ---
Progress Note: A&P Assessment and Plan (1) Encephalopathy due to metabolic factor or toxin: Status: Acute Assessment and Plan: Encephalopathy could be related to sepsis, hyponatremia -CT scan of the brain did not show any acute intracranial processes -she is improving. I am not sure what is her baseline is but she is awake alert and follows commands. She is partially oriented but does answer questions seems to be improvement over her presentation. - Continue to avoid sedatives Discussed with her mother. Will need to start her back on her antipsychotics slowly Hyponatremia likely due to psychogenic polydipsia likely needs inpatient psychiatry treatment. And/or long-term care (2) Hyponatremia: Code(s): E87.1 - Hypo-osmolality and hyponatremia Status: Acute Assessment and Plan: Patient with severe hyponatremia likely related to psychogenic polydipsia, according to the mother the patient drinks a lot of water daily basis and this has happened multiple times the past with having to be admitted to the hospital for hyponatremia -appreciate Nephrology following the patient and monitoring and managing the sodium levels -sodium levels gone up to 130 yesterday will repeat the levels and monitor Sodium level give down from 137 with open access to water conforming the diagnosis again Fluid restriction to 1000 cc a day added continue to monitor sodium level Sodium level 139 today allowing 2000 cc a day of fluid restriction (3) Seizure disorder: Onset Date: Unknown Code(s): G40.909 - Epilepsy, unspecified, not intractable, without status epilepticus Status: Acute Assessment and Plan: History of seizure disorders, patient on lamotrigine and Ativan at home -continue Keppra IV, continue p.r.n. Ativan - resumed lamotrigine (4) Schizo-affective schizophrenia, chronic condition with acute exacerbation: Onset Date: ~09/29/19 Code(s): F25.9 - Schizoaffective disorder, unspecified Status: Acute Assessment and Plan: Patient on p.o. Seroquel which is currently on hold, will restart once able to take p.o. Patient will be transferred to inpatient psychiatry once her medical issues are resolved voluntarily Will benefit from inpatient psychiatry treatment Resumed Seroquel as she is able to take p.o. now and monitor sodium level (5) Fever: Qualifiers: Fever type: unspecified Qualified Code(s): R50.9 - Fever, unspecified Code(s): R50.9 - Fever, unspecified Status: Acute Assessment and Plan: Patient febrile, likely related to seizures, could be also related to aspiration pneumonitis -05/13/2021: Blood cultures x2 negative -DC vancomycin but continue Zosyn at this time. will continue for 7 days. I will change antibiotics to p.o. once patient consistently starts taking her p.o. medications (6) Electrolyte abnormality: Code(s): E87.8 - Other disorders of electrolyte and fluid balance, not elsewhere classified Status: Acute Assessment and Plan: Replace low potassium and phosphate (7) Elevated creatine kinase level: Code(s): R74.8 - Abnormal levels of other serum enzymes Status: Acute Assessment and Plan: Patient has mild rhabdomyolysis on presentation which could be from seizures and hyponatremia Fluid management has been conservative due to hyponatremia to avoid significant shift since sodium Monitor renal function (8) Dysphagia: Code(s): R13.10 - Dysphagia, unspecified Status: Acute Assessment and Plan: partly secondary to encephalopathy and partly lack of cooperation with by patient. Discussed by previous physician regarding the importance of nutrition and taking her pills in timely fashion. She remains NPO and will go for modified barium swallow test for further evaluation. Passed modified barium swallow and now on diet Additional Plan Code status: Full code DVT prophylaxis -Lovenox miller
[2021-05-20 11:57] LABS: Sodium 135 mmol/L (137-145)
--- NOTE | 2021-05-20 13:28 | PCOTNOTE ---
Attempted to see patient for skilled OT session at this time. Patient attempted to get out of bed upon MCCORMACK's entry and was easily redirected to stay in bed with no issues. Patient agreeable at first to complete Isak UE exercises, but then declined when beginning education. Patient declined ADL tasks at this time. Will attempt a second trial to see patient at a later time. Will continue OT per POC.
[2021-05-20 14:00] VITALS: BP 156/90; PULSE 112; RESP 18; TEMP 37.4; O2SAT 98
[2021-05-20 18:25] LABS: Sodium 138 mmol/L (137-145)
[2021-05-20] MEDS: QUEtiapine FUMARATE 100 MG TABLET 400 MG PO (21:29)
[2021-05-20 22:00] VITALS: BP 144/83; PULSE 95; RESP 18; TEMP 36.9; O2SAT 99
[2021-05-21 05:55] VITALS: BP 124/75; PULSE 75; RESP 14; TEMP 36.3; O2SAT 100
[2021-05-21] MEDS: SALINE LOCK FLUSH 10 ML IV PUSH ×3 (05:55→22:32)
[2021-05-21 07:09] LABS: Basophils Percent Auto 0.4 % (0.2-1.2); Eosinophils Absolute Auto 0.1 K/mm3 (0-0.3); Eosinophils Percent Auto 0.6 % (0-4.4); Hemoglobin 11.6 g/dL (12.0-15.0); Immature Granulocyte Absolute 0.07 K/mm3 (0.00-0.031); Immature Granulocyte Percent A 0.7 % (0-0.5); Lymphocytes Absolute Auto 1.67 K/mm3 (0.9-3.2); Lymphocytes Percent Auto 17.6 % (18.3-44.2); Mean Corpuscular HGB Conc 33.1 g/dl (32-36); Mean Corpuscular Hemoglobin 31.4 pg (26-34); Mean Corpuscular Volume 94.6 fl (80-100); Mean Platelet Volume 8.9 fl (7.4-10.4); Monocytes Absolute Auto 0.8 K/mm3 (0.1-0.6); Monocytes Percent Auto 8.6 % (2.6-8.5); Neutrophils Absolute Auto 6.9 K/mm3 (1.3-6.7); Neutrophils Percent Auto 72.1 % (45.5-73.1); Platelet Count Result 246 k/mm3 (150-375); Red Cell Distribution Width 13.4 % (11.5-14.5); White Blood Count 9.5 K/mm3 (4.5-10.0)
[2021-05-21 07:21] LABS: Albumin Level 3.9 g/dL (3.5-5.1); Anion Gap 8 mmol/L (8-16); Blood Urea Nitrogen 9 mg/dL (7-17); Calcium 9.5 mg/dL (8.4-10.2); Carbon Dioxide 29 mmol/L (22-30); Chloride 103 mmol/L (98-107); Estimated CRCL calculation 59 ml/min; Estimated Glomerular Filt Rate 54; Glucose 96 mg/dL (65-110); Phosphorus 4.4 mg/dL (2.5-4.5); Potassium 3.4 mmol/L (3.4-5.0); Sodium 140 mmol/L (137-145)
[2021-05-21] MEDS: levETIRAcetam 1000MG/NACL100ML 1,000 MG/100 ML BAG 400 MG IVPB ×2 (09:32→22:35)
[2021-05-21] MEDS: QUEtiapine FUMARATE 100 MG TABLET 200 MG PO (09:33)
[2021-05-21] MEDS: CHOLECALCIFEROL 1,000 UNITS TABLET 1000 UNITS PO ×2 (09:33→17:25)
[2021-05-21] MEDS: ENOXAPARIN 40 MG/0.4 ML SYRINGE SUB-Q (09:33)
[2021-05-21] MEDS: lamoTRIgine 100 MG TABLET 300 MG PO (09:33)
[2021-05-21] MEDS: PANTOPRAZOLE SODIUM IV 40 MG VIAL IV PUSH (09:34)
--- NOTE | 2021-05-21 13:31 | PCNFU ---
Nutrition Follow-Up Complete: Inadequate oral intake related to mental status as evidenced by NPO x 3 days. Goal: Patient to meet estimated nutritional needs. Patient is progress towards goal. We will continue current goal. Pt current nutrition is Soft and Bite Sized, Level 6 with 2000 ml FR. Last recorded weight is 76.6 kg, down from 78.4 kg on admit. Bowel Motility:+BM reported 05/20. Labs Reviewed:BUN 54, Hct 35.0,Hgb 11.6 Meds Noted:Lovenox, Lamictal, Seroquel, Protonix, Vit D. Skin: WNL Additional Notes: Nutrition follow up. Patient is tolerating oral diet with 2000 ml FR noted. 05/18-MBS performed recommending soft and bite sized, Level 6. Agree with diet orders. Follow up every 5 days.
[2021-05-21] MEDS: QUEtiapine FUMARATE 100 MG TABLET 300 MG PO (13:38)
[2021-05-21 14:05] VITALS: BP 155/103; PULSE 113; RESP 18; TEMP 36.6; O2SAT 100
--- NOTE | 2021-05-21 14:47 | PM.IMPN ---
Progress Note: A&P Assessment and Plan (1) Encephalopathy due to metabolic factor or toxin: Status: Acute Assessment and Plan: Encephalopathy could be related to sepsis, hyponatremia -CT scan of the brain did not show any acute intracranial processes -she is improving. I am not sure what is her baseline is but she is awake alert and follows commands. She is partially oriented but does answer questions seems to be improvement over her presentation. - Continue to avoid sedatives Discussed with her mother. Started back on her antipsychotics slowly Hyponatremia likely due to psychogenic polydipsia likely needs inpatient psychiatry treatment. And/or long-term care Discussed with her regular psychiatrist Dr. muñoz in [facility] and discuss the case with her. She advised me to speak with Dr. Torrez was on-call for inpatient psychiatry unit at [facility]. Discussed with Dr. Torrez and suggested referral to be sent which was done today on 05/21/2021. manager flight operations will review her records and will decide whether she can be accepted in inpatient psychiatry unit there. (2) Hyponatremia: Code(s): E87.1 - Hypo-osmolality and hyponatremia Status: Acute Assessment and Plan: Patient with severe hyponatremia likely related to psychogenic polydipsia, according to the mother the patient drinks a lot of water daily basis and this has happened multiple times the past with having to be admitted to the hospital for hyponatremia -appreciate Nephrology following the patient and monitoring and managing the sodium levels -sodium levels gone up to 130 yesterday will repeat the levels and monitor Sodium level give down from 137 with open access to water conforming the diagnosis again Fluid restriction to 1000 cc a day added continue to monitor sodium level Sodium level 139 today allowing 2000 cc a day of fluid restriction Sodium level stable today continue on 2000 cc of water restriction (3) Seizure disorder: Onset Date: Unknown Code(s): G40.909 - Epilepsy, unspecified, not intractable, without status epilepticus Status: Acute Assessment and Plan: History of seizure disorders, patient on lamotrigine and Ativan at home -continue Keppra IV, continue p.r.n. Ativan - resumed lamotrigine Will switch her Keppra to (4) Schizo-affective schizophrenia, chronic condition with acute exacerbation: Onset Date: ~09/29/19 Code(s): F25.9 - Schizoaffective disorder, unspecified Status: Acute Assessment and Plan: Patient on p.o. Seroquel which is currently on hold, will restart once able to take p.o. Patient will be transferred to inpatient psychiatry once her medical issues are resolved voluntarily Will benefit from inpatient psychiatry treatment Resumed Seroquel as she is able to take p.o. now and monitor sodium level (5) Fever: Qualifiers: Fever type: unspecified Qualified Code(s): R50.9 - Fever, unspecified Code(s): R50.9 - Fever, unspecified Status: Acute Assessment and Plan: Patient febrile, likely related to seizures, could be also related to aspiration pneumonitis -05/13/2021: Blood cultures x2 negative -DC vancomycin but continue Zosyn at this time. Finished antibiotic course (6) Electrolyte abnormality: Code(s): E87.8 - Other disorders of electrolyte and fluid balance, not elsewhere classified Status: Acute Assessment and Plan: Replace low potassium and phosphate (7) Elevated creatine kinase level: Code(s): R74.8 - Abnormal levels of other serum enzymes Status: Acute Assessment and Plan: Patient has mild rhabdomyolysis on presentation which could be from seizures and hyponatremia Fluid management has been conservative due to hyponatremia to avoid significant shift since sodium Monitor renal function (8) Dysphagia: Code(s): R13.10 - Dysphagia, unspecified Status: Acute As
--- NOTE | 2021-05-21 17:28 | PM.PNNEP ---
Progress Note: A&P Assessment and Plan (1) Hyponatremia: Code(s): E87.1 - Hypo-osmolality and hyponatremia Status: Acute Assessment and Plan: due to psychogenic polydipsia control of sodium has been difficult since admission due to autocorrection sodium stable in the last 24 hours (change in sodium kept in the range of 6 - 8mmol/L in 24 hours continue fluid restriction at this time -- maybe able to back off depending on trend of sodium level (2) Encephalopathy due to metabolic factor or toxin: Status: Acute Assessment and Plan: clinically better -- back to baseline(?) (3) Elevated creatine kinase level: Code(s): R74.8 - Abnormal levels of other serum enzymes Status: Acute Assessment and Plan: resolving continue supportive therapy (4) Dementia associated with other underlying disease with behavioral disturbance: Onset Date: Unknown Code(s): F02.81 - Dementia in other diseases classified elsewhere with behavioral disturbance Status: Chronic Assessment and Plan: chronic issue at baseline (5) Schizo-affective schizophrenia, chronic condition with acute exacerbation: Onset Date: ~09/29/19 Code(s): F25.9 - Schizoaffective disorder, unspecified Status: Acute Assessment and Plan: continue home medication regimen Will continue to follow. Subjective Date/time seen: 05/21/21 17:28 Chart reviewed -- assuming care from Dr. Locke; no apparent distress noted at this time; more conversant/oriented today as per nursing; no other acute complaints conveyed; no issues/events overnight or earlier this morning. Exam Narrative: General: WD/WN female in NAD Heart: normal S1 and S2; no rub Lungs: clear to auscultation Abdomen: soft, nontender, nondistended, positive bowel sounds Extremities: no cyanosis or clubbing; no edema Skin: warm and dry Objective Data Vital Signs Vital Signs: Vital Signs Temp Pulse Resp BP Pulse Ox 05/21/21 14:05 36.6 C 113 H 18 155/103 H 100 05/21/21 05:55 36.3 C L 75 14 124/75 100 05/20/21 22:00 36.9 C 95 18 144/83 H 99 Intake/Output Intake/Output: Intake & Output 05/19/21 05/20/21 05/20/21 05/21/21 00:59 00:59 23:59 23:59 Intake Total 600 Output Total 975 Balance -375 Meds/Results Medications: Active Medications Generic Name Dose Route Start Last Admin Trade Name Freq PRN Reason Stop Dose Admin Benztropine Mesylate 0.5 mg 05/13/21 09:00 05/13/21 11:25 Benztropine Mesylate 0.5 Mg Tablet PO Not Given BID MILLIE Enoxaparin Sodium 40 mg 05/13/21 09:00 05/21/21 09:33 Enoxaparin 40 Mg/0.4 Ml Syringe SUB-Q 40 mg DAILY MILLIE Administration Haloperidol 10 mg 05/13/21 21:00 Haloperidol 5 Mg Tablet PO 06/12/21 20:59 HS MILLIE Hydralazine HCl 20 mg 05/15/21 20:30 05/19/21 12:30 Hydralazine Hcl 20 Mg/Ml Vial IV PUSH 20 mg Q4HR PRN Administration Blood Pressure - High Lamotrigine 300 mg 05/13/21 09:00 05/21/21 09:33 Lamotrigine 100 Mg Tablet PO 300 mg DAILY MILLIE Administration Levetiracetam 1,000 mg 05/21/21 21:00 Levetiracetam 500 Mg Tablet PO Q12HR MILLIE Lorazepam 1.5 mg 05/13/21 09:00 05/13/21 11:26 Lorazepam (*Crx) 0.5 Mg Tablet PO Not Given BID MILLIE Lorazepam 2 mg 05/13/21 21:00 Lorazepam (*Crx) 1 Mg Tablet PO HS MILLIE Lorazepam 0.5 mg 05/13/21 12:28 05/21/21 18:26 Lorazepam Inj (*Crx) 2 Mg/Ml Vial IV PUSH 0.5 mg Q4H PRN Administration Anxiety Ondansetron HCl 4 mg 05/13/21 01:18 05/15/21 21:36 Ondansetron Inj 4 Mg/2 Ml Vial IV PUSH 4 mg Q6H PRN Administration Nausea And Vomiting Pantoprazole Sodium 40 mg 05/13/21 09:00 05/21/21 09:34 Pantoprazole Sodium Iv 40 Mg Vial IV PUSH 40 mg QAM MILLIE Administration Quetiapine Fumarate 200 mg 05/13/21 09:00 05/21/21 09:33 Quetiapine Fumarate 100 Mg Tablet PO 200 m
[2021-05-21] MEDS: LORazepam INJ (*CRX) 2 MG/ML VIAL 0.5 MG IV PUSH ×2 (18:26→22:32)
--- NOTE | 2021-05-21 18:32 | PC.NURSE ---
Patient agitated, shouting I want water and I didn't look at you and out of bed in the room. Pt had bowel movement and urinated in the toilet, complained of bleeding from period. Blood/stool got onto pts hand but she refused to wash. Ativan administered and will continue to monitor. Will help pt to clean her hands once she calms down.
[2021-05-21 22:00] VITALS: BP 142/83; PULSE 87; RESP 21; TEMP 36.5; O2SAT 100
[2021-05-22] MEDS: SALINE LOCK FLUSH 10 ML IV PUSH ×2 (05:02→21:01)
[2021-05-22] MEDS: LORazepam INJ (*CRX) 2 MG/ML VIAL 0.5 MG IV PUSH (05:03)
[2021-05-22 06:00] VITALS: BP 155/96; PULSE 93; RESP 16; TEMP 36.5; O2SAT 95
--- NOTE | 2021-05-22 06:37 | PC.NURSE ---
Pt refused am labs and pulled out midline. aware. Pt refusing to let nursing staff stick her for a new IV/labs at this time.
--- NOTE | 2021-05-22 08:04 | PC.NURSE ---
Patient refused to take her medications this morning. She stated just bring me a [place].
[2021-05-22] MEDS: OLANZapine 10 MG INJ VIAL 5 MG IM (08:38)
[2021-05-22] MEDS: WATER, STERILE FOR INJECTION 10 ML VIAL XX (08:40)
[2021-05-22] MEDS: LORazepam (*CRX) 0.5 MG TABLET 1.5 MG PO ×2 (08:51→17:40)
[2021-05-22] MEDS: QUEtiapine FUMARATE 100 MG TABLET 200 MG PO (08:51)
--- NOTE | 2021-05-22 11:08 | PM.PNNEP ---
Progress Note: A&P Assessment and Plan (1) Hyponatremia: Code(s): E87.1 - Hypo-osmolality and hyponatremia Status: Acute Assessment and Plan: due to psychogenic polydipsia control of sodium has been difficult since admission due to autocorrection sodium stable by yesterday's labs (change in sodium kept in the range of 6 - 8mmol/L in 24 hours) continue fluid restriction at this time -- maybe able to back off depending on trend of sodium level (2) Encephalopathy due to metabolic factor or toxin: Status: Acute Assessment and Plan: clinically better -- back to baseline(?) (3) Elevated creatine kinase level: Code(s): R74.8 - Abnormal levels of other serum enzymes Status: Acute Assessment and Plan: resolving continue supportive therapy (4) Dementia associated with other underlying disease with behavioral disturbance: Onset Date: Unknown Code(s): F02.81 - Dementia in other diseases classified elsewhere with behavioral disturbance Status: Chronic Assessment and Plan: chronic issue at baseline (5) Schizo-affective schizophrenia, chronic condition with acute exacerbation: Onset Date: ~09/29/19 Code(s): F25.9 - Schizoaffective disorder, unspecified Status: Acute Assessment and Plan: continue home medication regimen Will continue to follow. Subjective Date/time seen: 05/22/21 11:08 No labs this AM as patient has been refusing them; erratic behavior noted by nursing staff; no other acute issues/problem at voiced at this time. Exam Narrative: General: WD/WN female in NAD Heart: normal S1 and S2; no rub Lungs: clear to auscultation Abdomen: soft, nontender, nondistended, positive bowel sounds Extremities: no cyanosis or clubbing; no edema Skin: warm and intact Objective Data Vital Signs Vital Signs: Vital Signs Temp Pulse Resp BP Pulse Ox 05/22/21 06:00 36.5 C 93 16 155/96 H 95 05/21/21 22:00 36.5 C 87 21 H 142/83 H 100 05/21/21 14:05 36.6 C 113 H 18 155/103 H 100 Intake/Output Intake/Output: Intake & Output 05/20/21 05/20/21 05/21/21 05/22/21 00:59 23:59 23:59 23:59 Intake Total 700 380 Output Total 975 Balance -275 380 Meds/Results Medications: Active Medications Generic Name Dose Route Start Last Admin Trade Name Freq PRN Reason Stop Dose Admin Benztropine Mesylate 0.5 mg 05/13/21 09:00 05/22/21 08:12 Benztropine Mesylate 0.5 Mg Tablet PO Not Given BID MILLIE Enoxaparin Sodium 40 mg 05/13/21 09:00 05/22/21 08:12 Enoxaparin 40 Mg/0.4 Ml Syringe SUB-Q Not Given DAILY MILLIE Haloperidol 10 mg 05/13/21 21:00 05/21/21 20:17 Haloperidol 5 Mg Tablet PO 06/12/21 20:59 Not Given HS MILLIE Hydralazine HCl 20 mg 05/15/21 20:30 05/19/21 12:30 Hydralazine Hcl 20 Mg/Ml Vial IV PUSH 20 mg Q4HR PRN Administration Blood Pressure - High Lamotrigine 300 mg 05/13/21 09:00 05/22/21 08:12 Lamotrigine 100 Mg Tablet PO Not Given DAILY MILLIE Levetiracetam 1,000 mg 05/21/21 21:00 Levetiracetam 500 Mg Tablet PO Q12HR MILLIE Lorazepam 1.5 mg 05/13/21 09:00 05/22/21 08:51 Lorazepam (*Crx) 0.5 Mg Tablet PO 1.5 mg BID MILLIE Administration Lorazepam 2 mg 05/13/21 21:00 05/21/21 20:17 Lorazepam (*Crx) 1 Mg Tablet PO Not Given HS [facility] Lorazepam 0.5 mg 05/13/21 12:28 05/22/21 05:03 Lorazepam Inj (*Crx) 2 Mg/Ml Vial IV PUSH 0.5 mg Q4H PRN Administration Anxiety Ondansetron HCl 4 mg 05/13/21 01:18 05/15/21 21:36 Ondansetron Inj 4 Mg/2 Ml Vial IV PUSH 4 mg Q6H PRN Administration Nausea And Vomiting Pantoprazole Sodium 40 mg 05/13/21 09:00 05/22/21 08:13 Pantoprazole Sodium Iv 40 Mg Vial IV PUSH Not Given QAM [facility] Quetiapine Fumarate 200 mg 05/13/21 09:00 05/22/21 08:51 Quetiapine Fumarate 100 Mg Tablet PO 200 mg QAM MILLIE Administration Quetiapine F
[2021-05-22] MEDS: QUEtiapine FUMARATE 100 MG TABLET 300 MG PO (12:01)
--- NOTE | 2021-05-22 12:37 | PCOTNOTE ---
Patient is currently independent in room, completing all ADLs, functional mobility in room and hallways. No skilled OT is indicated at this time. Will discharge from skilled OT at this time.
--- NOTE | 2021-05-22 16:19 | PM.IMPN ---
Progress Note: A&P Assessment and Plan (1) Encephalopathy due to metabolic factor or toxin: Status: Acute Assessment and Plan: Encephalopathy could be related to sepsis, hyponatremia -CT scan of the brain did not show any acute intracranial processes -she is improving. I am not sure what is her baseline is but she is awake, alert and follows commands. She is partially oriented but does answer questions seems to be improvement over her presentation. 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 And/or long-term care The previous provider discussed with her regular psychiatrist Dr. muñoz in [facility] and discuss the case with her. She advised me to speak with Dr. Torrez was on-call for inpatient psychiatry unit at [facility]. Discussed with Dr. Torrez and suggested referral to be sent which was done on 05/21/2021. Care coordination has reached out to the inpatient psych facility who is still working on acceptance for possible ECT therapy which is what she has in the past when she had similar issues. At this time she is medically stable for transfer to an inpatient psych facility, we are waiting acceptance. (2) Hyponatremia: Code(s): E87.1 - Hypo-osmolality and hyponatremia Status: Acute Assessment and Plan: Patient with severe hyponatremia likely related to psychogenic polydipsia, according to the mother the patient drinks a lot of water daily basis and this has happened multiple times the past with having to be admitted to the hospital for hyponatremia -appreciate Nephrology following the patient and monitoring and managing the sodium levels -sodium levels are stable at 140 today. Fluid restriction at 2000 cc daily Continue monitoring. (3) Seizure disorder: Onset Date: Unknown Code(s): G40.909 - Epilepsy, unspecified, not intractable, without status epilepticus Status: Acute Assessment and Plan: History of seizure disorders, patient on lamotrigine and Ativan at home - patient pulled out her IV, switched Keppra to PO. Continue p.r.n. Ativan - resumed lamotrigine (4) Schizo-affective schizophrenia, chronic condition with acute exacerbation: Onset Date: ~09/29/19 Code(s): F25.9 - Schizoaffective disorder, unspecified Status: Acute Assessment and Plan: Patient on p.o. Seroquel and restarted. Patient will be transferred to inpatient psychiatry, she is medically stable. She needs further evaluation and medication adjustments. (5) Fever: Qualifiers: Fever type: unspecified Qualified Code(s): R50.9 - Fever, unspecified Code(s): R50.9 - Fever, unspecified Status: Acute Assessment and Plan: Patient febrile, likely related to seizures, could be also related to aspiration pneumonitis -05/13/2021: Blood cultures x2 negative -DC vancomycin - Finished IV Zosyn antibiotic course after 7 days. (6) Electrolyte abnormality: Code(s): E87.8 - Other disorders of electrolyte and fluid balance, not elsewhere classified Status: Acute Assessment and Plan: Replace low potassium and phosphate (7) Elevated creatine kinase level: Code(s): R74.8 - Abnormal levels of other serum enzymes Status: Acute Assessment and Plan: Patient has mild rhabdomyolysis on presentation which could be from seizures and hyponatremia Fluid management has been conservative due to hyponatremia to avoid significant shift since sodium Last CK on 05/16/21 was 1328 and trending down . (8) Dysphagia: Code(s): R13.10 - Dysphagia, unspecified Status: Acute Assessment and Plan: Partly secondary to encephalopathy and partly lack of cooperation with by patient. Passed Modified Barium Swallow. Eating without any issues. Additional Plan Code status: Full
[2021-05-22] MEDS: CHOLECALCIFEROL 1,000 UNITS TABLET 1000 UNITS PO (17:40)
[2021-05-22] MEDS: BENZTROPINE MESYLATE 0.5 MG TABLET PO (17:40)
[2021-05-22 20:00] VITALS: PULSE 90; RESP 18; O2SAT 100
[2021-05-22 20:57] VITALS: BP 124/85; PULSE 90; RESP 18; TEMP 37; O2SAT 100
[2021-05-22] MEDS: QUEtiapine FUMARATE 100 MG TABLET 400 MG PO (20:59)
[2021-05-22] MEDS: LORazepam (*CRX) 1 MG TABLET 2 MG PO (20:59)
[2021-05-22] MEDS: HALOPERIDOL 5 MG TABLET 10 MG PO (21:00)
[2021-05-22] MEDS: levETIRAcetam 500 MG TABLET 1000 MG PO (21:00)
[2021-05-23 05:04] VITALS: BP 135/88; PULSE 96; RESP 20; TEMP 36.8; O2SAT 98
[2021-05-23] MEDS: SALINE LOCK FLUSH 10 ML IV PUSH (06:19)
[2021-05-23] MEDS: lamoTRIgine 100 MG TABLET 300 MG PO (08:36)
[2021-05-23] MEDS: LORazepam (*CRX) 0.5 MG TABLET 1.5 MG PO ×2 (08:36→16:51)
[2021-05-23] MEDS: CHOLECALCIFEROL 1,000 UNITS TABLET 1000 UNITS PO ×2 (08:36→16:50)
[2021-05-23] MEDS: ENOXAPARIN 40 MG/0.4 ML SYRINGE SUB-Q (08:36)
[2021-05-23] MEDS: QUEtiapine FUMARATE 100 MG TABLET 200 MG PO (08:36)
[2021-05-23] MEDS: levETIRAcetam 500 MG TABLET 1000 MG PO ×2 (08:37→20:25)
[2021-05-23] MEDS: BENZTROPINE MESYLATE 0.5 MG TABLET PO ×2 (08:37→16:50)
[2021-05-23] MEDS: QUEtiapine FUMARATE 100 MG TABLET 300 MG PO (12:15)
[2021-05-23 14:15] VITALS: BP 157/107; PULSE 98; RESP 18; TEMP 36.1; O2SAT 100
[2021-05-23 14:50] VITALS: BP 126/83; PULSE 97; RESP 16; O2SAT 99
--- NOTE | 2021-05-23 14:55 | PM.IMPN ---
Progress Note: A&P Assessment and Plan (1) Encephalopathy due to metabolic factor or toxin: Status: Acute Assessment and Plan: Encephalopathy could be related to sepsis, hyponatremia -CT scan of the brain did not show any acute intracranial processes -she is improving. I am not sure what is her baseline is but she is awake, alert and follows commands. She is partially oriented but does answer questions seems to be improvement over her presentation. 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 And/or long-term care The previous provider discussed with her regular psychiatrist Dr. muñoz in [facility] and discuss the case with her. Then previous provider spoke with Dr. Torrez was on-call for inpatient psychiatry unit at [facility] and suggested referral to be sent which was done on 05/21/2021. Care coordination has reached out to the inpatient psych facility who is still working on acceptance for possible ECT therapy which is what she has in the past when she had similar issues. At this time she is medically stable for transfer to an inpatient psych facility, we are waiting acceptance and bed availability. (2) Hyponatremia: Code(s): E87.1 - Hypo-osmolality and hyponatremia Status: Acute Assessment and Plan: Patient with severe hyponatremia likely related to psychogenic polydipsia, according to the mother the patient drinks a lot of water daily basis and this has happened multiple times the past with having to be admitted to the hospital for hyponatremia -Appreciate Nephrology following the patient and monitoring and managing the sodium levels -Sodium levels, patient has refused her lab draw yesterday and again today. - Continue Fluid restriction at 2000 cc daily Continue monitoring. (3) Seizure disorder: Onset Date: Unknown Code(s): G40.909 - Epilepsy, unspecified, not intractable, without status epilepticus Status: Acute Assessment and Plan: History of seizure disorders, patient on lamotrigine and Ativan at home - patient pulled out her IV, switched Keppra to PO. Continue p.r.n. Ativan - resumed lamotrigine (4) Schizo-affective schizophrenia, chronic condition with acute exacerbation: Onset Date: ~09/29/19 Code(s): F25.9 - Schizoaffective disorder, unspecified Status: Acute Assessment and Plan: Patient on p.o. Seroquel and restarted. Patient will be transferred to inpatient psychiatry, she is medically stable. She needs further evaluation and medication adjustments. (5) Fever: Qualifiers: Fever type: unspecified Qualified Code(s): R50.9 - Fever, unspecified Code(s): R50.9 - Fever, unspecified Status: Acute Assessment and Plan: Patient febrile, likely related to seizures, could be also related to aspiration pneumonitis -05/13/2021: Blood cultures x2 negative -DC vancomycin - Finished IV Zosyn antibiotic course after 7 days. (6) Electrolyte abnormality: Code(s): E87.8 - Other disorders of electrolyte and fluid balance, not elsewhere classified Status: Acute Assessment and Plan: Replace low potassium and phosphate (7) Elevated creatine kinase level: Code(s): R74.8 - Abnormal levels of other serum enzymes Status: Acute Assessment and Plan: Patient has mild rhabdomyolysis on presentation which could be from seizures and hyponatremia Fluid management has been conservative due to hyponatremia to avoid significant shift since sodium Last CK on 05/16/21 was 1328 and trending down. (8) Dysphagia: Code(s): R13.10 - Dysphagia, unspecified Status: Acute Assessment and Plan: Partly secondary to encephalopathy and partly lack of cooperation with by patient. Passed Modified Barium Swallow. Eating without
--- NOTE | 2021-05-23 16:18 | PM.PNNEP ---
Progress Note: A&P Assessment and Plan (1) Hyponatremia: Code(s): E87.1 - Hypo-osmolality and hyponatremia Status: Acute Assessment and Plan: due to psychogenic polydipsia control of sodium has been difficult since admission due to autocorrection sodium stable by most recent labs (change in sodium kept in the range of 6 - 8mmol/L in 24 hours) - however, patient refusing blood draws for the last 48 hours so unclear what her sodium is now.... continue fluid restriction at this time -- maybe able to back off depending on trend of sodium level (2) Encephalopathy due to metabolic factor or toxin: Status: Acute Assessment and Plan: clinically better -- back to baseline(?) (3) Elevated creatine kinase level: Code(s): R74.8 - Abnormal levels of other serum enzymes Status: Acute Assessment and Plan: resolving continue supportive therapy (4) Dementia associated with other underlying disease with behavioral disturbance: Onset Date: Unknown Code(s): F02.81 - Dementia in other diseases classified elsewhere with behavioral disturbance Status: Chronic Assessment and Plan: chronic issue at baseline (5) Schizo-affective schizophrenia, chronic condition with acute exacerbation: Onset Date: ~09/29/19 Code(s): F25.9 - Schizoaffective disorder, unspecified Status: Acute Assessment and Plan: continue home medication regimen Will continue to follow. Subjective Date/time seen: 05/23/21 16:18 Continues to refuse AM labs despite efforts to convince her to get them done (by both her parents and nursing); some behavior issues noted by nursing (as patient is anxious to leave the hospital); no other apparent issues noted at this time. Exam Narrative: General: WD/WN female in NAD Heart: normal S1 and S2; no rub Lungs: clear to auscultation Abdomen: soft, nontender, nondistended, positive bowel sounds Extremities: no cyanosis or clubbing; no edema Skin: no rash or nodules Objective Data Vital Signs Vital Signs: Vital Signs Temp Pulse Resp BP Pulse Ox 05/23/21 14:50 97 16 126/83 99 05/23/21 14:15 36.1 C L 98 18 157/107 H 100 05/23/21 05:04 36.8 C 96 20 135/88 98 05/22/21 20:57 37.0 C 90 18 124/85 100 05/22/21 20:00 90 18 100 Intake/Output Intake/Output: Intake & Output 05/20/21 05/21/21 05/22/21 05/23/21 23:59 23:59 23:59 23:59 Intake Total 700 1740 1220 Output Total 975 Balance -275 1740 1220 Meds/Results Medications: Active Medications Generic Name Dose Route Start Last Admin Trade Name Freq PRN Reason Stop Dose Admin Benztropine Mesylate 0.5 mg 05/13/21 09:00 05/23/21 16:50 Benztropine Mesylate 0.5 Mg Tablet PO 0.5 mg BID MILLIE Administration Enoxaparin Sodium 40 mg 05/13/21 09:00 05/23/21 08:36 Enoxaparin 40 Mg/0.4 Ml Syringe SUB-Q 40 mg DAILY MILLIE Administration Haloperidol 10 mg 05/13/21 21:00 05/22/21 21:00 Haloperidol 5 Mg Tablet PO 06/12/21 20:59 10 mg HS MILLIE Administration Hydralazine HCl 20 mg 05/15/21 20:30 05/19/21 12:30 Hydralazine Hcl 20 Mg/Ml Vial IV PUSH 20 mg Q4HR PRN Administration Blood Pressure - High Lamotrigine 300 mg 05/13/21 09:00 05/23/21 08:36 Lamotrigine 100 Mg Tablet PO 300 mg DAILY MILLIE Administration Levetiracetam 1,000 mg 05/21/21 21:00 05/23/21 08:37 Levetiracetam 500 Mg Tablet PO 1,000 mg Q12HR MILLIE Administration Lorazepam 1.5 mg 05/13/21 09:00 05/23/21 16:51 Lorazepam (*Crx) 0.5 Mg Tablet PO 1.5 mg BID MILLIE Administration Lorazepam 2 mg 05/13/21 21:00 05/22/21 20:59 Lorazepam (*Crx) 1 Mg Tablet PO 2 mg HS MILLIE Administration Miscellaneous Information 1 each 05/22/21 00:01 Lorazepam Order Will 05/23 If Not Renewed XX 06/21/21 00:00 CLARIFY MILLIE Ondansetron HCl 4 mg 05/13/21 01:18 05/15/21 21:36 Ond
[2021-05-23 20:00] VITALS: PULSE 92; RESP 18; O2SAT 98
[2021-05-23 20:15] VITALS: BP 147/80; PULSE 92; RESP 18; TEMP 36.5; O2SAT 98
[2021-05-23] MEDS: LORazepam (*CRX) 1 MG TABLET 2 MG PO (20:24)
[2021-05-23] MEDS: HALOPERIDOL 5 MG TABLET 10 MG PO (20:25)
[2021-05-23] MEDS: QUEtiapine FUMARATE 100 MG TABLET 400 MG PO (20:25)
[2021-05-23 22:00] VITALS: BP 136/78; PULSE 92; RESP 18; TEMP 36.7; O2SAT 98
[2021-05-24 05:55] VITALS: BP 129/82; PULSE 102; RESP 18; TEMP 37.6; O2SAT 98
[2021-05-24] MEDS: LORazepam (*CRX) 0.5 MG TABLET 1.5 MG PO (08:12)
[2021-05-24] MEDS: BENZTROPINE MESYLATE 0.5 MG TABLET PO (08:14)
[2021-05-24] MEDS: lamoTRIgine 100 MG TABLET 300 MG PO (08:14)
[2021-05-24] MEDS: CHOLECALCIFEROL 1,000 UNITS TABLET 1000 UNITS PO (08:15)
[2021-05-24] MEDS: levETIRAcetam 500 MG TABLET 1000 MG PO (08:15)
[2021-05-24 08:16] VITALS: RESP 18; O2SAT 98
[2021-05-24] MEDS: QUEtiapine FUMARATE 100 MG TABLET 200 MG PO (08:16)
[2021-05-24 11:28] LABS: Hematocrit 35.3 % (37.0-47.0); Hemoglobin 11.6 g/dL (12.0-15.0); Mean Corpuscular HGB Conc 32.9 g/dl (32-36); Mean Corpuscular Hemoglobin 31.1 pg (26-34); Mean Corpuscular Volume 94.6 fl (80-100); Platelet Count Result 314 k/mm3 (150-375); Red Blood Count 3.73 M/mm3 (4.2-5.4); Red Cell Distribution Width 13.2 % (11.5-14.5); White Blood Count 8.9 K/mm3 (4.5-10.0)
[2021-05-24 11:42] LABS: Albumin Level 4.5 g/dL (3.5-5.1); Anion Gap 11 mmol/L (8-16); Blood Urea Nitrogen 9 mg/dL (7-17); Carbon Dioxide 28 mmol/L (22-30); Chloride 103 mmol/L (98-107); Estimated CRCL calculation 65 ml/min; Estimated Glomerular Filt Rate 60; Glucose 103 mg/dL (65-110); Magnesium 2.2 mg/dL (1.6-2.3); Phosphorus 3.8 mg/dL (2.5-4.5); Potassium 3.6 mmol/L (3.4-5.0); Sodium 142 mmol/L (137-145)
[2021-05-24] MEDS: QUEtiapine FUMARATE 100 MG TABLET 300 MG PO (12:16)
--- NOTE | 2021-05-24 13:30 | PM.DS ---
DS: Admitting Diagnosis Discharge Date 05/24/21 Admitting Diagnosis Seizure/Low Sodium DS: Discharge Diagnosis Discharge Diagnosis (1) Encephalopathy due to metabolic factor or toxin: Status: Acute Assessment and Plan: Patient is a 45-year-old woman with a history of bipolar, schizoaffective disorder, frontotemporal dementia, potomania who presented to the emergency room after the patient was found to have a seizure by her mother at home. The patient has a long psychiatric history and seen at the [facility] over 1 year ago for a long workup and evaluation. They believe she has frontal temporal dementia and at that time she was drinking excessive amounts of fluids. She had ECT therapy per court order that completed in November 2020. She has been closely monitored by her psychiatrist since then and the patient's mother states recently she has been increasing her drinking habits. The mother has tried to help control this but the patient has not been listening. The mother states that she drank about 6 L of fluids within normal few hours prior to her seizure activity. Patient was brought to the emergency room for further evaluation and found her sodium to be 110. The patient was transferred to our facility for close monitoring of her sodium level, admitted to the ICU and as needed medications for her psychiatric disorders. She had to be closely monitoring with frequent sodium checks and DDAVP and D5W per Nephrology. Over several days her sodium improved and she was brought out of the ICU. Further workup with CT scan of the brain did not show any acute intracranial processes. She was slowly started back on her antipsychotics and continued with fluid restrictions. Her sodium remain within normal limits for the last few days. The previous provider had called her regular psychiatrist Dr. Peña in [facility] and discuss the case with her. Then spoke with Dr. Torrez was on-call for inpatient psychiatry unit at [facility] and suggested referral to be sent which was done on 05/21/2021. Care coordination has reached out to the inpatient psych facility daily for 4 days and they told us that they do not have any bed availability and they will not review her chart for acceptance until a bed is available. The patient is otherwise medically stable at this time. I spoke with the patient's mother in length who understands that she needs further psychiatric help but this can also be completed as an outpatient after discharge. At this time I have no reason to continue keeping her urine the hospital waiting for daily updates from a psychiatric facility who may or may not end up accepting her. I told the patient and her mother of reasons to come back to the hospital and emergency room. Trying to limit her fluid intake to prevent hyponatremia and seizure activity. They will be in close contact with her psychiatrist for outpatient follow-up. Follow-up with primary care doctor 1 week for further evaluation. The patient and daughter understand agree with the plan all questions answered. I did not continue her on Keppra because of the fact that we believe her seizure was secondary to her low sodium and increased fluid intake. (2) Hyponatremia: Code(s): E87.1 - Hypo-osmolality and hyponatremia Status: Acute (3) Seizure disorder: Onset Date: Unknown Code(s): G40.909 - Epilepsy, unspecified, not intractable, without status epilepticus Status: Acute (4) Schizo-affective schizophrenia, chronic condition with acute exacerbation: Onset Date: ~09/29/19 Code(s): F25.9 - Schizoaffective disorder, unspecified Status: Acute (5) Fever: Qualifiers: Fever type: unspecified Qualified Code(s): R50.9 - Fever, unspecified Code(s): R50.9 - Fever, unspecified Status: Acute (6) Electrolyte abnormality: Code(s): E87.8 - Other disorders of electrolyte and fluid balance, not e
[2021-05-24 13:35] VITALS: BP 153/95; PULSE 115; RESP 20; TEMP 36.4; O2SAT 99
[2021-05-24 14:03] VITALS: BP 163/103; PULSE 105; RESP 18; TEMP 36.4; O2SAT 100
== END 2021-05-24 14:25 | disposition home or self-care (01) | DRG 640 ==
LOC: ANHICU 05-16 09:55 → ANH3MED 05-20 22:32 → ANHICU 05-25 12:39 → ANHIMU 05-25 12:39
PROVIDERS: Internal Medicine; Internal Medicine Nephrology; Admitting Provider Internal Medicine; PCP Internal Medicine; Visit Provider Physician Assistant
DX: E87.1 Hypo-osmolality and hyponatremia (principal); G93.41 Metabolic encephalopathy; M62.82 Rhabdomyolysis; G40.909 Epilepsy, unspecified, not intractable, without status epilepticus; F25.9 Schizoaffective disorder, unspecified; E87.8 Other disorders of electrolyte and fluid balance, not elsewhere classified; F31.9 Bipolar disorder, unspecified; G31.09 Other frontotemporal neurocognitive disorder; F02.80 Dementia in other diseases classified elsewhere, unspecified severity, without behavioral disturbance, psychotic disturbance, mood disturbance, and anxiety; R63.1 Polydipsia; R13.10 Dysphagia, unspecified
CPT/HCPCS: 36415; 36569; 71045; 80048; 80053; 80069; 80202; 81001; 82533; 82550; 82570; 83605; 83735; 84100; 84155; 84156; 84165; 84295; 84300; 84443; 85025; 85027; 87040; 92526; 92610; 92611; 93005; 97110; 97163; 97165; 97530; 97535; A9270; C1751; C9113; J0131; J0360; J1630; J1650; J1953; J2060; J2405; J2543; J2597; J3370; J3475; J3480; J7060; J7070; J7131

== ENCOUNTER 2021-05-28 16:52 | Observation (INO) | payer MEDICARE, MEDICAID, SELFPAY ==
[2021-05-28 17:03] VITALS: BP 172/110; PULSE 90; RESP 20; TEMP 36.3; O2SAT 95
[2021-05-28] MEDS: SODIUM CHLORIDE 0.9% IV 500 ML 999 ML IV CONT (17:23)
[2021-05-28 17:27] VITALS: BP 170/90; PULSE 90; RESP 18; O2SAT 96
[2021-05-28 17:53] LABS: Alanine Aminotransferase 46 U/L (14-59); Albumin Level 3.1 g/dL (3.4-5.0); Alkaline Phosphatase 87 U/L (46-116); Anion Gap 10 mmol/L (8-16); Aspartate Amino Transferase 32 U/L (15-37); Bilirubin,Total 0.3 mg/dL (0.00-1.00); Blood Urea Nitrogen 16 mg/dL (7-18); Calcium 8.6 mg/dL (8.5-10.1); Carbon Dioxide 24 mmol/L (21-32); Chloride 86 mmol/L (98-108); Estimated CRCL calculation 84 ml/min; Estimated Glomerular Filt Rate > 60; Glucose 103 mg/dL (70-99); Osmolality Calculated 251 mOsm/kg (285-295); Potassium 4.2 mmol/L (3.5-5.1); Total Protein 6.2 g/dL (6.4-8.2)
[2021-05-28 17:56] LABS: Sodium 120 mmol/L (136-145)
--- NOTE | 2021-05-28 17:56 | PC.NURSE ---
Lab called with critical sodium of 120. Dr. Cordova and primary RN, Janeth notified.
--- NOTE | 2021-05-28 18:03 | PC.NURSE ---
mother (legal Guardian) told patient being admitted, Mother states, oh good you can take care of her, and I can sleep.
--- NOTE | 2021-05-28 18:04 | ED.GENADULT ---
HPI - General Adult General Chief complaint: Unspecified Stated complaint: possible low sodium Source: patient and family Mode of arrival: ambulatory History of Present Illness HPI narrative: this is a 45-year-old female with a history of primary polydipsia and schizophrenia and has been on a water restriction, but has had increased intake of water that typically leads to hyponatremia and seizure disorder. The patient currently is not confused answers questions appropriately but has a mild headache with no blurry vision no chest pain no shortness of breath no fever chills. Onset (ago): hour(s) Related Data Home Medications Medication Instructions Recorded Confirmed lamotrigine 300 mg PO DAILY 09/29/19 05/28/21 benztropine 0.5 mg PO BID 03/03/21 05/28/21 haloperidol 10 mg PO HS 03/03/21 05/28/21 lorazepam 1.5 mg PO BID 03/03/21 05/28/21 lorazepam 2 mg PO HS 03/03/21 05/28/21 cholecalciferol (vitamin D3) 25 mcg PO BID 05/12/21 05/28/21 [Vitamin D3] quetiapine 200 mg PO QAM 05/13/21 05/28/21 quetiapine 300 mg PO QNOON 05/13/21 05/28/21 quetiapine 400 mg PO HS 05/13/21 05/28/21 Allergies Allergy/AdvReac Type Severity Reaction Status Date / Time carbamazepine [From Tegretol] Allergy Unknown Verified 05/12/21 19:52 olanzapine [From Zyprexa] Allergy Unknown Verified 05/12/21 19:53 trifluoperazine Allergy Unknown Verified 05/12/21 19:53 Review of Systems Review of Systems: All systems reviewed & are unremarkable except as noted in HPI and below PMFSH Past Medical History Medical History Acetaminophen overdose Bipolar disorder Epilepsy Fever Generalized seizure History of pineal cyst Partial seizure Prediabetes Seizure disorder (Unknown) Suicidal ideation Family History Family History Mother Hypertension Father Diabetes mellitus Type 2, insulin dependent now Heart disease CABG x 3 in 1999 Neuropathy Agent orange exposure Sibling Diabetes mellitus Type I - childhood diagnosis Grandparent Ovarian cancer Grandparent , in her 90s Lewy body dementia Social History Social History Smoking status: Unknown if ever smoked Alcohol intake: unknown Substance use: unknown Gender identity (if verbalized by the patient): Female Spiritual care concerns: No Exam Const: General: cooperative HENMT: Head: normal to inspection Ears: hearing grossly normal bilaterally General nose exam: Normal external nose present Face and sinus: normal facial exam Mouth: Yes Normal oral and palatal mucosa present and Yes tongue normal Eyes: General: appearance normal, both eyes and all related structures Visual Mcgowan: normal visual mcgowan by confrontation Periorbital: periorbital findings normal Eyelids: eyelids normal Conjunctivae: conjunctivae normal Chest: Chest palpation & inspection: normal inspection of the chest and normal palpation of entire chest wall Resp: Effort & Inspection: normal respiratory effort and able to speak in complete sentences Cardio: Palpation: normal PMI Rate: regular rate Rhythm: regular rhythm GI: Inspection: normal to inspection Back/Spine/Pelvis: Back: no CVA tenderness Cervical Spine: normal cervical lordosis Skin: General skin exam: normal color and no rashes or lesions noted Neuro: General: oriented to person, oriented to place, oriented to time, patient oriented x3 and gait normal Psych: Appearance: grossly normal and well kempt Course Course Emergency Course: Sodium level reviewed with patient and family is 120 patient does have a history of seizure disorder with primary polydipsia, the patient receiving 500 mL of normal saline and will admit patient under close observation with a fluid restriction and 2% sodium. Vital Sign
[2021-05-28 18:34] VITALS: BP 171/90; PULSE 92; RESP 20; TEMP 36.6; O2SAT 95
[2021-05-28] MEDS: LORazepam INJ (*CRX) 2 MG/ML VIAL 0.5 MG IV PUSH (18:39)
[2021-05-28 19:07] VITALS: BP 170/90; PULSE 91; RESP 20; TEMP 36.6; O2SAT 95
[2021-05-28] MEDS: SODIUM CHLORIDE 3% 500 ML 50 ML IV CONT (19:22)
--- NOTE | 2021-05-28 19:29 | ADMGEN ---
This patient, Marisa Deleon, was admitted to 2nd Floor Room 206-1. Patient/family oriented to hospital policies and general routines including ID bracelet, bed and alarms, visiting hours, pain management, procedures, bathroom and other care routines, personal items, smoking policy, room service/diet, and visiting hours. Patient informed of fluid restriction. Information on how to activate the Rapid Response Team has been discussed. Patient/Family are encouraged to report perceived risks to care and to ask questions if they do not understand what they are told or what they should do.
--- NOTE | 2021-05-28 19:30 | PC.NURSE ---
Patient in bathroom in room drinking directly from faucet. redirected.
--- NOTE | 2021-05-28 19:50 | PC.NURSE ---
Patient's mother notified staff that patient had already taken all of HS meds.
[2021-05-28 20:00] VITALS: BP 138/92; PULSE 98; RESP 18; TEMP 36.6; O2SAT 98
[2021-05-28 20:10] VITALS: PULSE 89; RESP 16; O2SAT 98
--- NOTE | 2021-05-28 21:31 | PC.NURSE ---
Patient initially refused lab draw to check NA level. Convinced to allow.
[2021-05-28 21:34] VITALS: BMI 25.0
[2021-05-28 21:37] LABS: Sodium 136 mmol/L (136-145)
[2021-05-28] MEDS: SODIUM CHLORIDE 0.9% IV 1,000 ML 75 ML IV CONT (22:03)
[2021-05-29] VITALS: BP 146/92; PULSE 102; RESP 16; TEMP 37.1; O2SAT 95
--- NOTE | 2021-05-29 02:15 | PC.NURSE ---
Patient is not complying with fluid restriction. Patient caught cupping her hand under the bathroom faucet and drinking water several times during the shift. Educated patient on fluid restriction and the purpose. Patient verbalized understanding but refused to comply with the restriction. --Gloria Mae RN
--- NOTE | 2021-05-29 03:16 | PC.NURSE ---
Patient went into the bathroom. Returned to room and pulled her IV access in her left AC out. Attemted to restart IV. Patient refused IV placement. notified. --Kendra SOLIS
--- NOTE | 2021-05-29 05:01 | PC.NURSE ---
Patient refused staff from lab to obtain her labwork this morning. --Kendra SOLIS
--- NOTE | 2021-05-29 05:03 | PC.NURSE ---
Unable to assess patient Intake and output. She has made several (10 plus) trips to the bathroom. Patient is not complying with fluid restriction. She has been caught several time cupping her hand and drinking water from the faucet. --Kendra SOLIS
[2021-05-29 07:50] VITALS: BP 140/80; PULSE 104; RESP 18; TEMP 36.6; O2SAT 96
[2021-05-29] MEDS: BENZTROPINE MESYLATE 0.5 MG TABLET PO ×2 (08:27→20:50)
[2021-05-29] MEDS: LORazepam (*CRX) 0.5 MG TABLET 1.5 MG PO (08:27)
[2021-05-29] MEDS: lamoTRIgine 100 MG TABLET 300 MG PO (08:27)
[2021-05-29] MEDS: QUEtiapine FUMARATE 100 MG TABLET 200 MG PO (08:28)
[2021-05-29] MEDS: CHOLECALCIFEROL 1,000 UNITS TABLET 1000 UNITS PO ×2 (08:29→20:50)
--- NOTE | 2021-05-29 10:40 | PC.NURSE ---
Spoke with patients mother/guardian. This nurse asked patient mother to come up and speak with patient about care. Patients mother states she will come up to pick patient up when she is discharged.
--- NOTE | 2021-05-29 11:30 | PC.NURSE ---
Patient has been educated about fluid restriction. Patient states understanding but continues to drink from the sink at times. EXPLOSIVES ENGINEER Tong aware of patients noncompliance.
[2021-05-29] MEDS: QUEtiapine FUMARATE 100 MG TABLET 300 MG PO (13:06)
[2021-05-29] MEDS: DESMOPRESSIN ACETATE 0.1 MG TABLET 0.2 MG PO (13:06)
--- NOTE | 2021-05-29 14:14 | PM.IMHP ---
H&P: HPI History of Present Illness Date/Time: 05/29/21 14:14 this is a 45-year-old female who presented to our emergency department with complaints of a headache. Patient has a past medical history of Tylenol overdose, bipolar, epilepsy, fever, generalized seizures, history of pineal cyst, partial seizure, prediabetic, seizure disorder, and suicidal ideations. Patient is a poor historian to obtain information from medical records and patient's mother her guardian. After lab collection it was noted that patient sodium was 120. Patient was recently discharged from [facility] on 05/24/2021 for hyponatremia. Patient psychiatrist is at [facility] in [place] on the bed tear bed became a bit her sodium was not limits and she was discharged from [place]. Today while doing wound patient said that she was going to discharge I explained to her as well as her mother that if she discharge it would have to be AGAINST MEDICAL ADVICE. Patient has denied blood draws and or IV placement. She is taking her p.o. medication patient sodium. Was at 120 at 1800 and at 6:00 it was at 136. Patient was prescribed DDAVP 0.2 mg due to rapid increase in sodium. Patient refuses to let lab draw sodium level. After speaking with patient's mother her POA she explained that last week patient was at [facility] and was waiting on the bed and [facility] in [place] where her psychiatrist is suggested we call her to see if we can get her bed there. Call [place] spoke with Dr. Israel patient has been accepted her psychiatrist Dr. Julio is aware and agrees to accept. Once a bed becomes available she will transfer there sodium 120 potassium 4.2, BUN 16, creatinine 0.80, glucose 103, magnesium 2.2 patient will be admitted for hyponatremia transfer to [facility] in [place]. She does not have any complaints at this time she is, and is taking her p.o. medication. <YANET Brown - Last Filed: 05/29/21 14:30> Chief Complaint: Headache <YANET Brown - Last Filed: 05/29/21 14:30> Review of Systems Review of Systems: A 14 organ system Review of Systems was performed and pertinent positives included in the HPI, otherwise remaining ROS is negative. <YANET Brown - Last Filed: 05/29/21 14:30> [facility] Past Medical History Medical History: Medical History Acetaminophen overdose Bipolar disorder Epilepsy Fever Generalized seizure History of pineal cyst Partial seizure Prediabetes Seizure disorder (Unknown) Suicidal ideation <YANET Brown - Last Filed: 05/29/21 14:30> Family History Family History: Family History Mother Hypertension Father Diabetes mellitus Type 2, insulin dependent now Heart disease CABG x 3 in 1999 Neuropathy Agent orange exposure Sibling Diabetes mellitus Type I - childhood diagnosis Grandparent Ovarian cancer Grandparent , in her 90s Lewy body dementia <YANET Brown - Last Filed: 05/29/21 14:30> Social History Social History: Social History Smoking status: Unknown if ever smoked Alcohol intake: unknown Substance use: unknown Gender identity (if verbalized by the patient): Female Spiritual care concerns: No <YANET Brown - Last Filed: 05/29/21 14:30> Meds Home Medications and Allergies Home medications: Home Medications Medication Instructions Recorded Confirmed Type lamotrigine 300 mg PO DAILY 09/29/19 05/28/21 History benztropine 0.5 mg PO BID 03/03/21 05/28/21 History haloperidol 10 mg PO HS 03/03/21 05/28/21 History lorazepam 1.5 mg PO BID 03/03/21 05/28/21 History lorazepam 2 mg PO HS 03/03/21 05/28/21 History cholecalciferol (vitamin D
[2021-05-29 17:00] VITALS: BP 176/106; PULSE 113; RESP 18; TEMP 36.2; O2SAT 99
--- NOTE | 2021-05-29 17:30 | PC.NURSE ---
Addendum entered by Becca Wesley RN 05/29/21 18:22: Dr. Harrison notified of patient refusing any medication for blood pressure. N.O. received for clonidine if patient does agree to take medication. Original Note: Patients vital signs taken. B/P 180/110, verified manually. This nurse educated patient about normal blood pressure limits and risks of high blood pressure. Pt. verbally states understanding but refuses medication.
--- NOTE | 2021-05-29 17:55 | PC.NURSE ---
Dr. Harrison contacted about patient requesting eye drops. N.O. received.
[2021-05-29] MEDS: ARTIFICIAL TEARS OPHTH SOLN 15 ML BOTTLE 1 DROP EACH EYE (18:05)
--- NOTE | 2021-05-29 18:05 | PC.NURSE ---
Patient stating that she has a headache. Medication offered to help with headache pain, patient refused to take anything for pain.
[2021-05-29] MEDS: cloNIDine HCL 0.1 MG TABLET PO (20:44)
[2021-05-29] MEDS: HALOPERIDOL 1 MG TABLET 10 MG PO (20:50)
[2021-05-29] MEDS: QUEtiapine FUMARATE 100 MG TABLET 400 MG PO (20:51)
[2021-05-29] MEDS: LORazepam (*CRX) 1 MG TABLET 2 MG PO (20:51)
[2021-05-30] VITALS: BP 130/103; PULSE 100; RESP 18; TEMP 36.4; O2SAT 100
--- NOTE | 2021-05-30 05:42 | PC.NURSE ---
Patient has drank two cups of tea along with her water and has refused her labs.
[2021-05-30 08:00] VITALS: BP 160/106; PULSE 99; RESP 18; TEMP 36.2; O2SAT 99
--- NOTE | 2021-05-30 08:18 | PC.NURSE ---
Obtained pt's vital signs, explained to pt she has an elevated blood pressure and offered her prn med to help. Pt stated she didn't need it. I then told pt I would be back shortly with her morning medications to which she replied, I don't want them, I need my mom. Those aren't right, I can't remember what I take. I offered to call he mom for her and she adamantly refused. Pt continuing to ask for and consume large amounts of water after being educated on condition and need to reduce water intake.
--- NOTE | 2021-05-30 10:47 | PC.NURSE ---
Pt reminded that her sodium was low and she needs to slow down of water intake. She verbalized understanding.
--- NOTE | 2021-05-30 11:04 | P.PN_ITS ---
Progress Note: A&P Assessment and Plan (1) Acute hyponatremia: Code(s): E87.1 - Hypo-osmolality and hyponatremia <Tong Fischer HAL-C - Last Filed: 05/30/21 11:06> Status: Acute <Tong Fischer HAL-C - Last Filed: 05/30/21 11:06> Assessment and Plan: * Sodium 120>136, refusing lab draws * Patient received 3% NaCl in ED * Patient received DDAVP due to rapid sodium correction * Will start neurochecks * Patient refused to get lab draws or start IV * Ativan as needed ordered <Tong Fischer HAL-C - Last Filed: 05/30/21 11:06> (2) History of epilepsy: Code(s): Z86.69 - Personal history of other diseases of the nervous system and sense organs <Tong Fischer HAL-C - Last Filed: 05/30/21 11:06> Status: Acute <Tong Fischer YANET - Last Filed: 05/30/21 11:06> Assessment and Plan: * Ativan as needed ordered <Tong Fischer ARIESC - Last Filed: 05/30/21 11:06> (3) Dementia associated with other underlying disease with behavioral disturbance: Onset Date: Unknown <Tong Fischer ARIESC - Last Filed: 05/30/21 11:06> Code(s): F02.81 - Dementia in other diseases classified elsewhere with behavioral disturbance <Tong Fischer HAL-C - Last Filed: 05/30/21 11:06> Status: Chronic <Tong Fischer HAL-C - Last Filed: 05/30/21 11:06> (4) Schizo-affective schizophrenia, chronic condition with acute exacerbation: Onset Date: ~09/29/19 <Tong Fischer HAL-C - Last Filed: 05/30/21 11:06> Code(s): F25.9 - Schizoaffective disorder, unspecified <Tong Fischer HAL-C - Last Filed: 05/30/21 11:06> Status: Acute <Tong Fischer REGULATORY AFFAIRS MANAGER-C - Last Filed: 05/30/21 11:06> Assessment and Plan: * Continue home medication Seroquel and Haldol * Today refusing <YANET Brown - Last Filed: 05/30/21 11:06> Subjective Date/time seen: 05/30/21 11:04 this patient does not appear to be in any distress she continues to drink an excessive amount of water even after being educated by nurse in hospitalist. Patient also refuses all medication. Pressure is 160/106. She is also refusing any lab draws or IV access. She is not aggressive, or abusive. She has no complaints at this time she does not appear to be in any distress. Waiting on a bed at [facility] in [place] <YANET Brown - Last Filed: 05/30/21 11:06> Review of Systems Review of Systems: A 14 organ system Review of Systems was performed and pertinent positives included in the HPI, otherwise remaining ROS is negative. <YANET Brown - Last Filed: 05/30/21 11:06> Exam Narrative: GENERAL: Anxious in no apparent distress. HEAD: normocephalic, atraumatic. EYES: PERRL. Sclera clear/white. Vision is grossly intact. EARS: External ears normal, auditory canals clear and without drainage, TMs normal without perforation. Hearing grossly intact. NOSE: External nose normal with no obvious nasal discharge, nares without r edness, no rhinorrhea. THROAT: Mucous membranes moist, posterior pharynx clear. NECK: Neck supple, non-tender without lymphadenopathy, masses or thyromegaly. CARDIOVASCULAR: Regular rate and rhythm without murmurs, gallops, or rubs. RESPIRATORY: Clear to auscultation. Breath sounds equal bilaterally. No wheezes, rales, or rhonchi. GASTROINTESTINAL: Abdomen soft, non-tender, nondistended. Bowel sounds are active. No hepato-splenomegaly, or palpable masses. No guarding. SKIN: warm, intact with no suspicious lesions or rash, good texture and turgor. NEURO:
--- NOTE | 2021-05-30 11:04 | WPDPN ---
Progress Note: A&P Assessment and Plan (1) Acute hyponatremia: Code(s): E87.1 - Hypo-osmolality and hyponatremia <Tong FischerHALSusanJohanna - Last Filed: 05/30/21 11:06> Status: Acute <Tong Fischer SENIOR INTERNATIONAL TAX MANAGERSusanC - Last Filed: 05/30/21 11:06> Assessment and Plan: Sodium 120>136, refusing lab draws Patient received 3% NaCl in ED Patient received DDAVP due to rapid sodium correction Will start neurochecks Patient refused to get lab draws or start IV Ativan as needed ordered <Tong Fischer SENIOR INTERNATIONAL TAX MANAGER-C - Last Filed: 05/30/21 11:06> (2) History of epilepsy: Code(s): Z86.69 - Personal history of other diseases of the nervous system and sense organs <Tong FischerARIESC - Last Filed: 05/30/21 11:06> Status: Acute <Tong FischerHALSusanJohanna - Last Filed: 05/30/21 11:06> Assessment and Plan: Ativan as needed ordered <Tong FischerHALSusanJohanna - Last Filed: 05/30/21 11:06> (3) Dementia associated with other underlying disease with behavioral disturbance: Onset Date: Unknown <Tong FischerHALSusanJohanna - Last Filed: 05/30/21 11:06> Code(s): F02.81 - Dementia in other diseases classified elsewhere with behavioral disturbance <YANET Brown - Last Filed: 05/30/21 11:06> Status: Chronic <Tong LucioHAL BrownSusanJohanna - Last Filed: 05/30/21 11:06> (4) Schizo-affective schizophrenia, chronic condition with acute exacerbation: Onset Date: ~09/29/19 <Tong KhadijahYANET Brown - Last Filed: 05/30/21 11:06> Code(s): F25.9 - Schizoaffective disorder, unspecified <Tong KhadijahHAL Brown-C - Last Filed: 05/30/21 11:06> Status: Acute <Angelitobinh KhadijahYANET Brown - Last Filed: 05/30/21 11:06> Assessment and Plan: Continue home medication Seroquel and Haldol Today refusing <YANET Brown - Last Filed: 05/30/21 11:06> Subjective Date/time seen: 05/30/21 11:04 this patient does not appear to be in any distress she continues to drink an excessive amount of water even after being educated by nurse in hospitalist. Patient also refuses all medication. Pressure is 160/106. She is also refusing any lab draws or IV access. She is not aggressive, or abusive. She has no complaints at this time she does not appear to be in any distress. Waiting on a bed at [facility] in [place] <YANET Brown - Last Filed: 05/30/21 11:06> Review of Systems Review of Systems: A 14 organ system Review of Systems was performed and pertinent positives included in the HPI, otherwise remaining ROS is negative. <YANET Brown - Last Filed: 05/30/21 11:06> Exam Narrative: GENERAL: Anxious in no apparent distress. HEAD: normocephalic, atraumatic. EYES: PERRL. Sclera clear/white. Vision is grossly intact. EARS: External ears normal, auditory canals clear and without drainage, TMs normal without perforation. Hearing grossly intact. NOSE: External nose normal with no obvious nasal discharge, nares without redness, no rhinorrhea. THROAT: Mucous membranes moist, posterior pharynx clear. NECK: Neck supple, non-tender without lymphadenopathy, masses or thyromegaly. CARDIOVASCULAR: Regular rate and rhythm without murmurs, gallops, or rubs. RESPIRATORY: Clear to auscultation. Breath sounds equal bilaterally. No wheezes, rales, or rhonchi. GASTROINTESTINAL: Abdomen soft, non-tender, nondistended. Bowel sounds are active. No hepato-splenomegaly, or palpable masses. No guarding. SKIN: warm, intact with no suspicious lesions or rash, good texture and turgor. NEURO: awake, alert, and oriented to person, place and time. There were no obvious focal neurologic abnormalities. Steady gait EXTREMITIES: Normal range of motion. No edema. No calf tenderness. Negative Homans sign bilaterally. BACK: Nontender without deformity or crepitance. No flank tenderness. <Tong Fischer, SENIOR INTERNATIONAL TAX MANAGER-C - Last Filed:
--- NOTE | 2021-05-30 17:23 | PC.NURSE ---
Pt pacing around room, having conversations with herself, frequently she attempts to walk down the cervantes but is easily redirected to her room. Pt continues to drink excessive amounts of liquid including water despite being educated on her sodium levels earlier in the day. Pt still refusing medications and has refused her most recent set of vital signs.
--- NOTE | 2021-05-30 18:09 | PC.NURSE ---
Called [facility] access line. Spoke with Janeth. She said the pt is still on their list and she would likely know more about a bed after 1800.
[2021-05-30] MEDS: LORazepam (*CRX) 1 MG TABLET 2 MG PO (19:54)
[2021-05-30] MEDS: CHOLECALCIFEROL 1,000 UNITS TABLET 1000 UNITS PO (19:58)
[2021-05-30] MEDS: BENZTROPINE MESYLATE 0.5 MG TABLET PO (19:58)
[2021-05-30] MEDS: HALOPERIDOL 1 MG TABLET 10 MG PO (19:58)
[2021-05-30] MEDS: QUEtiapine FUMARATE 100 MG TABLET 400 MG PO (19:59)
[2021-05-30] MEDS: cloNIDine HCL 0.1 MG TABLET PO (19:59)
--- NOTE | 2021-05-30 20:19 | PC.NURSE ---
Patient is talking to self and responding, asking for water every couple of minutes. Patient did take meds and voices no c/o pain or discomfort.
[2021-05-30 23:35] VITALS: BP 201/118; PULSE 100; RESP 18; TEMP 36.2; O2SAT 95
--- NOTE | 2021-05-31 05:59 | PC.NURSE ---
Patient asking for water frequently, is taking water from the faucets in her room and drinking it, bp 140/103 this morning, is talking to herself at times.
[2021-05-31 07:25] VITALS: BP 154/112; PULSE 18; RESP 103; TEMP 36.8; O2SAT 96
[2021-05-31] MEDS: LORazepam (*CRX) 0.5 MG TABLET 1.5 MG PO (07:48)
[2021-05-31] MEDS: cloNIDine HCL 0.1 MG TABLET PO (07:48)
[2021-05-31] MEDS: CHOLECALCIFEROL 1,000 UNITS TABLET 1000 UNITS PO (07:48)
[2021-05-31] MEDS: lamoTRIgine 100 MG TABLET 300 MG PO (07:48)
[2021-05-31] MEDS: QUEtiapine FUMARATE 100 MG TABLET 200 MG PO (07:48)
[2021-05-31] MEDS: SODIUM CHLORIDE 1 GM TABLET PO (07:51)
[2021-05-31] MEDS: BENZTROPINE MESYLATE 0.5 MG TABLET PO (07:55)
[2021-05-31 08:10] VITALS: O2SAT 96
--- NOTE | 2021-05-31 09:00 | WPDPN ---
Progress Note: A&P Assessment and Plan (1) Acute hyponatremia: Code(s): E87.1 - Hypo-osmolality and hyponatremia Status: Acute Assessment and Plan: Sodium 120>136, refusing lab draws Patient received 3% NaCl in ED Patient received DDAVP due to rapid sodium correction Will start neurochecks Patient refused to get lab draws or start IV Ativan as needed ordered (2) History of epilepsy: Code(s): Z86.69 - Personal history of other diseases of the nervous system and sense organs Status: Acute Assessment and Plan: Ativan as needed ordered (3) Dementia associated with other underlying disease with behavioral disturbance: Onset Date: Unknown Code(s): F02.81 - Dementia in other diseases classified elsewhere with behavioral disturbance Status: Chronic (4) Schizo-affective schizophrenia, chronic condition with acute exacerbation: Onset Date: ~09/29/19 Code(s): F25.9 - Schizoaffective disorder, unspecified Status: Acute Assessment and Plan: Continue home medication Seroquel and Haldol on occasion patient does take medication (5) Elevated blood pressure reading: Code(s): R03.0 - Elevated blood-pressure reading, without diagnosis of hypertension Status: Acute Assessment and Plan: blood pressure elevated p.r.n. clonidine ordered Subjective Date/time seen: 05/31/21 09:00 patient does not appear to be in any distress. I explained to patient if she would allow us to draw labs and treat her she will be able to discharge otherwise she need to remain here until she gets a bed at [facility]. Patient originally agreed to allow us to draw labs but once lab entered her room she refused. patient did admit to her nurse that she is fearful of needles. call to [facility] still no beds available. patient does not appear to be in any distress at this time. Patient denies cp, sob, palpitation, diarrhea, constipation, lightheadness, headache, dizziness or chills and fevers. Review of Systems Review of Systems: A 14 organ system Review of Systems was performed and pertinent positives included in the HPI, otherwise Exam Narrative: GENERAL: Anxious in no apparent distress. HEAD: normocephalic, atraumatic. EYES: PERRL. Sclera clear/white. Vision is grossly intact. EARS: External ears normal, auditory canals clear and without drainage, TMs normal without perforation. Hearing grossly intact. NOSE: External nose normal with no obvious nasal discharge, nares without redness, no rhinorrhea. THROAT: Mucous membranes moist, posterior pharynx clear. NECK: Neck supple, non-tender without lymphadenopathy, masses or thyromegaly. CARDIOVASCULAR: Regular rate and rhythm without murmurs, gallops, or rubs. RESPIRATORY: Clear to auscultation. Breath sounds equal bilaterally. No wheezes, rales, or rhonchi. GASTROINTESTINAL: Abdomen soft, non-tender, nondistended. Bowel sounds are active. No hepato-splenomegaly, or palpable masses. No guarding. SKIN: warm, intact with no suspicious lesions or rash, good texture and turgor. NEURO: awake, alert, and oriented to person, place and time. There were no obvious focal neurologic abnormalities. Steady gait EXTREMITIES: Normal range of motion. No edema. No calf tenderness. Negative Homans sign bilaterally. BACK: Nontender without deformity or crepitance. No flank tenderness. Objective Data Vital Signs Vital Signs: Vital Signs - 24 hr 05/30/21 23:35 Temperature 97.2 F L Pulse Rate 100 Respiratory Rate 18 Blood Pressure 201/118 H Pulse Oximetry 95 Intake/Output Intake/Output: Intake & Output 05/28/21 05/29/21 05/30/21 05/31/21 23:59 23:59 23:59 23:59 Intake Total 600 1680 10839 500 Output Total 0 Balance 600 1680 60083 500 Meds/Results Medications: Active Medications Generic Name Dose Route Start Last Admin Trade Name Freq PRN Reason Stop Dose Admin Acetaminophen
--- NOTE | 2021-05-31 11:50 | PC.NURSE ---
Patients mother here to see patient. Mother discussed with patient the importance of getting her labs drawn. Patient agreed to get labs drawn after lunch.
--- NOTE | 2021-05-31 12:20 | PC.NURSE ---
Labs drawn by this nurse. Patient tolerated well.
[2021-05-31 12:43] LABS: Alanine Aminotransferase 44 U/L (14-59); Albumin Level 3.4 g/dL (3.4-5.0); Alkaline Phosphatase 106 U/L (46-116); Anion Gap 13 mmol/L (8-16); Aspartate Amino Transferase 29 U/L (15-37); Bilirubin,Total 0.2 mg/dL (0.00-1.00); Blood Urea Nitrogen 10 mg/dL (7-18); Calcium 9.1 mg/dL (8.5-10.1); Carbon Dioxide 20 mmol/L (21-32); Chloride 99 mmol/L (98-108); Estimated CRCL calculation 70 ml/min; Estimated Glomerular Filt Rate > 60; Glucose 155 mg/dL (70-99); Osmolality Calculated 276 mOsm/kg (285-295); Sodium 132 mmol/L (136-145); Total Protein 7.4 g/dL (6.4-8.2)
[2021-05-31] MEDS: QUEtiapine FUMARATE 100 MG TABLET 300 MG PO (13:20)
[2021-05-31 15:45] VITALS: BP 143/90; PULSE 96; RESP 18; TEMP 36.5; O2SAT 99
--- NOTE | 2021-05-31 16:05 | PC.NURSE ---
Patient's mother arrived for discharge home. Discussed discharge packet. Patient signed and verbalized understanding. Mother has already picked up prescription from pharmacy. All personal belongings sent with patient and mother.
--- NOTE | 2021-06-06 14:23 | PC.NURSE ---
Unable to contact for discharge call back.
== END 2021-05-31 16:05 | disposition home or self-care (01) ==
LOC: CHSED 18:08 → CHS2ND 18:15
PROVIDERS: Nurse Practitioner; Admitting Provider Emergency Medicine; Emergency Provider Emergency Medicine; Visit Provider Emergency Medicine
DX: E87.1 Hypo-osmolality and hyponatremia (principal); R63.1 Polydipsia; G40.909 Epilepsy, unspecified, not intractable, without status epilepticus; R73.03 Prediabetes; F20.9 Schizophrenia, unspecified
CPT/HCPCS: 36415; 80053; 84295; 96361; 96374; 99285; A9270; G0378; J2060; J7030; J7040; J7131